=== PATIENT | female | born 1945 | race Two or more races ===

== ENCOUNTER → 2020-08-10 10:24 | Outpatient (BNV) | payer MEDICARE, SELFPAY | PROVIDERS: PCP Nurse Practitioner Family; Visit Provider Internal Medicine Medical Oncology | DX: D51.9 Vitamin B12 deficiency anemia, unspecified (principal); Z85.038 Personal history of other malignant neoplasm of large intestine; Z92.21 Personal history of antineoplastic chemotherapy; Z98.0 Intestinal bypass and anastomosis status | CPT/HCPCS: 99212; 99213; 99214 ==

== ENCOUNTER 2020-09-13 14:40 | Outpatient (REF) | payer MEDICARE, SELFPAY ==
--- NOTE | 2020-09-13 14:46 | MM_ITS ---
EXAMINATION: MM SCREENING DIGITAL BREAST TOMOSYNTHESIS, BILATERAL CLINICAL INFORMATION: Screening. Asymptomatic. The lifetime risk of breast cancer based on the Tyrer-Cuzick Model is 2%. COMPARISON: Mammography: 09/08/2019, 09/02/2018, 08/16/2017 TECHNIQUE: Digital breast tomosynthesis is performed in both the craniocaudal and mediolateral oblique views along with computer-aided detection (CAD). Synthesized 2D images are generated from the tomosynthesis. FINDINGS: There are scattered areas of fibroglandular density (ACR BI-RADS breast composition Category b). There are no significant masses, abnormal calcifications, or other abnormalities. There is chronic bilateral nipple retraction. Scattered bilateral benign vascular and round and coarse calcifications are again seen. No significant changes. MM/MM tomosynthesis screening BI IMPRESSION: No significant changes from prior studies. ASSESSMENT: BI-RADS 2: Benign RECOMMENDATION: Routine annual mammography screening. This patient's information was entered into a reminder system with a target due date for their next mammogram.
== END 2020-09-13 14:41 | disposition home or self-care (01) ==
LOC: HO.MAMMO 14:40
PROVIDERS: Visit Provider Nurse Practitioner Family
DX: Z12.31 Encounter for screening mammogram for malignant neoplasm of breast (principal)
CPT/HCPCS: 77063; 77067

== ENCOUNTER 2020-12-14 13:15 | Emergency (ER) | payer MEDICARE, SELFPAY ==
--- NOTE | ~2020-12-14 | XR_ITS ---
EXAMINATION: CHEST AND CERVICAL SPINE CLINICAL INFORMATION: Tachycardia and neck pain COMPARISON: Chest radiograph 06/25/2012 TECHNIQUE: Single view chest 4 views cervical spine FINDINGS: Chest: No significant abnormality is seen involving the heart lungs mediastinum or bony thorax. Surgical clips are present in the midepigastrium. Cervical spine: There is mild exaggerated cervical lordosis. Mild degenerative changes are present with some endplate changes and mild disc space narrowing at C3-C4 and C4-C5. There is minimal retrolisthesis of C4 upon C5. No soft tissue swelling or fractures are seen.. XR/XR chest 1V IMPRESSION: No acute intrathoracic disease Degenerative changes in the cervical spine with minimal retrolisthesis C4 upon C5.
--- NOTE | ~2020-12-14 | XR_ITS ---
EXAMINATION: CHEST AND CERVICAL SPINE CLINICAL INFORMATION: Tachycardia and neck pain COMPARISON: Chest radiograph 06/25/2012 TECHNIQUE: Single view chest 4 views cervical spine FINDINGS: Chest: No significant abnormality is seen involving the heart lungs mediastinum or bony thorax. Surgical clips are present in the midepigastrium. Cervical spine: There is mild exaggerated cervical lordosis. Mild degenerative changes are present with some endplate changes and mild disc space narrowing at C3-C4 and C4-C5. There is minimal retrolisthesis of C4 upon C5. No soft tissue swelling or fractures are seen.. XR/XR cervical spine 2V IMPRESSION: No acute intrathoracic disease Degenerative changes in the cervical spine with minimal retrolisthesis C4 upon C5.
--- NOTE | ~2020-12-14 | CT_ITS ---
EXAMINATION: CT CHEST WITHOUT CONTRAST CLINICAL INFORMATION: Low O2 saturation. History of colon cancer. COMPARISON: Chest x-ray 12/14/2020. CT abdomen and pelvis 06/07/2009. PET/CT study 08/04/2015. TECHNIQUE: Multidetector volumetric CT imaging of the chest was done. Axial MIP volume rendering provided. Sagittal and coronal reformatted images were obtained. This CT examination was performed using dose optimization techniques as appropriate, variously including the following: *Automated exposure control. *Adjustment of mA and/or kV according to patient size (this includes techniques or standardized protocols for targeted exams where dose is matched to indication/reason for exam; i.e. extremities or head). *Use of iterative reconstruction technique. DLP: 177 mGy-cm FINDINGS: LUNGS: No focal consolidation. No interstitial lung disease. The central bronchial airways are open. Lung Nodules: Right Lun. There is a small area of tree-in-bud opacities in the peripheral right upper lobe, axial image 23-25/53 series 4. These are not seen on the prior PET/CT study of 08/04/2015. 2. A 6 x 4 mm (average diameter 5 mm) nodule right upper lobe, axial image 162/441 series 5. This demonstrates irregular margins. This lesion was present on the PET/CT study of 08/04/2015 and remains unchanged. 3. A 3 mm nodule right middle lobe, axial image 272/441 series 5. 4. A 5 mm nodule right lower lobe, axial image 248/441 series 5. This lesion was present on the PET/CT study of 08/04/2015 and remains unchanged. 5. A 4 mm nodule right upper lobe, axial image 101/441 series 5. Left Lun. A 4 mm nodule left upper lobe, axial image 80/441 series 5. 2. A 4 mm nodule left lower lobe, axial image 231/441 series 5. 3. A 2-3 mm left lower lobe lung nodule, axial image 224/441 series 5. There are a few additional 1 to 2 mm sized lung nodules scattered bilaterally. MEDIASTINUM: There is no mediastinal mass or significant lymphadenopathy. The heart size is normal. No pericardial effusion. Moderate volume of coronary artery calcifications. Small volume of calcifications of the thoracic aorta. No aneurysm of the aorta. The thyroid is unremarkable. PLEURA: There is no pleural effusion. No pleural mass or thickening. AXILLA: No lymphadenopathy. UPPER ABDOMEN: There are surgical clips in the upper central abdomen. By history, patient's had a prior right hemicolectomy. OSSEOUS STRUCTURES: No acute osseous abnormality. There is a large vertebral hemangioma involving the T11 vertebrae. CT/CT chest wo con IMPRESSION: 1. No acute abnormality of the chest. 2. Multiple small bilateral lung nodules. The largest measures 6 x 4 mm in the right upper lobe and was present on a prior PET/CT study of 08/04/2015. A group of tree-in-bud opacities in the right upper lobe were not present on the prior PET/CT study. Tree-in-bud opacities are nonspecific but can be seen with inflammation. Various management parameters for solitary pulmonary nodules are in the literature. According to the UPDATED 2017 Fleischner Society recommendations, the advised follow up imaging for solid nodules < 6 mm is: LOW RISK PATIENT: No routine follow up. HIGH RISK PATIENT: Optional CT at 12 months. Reference: Guidelines for Management of Incidental Pulmonary Nodules Detected on CT Images: From the Fleischner Society 2017.
[2020-12-14 15:22] VITALS: BP 153/63; PULSE 97; RESP 18; TEMP 36.9; O2SAT 98; BMI 29.1
[2020-12-14 20:45] VITALS: BP 153/84; PULSE 110; RESP 18; TEMP 37.3; O2SAT 95
--- NOTE | 2020-12-14 20:52 | ECG_ITS ---
Test Reason : CHEST AND NECK PAIN Blood Pressure : / mmHG Vent. Rate : 093 BPM Atrial Rate : 093 BPM P-R Int : 152 ms QRS Dur : 076 ms QT Int : 360 ms P-R-T Axes : 066 063 059 degrees QTc Int : 447 ms Normal sinus rhythm Possible Anterior infarct , age undetermined Abnormal ECG When compared with ECG of 25-JUN-2012 11:24, No significant change was found Referred By: Rebeka Vegas Electronically Signed By:JOHANA PELAYO MD
[2020-12-14 21:09] LABS: MANUAL DIFF FLAG NO
[2020-12-14 21:11] LABS: Basophils Percent Auto 0.3 % (0-2); Eosinophils Percent Auto 0.2 % (0-4); Hematocrit 36.4 % (37-47); Hemoglobin 11.3 g/dl (12.0-16.0); Imm Gran Abs Auto 0.03 X10*3/uL (0.00-0.03); Imm Gran Pct Auto 0.2 % (0.0-0.4); Lymphocytes Absolute Auto 2.1 X10*3/uL (1.2-4.9); Lymphocytes Percent Auto 17.4 % (20-40); Mean Corpuscular Volume 83.9 fL (80-98); Mean Platelet Volume 11.1 fL (9.4-12.3); Monocytes Percent Auto 8.1 % (2-11); Neutrophils Percent Auto 73.8 % (45-73); Platelet Count 222 X10*3/uL (160-400); Red Blood Count 4.34 X10*6/uL (4.20-5.50); Red Cell Distribution Width 15.3 % (11.0-16.0); White Blood Count 12.3 X10*3/uL (4.8-10.8)
[2020-12-14 21:16] LABS: INTERNATIONAL NORM RATIO 1.2 (0.9-1.1); Prothrombin Time 13.8 SEC (10.8-13.0)
[2020-12-14 21:18] LABS: Partial Thromboplastin Time 33.5 SEC (24.1-38.0)
[2020-12-14 21:32] LABS: Lactic Acid 1.3 mmol/L (0.5-2.0)
[2020-12-14 21:42] LABS: Troponin-I High Sensitivity 3.5 ng/L (<3.5-17.0)
--- NOTE | 2020-12-14 21:46 | ED_ITS ---
HPI - General Adult General Chief complaint: Neck Pain/Injury Stated complaint: neck pain Time Seen by Provider: 12/14/20 22:07 Source: patient Mode of arrival: ambulatory Limitations: language barrier History of Present Illness HPI narrative: 75-year-old female with past medical history of colon cancer, primary biliary cirrhosis, hepatectomy, colon resection secondary to small-bowel obstruction, on opioids for pain management presents with 4 days of neck pain. She states that the pain is to both muscles on the sides of her neck, it makes it hard for her to turn her neck left or right. She does not describe any other symptoms, denies chest pain or pressure, palpitations, shortness of breath, abdominal pain, abdominal distention, dysuria, hematuria, loss of balance, edema or any other concerning symptoms. Onset (ago): day(s) (4) Location: neck Radiation: non-radiation Severity: moderate Severity scale (1-10): 7 Quality: aching Pain Consistency: constant Relieving factors: none Exacerbating factors: movement Associated symptoms: denies other symptoms Treatments prior to arrival: none Related Data Home Medications Medication Instructions Recorded Confirmed aspirin 1 tab PO DAILY 08/10/20 08/10/20 atorvastatin 1 tab PO DAILY 08/10/20 08/10/20 calcium citrate [Calcitrate] 1 tab PO BID 08/10/20 08/10/20 cholecalciferol (vitamin D3) 1 cap PO DAILY 08/10/20 08/10/20 [Vitamin D3] fluticasone propion-salmeterol 2 puff INHALATION BID 08/10/20 08/10/20 [Advair HFA] folic acid 1 tab PO DAILY 08/10/20 08/10/20 levothyroxine 1 tab PO DAILY 08/10/20 08/10/20 losartan-hydrochlorothiazide 1 tab PO DAILY 08/10/20 08/10/20 omeprazole 1 cap PO BID 08/10/20 08/10/20 oxycodone 1 tab PO Q12H PRN 08/10/20 08/10/20 zolpidem 1 tab PO BEDTIME PRN 08/10/20 08/10/20 Previous Rx's Medication Instructions Recorded ondansetron HCl [Zofran] 4 mg PO Q8H PRN #30 tab 12/15/20 Allergies Allergy/AdvReac Type Severity Reaction Status Date / Time No Known Allergies Allergy Verified 12/14/20 15:22 Review of Systems Review of Systems: Constitutional: No Fever, No Chills ENT/Mouth: No Ear Pain, No Hoarseness, No sore throat Eyes: No Eye Pain, No Swelling, No Redness, No Foreign Body Cardiovascular: No Chest Pain, No SOB Respiratory: No Cough, No Dyspnea Gastrointestinal: No Nausea, No Vomiting, No Diarrhea, No abdominal Pain Genitourinary: No Dysuria, No Hematuria Musculoskeletal: positive neck pain, No Myalgias, No Joint Swelling Skin: No Skin lacerations, No rash Neuro: No Weakness, No Numbness, No Paresthesias, No Loss of Consciousness, No Dizziness, No Headache Psych: No Anxiety/Panic, No Depression Heme/Lymph: no easy bruising, no Lymphadenopathy Endocrine: No Polyuria, No Polydipsia Yes all other systems are reviewed and are negative FOR[facility]LY [facility], [facility] Past Medical History Attestation statement: The following information was validated with the patient. Source: old records reviewed Medical History (Updated 12/15/20 @ 00:19 by Rebeka Vegas NP) Asthma Colon cancer High cholesterol HTN (hypertension) Insomnia Surgical History History of surgery of liver Social History Social History Alcohol intake: never Smoking Status: Unknown if ever smoked Smoked in Last 30 Days: No Use of substances other than those prescribed or required for medical reasons: No Advance Directives: No Advance Directives Information Provided: No Physical Exam 2 Vital Signs: Vital Signs: Last Vital Signs Temp 98.0 F 12/14/20 23:38 Pulse 85 12/14/20 23:38 Resp 18 12/14/20 23:38 BP 155/67 H 12/14/20 23:38 Pulse Ox 97 12/14/20 23:38 Body Mass Index 29.1 Appearance: Alert. Oriented X3. No acute distress. Head: Normal external exam. Normocephalic. Atraumatic. No Silva signs noted. No raccoon eyes noted Eyes: PERRLA. EOMI. Conjunctiva and sclera normal. Eyelids normal. ENT: TM's Normal. Pharynx normal. Uvula midline. Moist mucous membranes. No trismus noted. No drooling noted. No muffled voice noted. Neck: Tenderness noted to sternocleidomastoid muscles, no cervical lymphadenopathy, Normal inspection. Neck supple. Thyroid Normal. No meningeal signs. No neck mass noted. CVS: Normal heart rate and rhythm. Heart sound normal. No murmurs noted. Pulses equal to all extremities. Respiratory: No respiratory distress. Painless inspiration. Breath sounds normal. No wheezes/rales/rhonchi noted. Chest nontender. No accessory muscle usage noted or decreased air movement noted. Abdomen: Soft and nontender. Bowel sounds normal in all 4 quadrants. No distention noted. No organomegaly noted. No visible injury noted. Back: No CVA tenderness. Full range of motion noted. Skin: Skin warm and dry. Normal skin color. Normal skin turgor. No rashes/lesions/lacerations noted. Extremities: No lower extremity edema. Extremities exhibit normal range of motion. Extremities nontender. Neuro: cranial nerves 2-12 intact, no focal neural deficits, strength 5/5 to all extremities, No motor deficit. No sensory deficit. Reflexes normal. Course Course Course Narrative: 75-year-old female with history of colon cancer, primary biliary cirrhosis, liver resection, colon resection, presents with 4 days of neck pain. Had a waiting room time of 7 hours and 32 minutes prior to presenting to bed 21. Vital signs show O2 sat of 94% on my evaluation, will order CT scan of the chest, x-rays of cervical spine. Patient did have hepatectomy with removal of 30% of her liver with pathology showing reactive lymphoid hyperplasia also primary biliary cirrhosis. Also had bowel obstruction complications and had small-bowel resection on November 30, 2015. Review of PET scan from 08/04/2015 does not indicate any findings in the lungs or at T11. Investigation of chart shows positive history of colon cancer, with PET scan showing concern for liver lesion dating back to 2016. Do not see any notation regarding T11 hemangioma versus mass or notation of multiple lung nodules bilaterally. X-rays are negative for acute findings however does show degenerative disc disease. Lab values and diagnostic studies discussed with Dr Krishnan. These findings were discussed with hospitalist, hospitalist feels that this patient can be followed up outpatient Oncology, discussion with family, brought in to discuss this plan. Patient and patient's family feel confident that they can manage care as an outpatient and follow-up with Oncology Dr. Lopez tomorrow. [place] text message sent to Dr. Lopez as well as chart. park interpreter utilized for all correspondence. Will translate utilized for discharge instructions. Medical Decision Making Differential Diagnosis Differential Diagnosis: Neck strain, degenerative disc disease Medical Records Medical records reviewed: Yes I reviewed the patient's medical records. Lab Data Lab results reviewed: Yes I reviewed the patient's lab results. Result diagrams: 12/14/20 21:02 12/14/20 21:53 Labs: Lab Results 12/14/20 12/14/20 12/14/20 Range/Units 21:02 21:02 21:02 WBC 12.3 H (4.8-10.8) X10*3/uL RBC 4.34 (4.20-5.50) X10*6/uL Hgb 11.3 L (12.0-16.0) g/dl Hct 36.4 L (37-47) % MCV 83.9 (80-98) fL MCH 26.0 L (27.0-33.0) pg MCHC 31.0 (31.0-35.0) g/dl RDW 15.3 (11.0-16.0) % Plt Count 222 (160-400) X10*3/uL MPV 11.1 (9.4-12.3) fL Immature Gran % (Auto) 0.2 (0.0-0.4) % Neut % (Auto) 73.8 H (45-73) % Lymph % (Auto) 17.4 L (20-40) % [place] % (Auto) 8.1 (2-11) % Eos % (Auto) 0.2 (0-4) % Baso % (Auto) 0.3 (0-2) % Lymph # (Auto) 2.1 (1.2-4.9) X10*3/uL [place] # (Auto) 1.0 (0.1-1.2) X10*3/uL Eos # (Auto) 0.0 (0.0-0.4) X10*3/uL Baso # (Auto) 0.0 (0.0-0.2) X10*3/uL Abs Immat Gran (auto) 0.03 (0.00-0.03) X10*3/uL Absolute Neuts (auto) 9.0 H (2.0-8.3) X10*3/uL Absolute Nucleated RBC 0.000 (0.0-0.012) X10*3/uL Nucleated RBC % (auto) 0.0 (0.0-0.2) /100WBC PT 13.8 H (10.8-13.0) SEC INR 1.2 H (0.9-1.1) APTT 33.5 (24.1-38.0) SEC Sodium (135-145) mmol/L Potassium (3.3-5.1) mmol/L Chloride (96-108) mmol/L Carbon Dioxide (22-29) mmol/L Anion Gap (12-20) BUN (9-16) mg/dL Creatinine (0.5-1.4) mg/dL Estim Creat Clear Calc Estimated GFR Random Glucose (60-115) mg/dL Lactic Acid 1.3 (0.5-2.0) mmol/L Calcium (8.4-10.2) mg/dL Magnesium (1.6-2.6) mg/dL Total Bilirubin (0.0-1.0) mg/dL Direct Bilirubin (0.0-0.5) mg/dL AST (5-31) U/L ALT (0-31) U/L Alkaline Phosphatase (39-117) U/L Troponin I High Sens (<3.5-17.0) ng/L Total Protein (6.5-8.0) g/dL Albumin (3.5-5.0) g/dL Lipase (8-78) U/L Urine Color Urine Appearance Urine pH (5.0-8.0) Ur Specific [place] (1.005-1.025) Urine Protein (NEG-TRACE) MG/DL Urine Glucose (UA) (NEG) MG/DL Urine Ketones (NEG) MG/DL Urine Blood (NEG) Urine Nitrite (NEG) Ur Leukocyte Esterase (NEG) Coronavirus (PCR) (Negative) Influenza Type A (PCR) (Negative) Influenza Type B (PCR) (Negative) RSV RNA Qual (PCR) (Negative) 12/14/20 12/14/20 12/14/20 Range/Units 21:02 21:32 21:53 WBC (4.8-10.8) X10*3/uL RBC (4.20-5.50) X10*6/uL Hgb (12.0-16.0) g/dl Hct (37-47) % MCV (80-98) fL MCH (27.0-33.0) pg MCHC (31.0-35.0) g/dl RDW (11.0-16.0) % Plt Count (160-400) X10*3/uL MPV (9.4-12.3) fL Immature Gran % (Auto) (0.0-0.4) % Neut % (Auto) (45-73) % Lymph % (Auto) (20-40) % [place] % (Auto) (2-11) % Eos % (Auto) (0-4) % Baso % (Auto) (0-2) % Lymph # (Auto) (1.2-4.9) X10*3/uL [place] # (Auto) (0.1-1.2) X10*3/uL Eos # (Auto) (0.0-0.4) X10*3/uL Baso # (Auto) (0.0-0.2) X10*3/uL Abs Immat Gran (auto) (0.00-0.03) X10*3/uL Absolute Neuts (auto) (2.0-8.3) X10*3/uL Absolute Nucleated RBC (0.0-0.012) X10*3/uL Nucleated RBC % (auto) (0.0-0.2) /100WBC PT (10.8-13.0) SEC INR (0.9-1.1) APTT (24.1-38.0) SEC Sodium 137 (135-145) mmol/L Potassium 3.5 (3.3-5.1) mmol/L Chloride 96 (96-108) mmol/L Carbon Dioxide 30 H (22-29) mmol/L Anion Gap 15 (12-20) BUN 10 (9-16) mg/dL Creatinine 0.73 (0.5-1.4) mg/dL Estim Creat Clear Calc 46.2 Estimated GFR > 60 Random Glucose 119 H (60-115) mg/dL Lactic Acid (0.5-2.0) mmol/L Calcium 9.4 (8.4-10.2) mg/dL Magnesium 2.1 (1.6-2.6) mg/dL Total Bilirubin 1.7 H (0.0-1.0) mg/dL Direct Bilirubin 0.7 H (0.0-0.5) mg/dL AST 12 (5-31) U/L ALT 9 (0-31) U/L Alkaline Phosphatase 76 (39-117) U/L Troponin I High Sens 3.5 (<3.5-17.0) ng/L Total Protein 7.2 (6.5-8.0) g/dL Albumin 4.3 (3.5-5.0) g/dL Lipase 22 (8-78) U/L Urine Color Urine Appearance Urine pH (5.0-8.0) Ur Specific [place] (1.005-1.025) Urine Protein (NEG-TRACE) MG/DL Urine Glucose (UA) (NEG) MG/DL Urine Ketones (NEG) MG/DL Urine Blood (NEG) Urine Nitrite (NEG) Ur Leukocyte Esterase (NEG) Coronavirus (PCR) NEGATIVE (Negative) Influenza Type A (PCR) NEGATIVE (Negative) Influenza Type B (PCR) NEGATIVE (Negative) RSV RNA Qual (PCR) NEGATIVE (Negative) 12/14/20 Range/Units 23:37 WBC (4.8-10.8) X10*3/uL RBC (4.20-5.50) X10*6/uL Hgb (12.0-16.0) g/dl Hct (37-47) % MCV (80-98) fL MCH (27.0-33.0) pg MCHC (31.0-35.0) g/dl RDW (11.0-16.0) % Plt Count (160-400) X10*3/uL MPV (9.4-12.3) fL Immature Gran % (Auto) (0.0-0.4) % Neut % (Auto) (45-73) % Lymph % (Auto) (20-40) % [place] % (Auto) (2-11) % Eos % (Auto) (0-4) % Baso % (Auto) (0-2) % Lymph # (Auto) (1.2-4.9) X10*3/uL [place] # (Auto) (0.1-1.2) X10*3/uL Eos # (Auto) (0.0-0.4) X10*3/uL Baso # (Auto) (0.0-0.2) X10*3/uL Abs Immat Gran (auto) (0.00-0.03) X10*3/uL Absolute Neuts (auto) (2.0-8.3) X10*3/uL Absolute Nucleated RBC (0.0-0.012) X10*3/uL Nucleated RBC % (auto) (0.0-0.2) /100WBC PT (10.8-13.0) SEC INR (0.9-1.1) APTT (24.1-38.0) SEC Sodium (135-145) mmol/L Potassium (3.3-5.1) mmol/L Chloride (96-108) mmol/L Carbon Dioxide (22-29) mmol/L Anion Gap (12-20) BUN (9-16) mg/dL Creatinine (0.5-1.4) mg/dL Estim Creat Clear Calc Estimated GFR Random Glucose (60-115) mg/dL Lactic Acid (0.5-2.0) mmol/L Calcium (8.4-10.2) mg/dL Magnesium (1.6-2.6) mg/dL Total Bilirubin (0.0-1.0) mg/dL Direct Bilirubin (0.0-0.5) mg/dL AST (5-31) U/L ALT (0-31) U/L Alkaline Phosphatase (39-117) U/L Troponin I High Sens (<3.5-17.0) ng/L Total Protein (6.5-8.0) g/dL Albumin (3.5-5.0) g/dL Lipase (8-78) U/L Urine Color YELLOW Urine Appearance CLEAR Urine pH 7.0 (5.0-8.0) Ur Specific [place] 1.010 (1.005-1.025) Urine Protein NEG (NEG-TRACE) MG/DL Urine Glucose (UA) NEG (NEG) MG/DL Urine Ketones NEG (NEG) MG/DL Urine Blood NEG (NEG) Urine Nitrite NEG (NEG) Ur Leukocyte Esterase NEG (NEG) Coronavirus (PCR) (Negative) Influenza Type A (PCR) (Negative) Influenza Type B (PCR) (Negative) RSV RNA Qual (PCR) (Negative) Imaging Data Chest and cervical spine x-ray: Attestation: I personally reviewed and interpreted this imaging study as follows: Radiologist's impression: EXAMINATION: CHEST AND CERVICAL SPINE CLINICAL INFORMATION: Tachycardia and neck pain COMPARISON: Chest radiograph 06/25/2012 TECHNIQUE: Single view chest 4 views cervical spine FINDINGS: Chest: No significant abnormality is seen involving the heart lungs mediastinum or bony thorax. Surgical clips are present in the midepigastrium. Cervical spine: There is mild exaggerated cervical lordosis. Mild degenerative changes are present with some endplate changes and mild disc space narrowing at C3-C4 and C4-C5. There is minimal retrolisthesis of C4 upon C5. No soft tissue swelling or fractures are seen.. XR/XR cervical spine 2V IMPRESSION: No acute intrathoracic disease Degenerative changes in the cervical spine with minimal retrolisthesis C4 upon C5. CT scan - chest: Attestation: I personally reviewed and interpreted this imaging study as follows: Radiologist's impression: EXAMINATION: CT CHEST WITHOUT CONTRAST CLINICAL INFORMATION: Low O2 saturation. History of colon cancer. COMPARISON: Chest x-ray 12/14/2020. CT abdomen and pelvis 06/07/2009. PET/CT study 08/04/2015. TECHNIQUE: Multidetector volumetric CT imaging of the chest was done. Axial MIP volume rendering provided. Sagittal and coronal reformatted images were obtained. This CT examination was performed using dose optimization techniques as appropriate, variously including the following: *Automated exposure control. *Adjustment of mA and/or kV according to patient size (this includes techniques or standardized protocols for targeted exams where dose is matched to indication/reason for exam; i.e. extremities or head). *Use of iterative reconstruction technique. DLP: 177 mGy-cm FINDINGS: LUNGS: No focal consolidation. No interstitial lung disease. The central bronchial airways are open. Lung Nodules: Right Lun. There is a small area of tree-in-bud opacities in the peripheral right upper lobe, axial image 23-25/53 series 4. These are not seen on the prior PET/CT study of 08/04/2015. 2. A 6 x 4 mm (average diameter 5 mm) nodule right upper lobe, axial image 162/441 series 5. This demonstrates irregular margins. This lesion was present on the PET/CT study of 08/04/2015 and remains unchanged. 3. A 3 mm nodule right middle lobe, axial image 272/441 series 5. 4. A 5 mm nodule right lower lobe, axial image 248/441 series 5. This lesion was present on the PET/CT study of 08/04/2015 and remains unchanged. 5. A 4 mm nodule right upper lobe, axial image 101/441 series 5. Left Lun. A 4 mm nodule left upper lobe, axial image 80/441 series 5. 2. A 4 mm nodule left lower lobe, axial image 231/441 series 5. 3. A 2-3 mm left lower lobe lung nodule, axial image 224/441 series 5. There are a few additional 1 to 2 mm sized lung nodules scattered bilaterally. MEDIASTINUM: There is no mediastinal mass or significant lymphadenopathy. The heart size is normal. No pericardial effusion. Moderate volume of coronary artery calcifications. Small volume of calcifications of the thoracic aorta. No aneurysm of the aorta. The thyroid is unremarkable. PLEURA: There is no pleural effusion. No pleural mass or thickening. AXILLA: No lymphadenopathy. UPPER ABDOMEN: There are surgical clips in the upper central abdomen. By history, patient's had a prior right hemicolectomy. OSSEOUS STRUCTURES: No acute osseous abnormality. There is a large vertebral hemangioma involving the T11 vertebrae. CT/CT chest wo con IMPRESSION: 1. No acute abnormality of the chest. 2. Multiple small bilateral lung nodules. The largest measures 6 x 4 mm in the right upper lobe and was present on a prior PET/CT study of 08/04/2015. A group of tree-in-bud opacities in the right upper lobe were not present on the prior PET/CT study. Tree-in-bud opacities are nonspecific but can be seen with inflammation. Various management parameters for solitary pulmonary nodules are in the literature. According to the UPDATED 2017 Fleischner Society recommendations, the advised follow up imaging for solid nodules < 6 mm is: LOW RISK PATIENT: No routine follow up. HIGH RISK PATIENT: Optional CT at 12 months. Reference: Guidelines for Management of Incidental Pulmonary Nodules Detected on CT Images: From the Fleischner Society 2017. ECG Data Attestation: I personally reviewed and interpreted this ECG as follows: Prior ECG tracings: available for review Interpretation: Vent. rate 93 BPM SC interval 152 ms QRS duration 76 ms QT/QTc 360/447 ms P-R-T axes 66 63 59 Normal sinus rhythm Possible Anterior infarct , age undetermined Abnormal ECG When compared with ECG of 25-JUN-2012 11:24, No significant change was found Date December 14, 2020, time 9:17 p.m. Discharge Plan Discharge Clinical Impression: Disc disorder of cervical region, Hemangioma of spine, Incidental pulmonary nodule, > 3mm and < 8mm Patient Disposition: Home, Self-Care Instructions: Cervical Radiculopathy (ED), Pulmonary Nodules (ED), Degenerative Disc Disease (ED) Additional Instructions: Te evaluaron por dolor de marcin. Bas?ndome en beth antecedentes de c?ncer de colon y cirrosis biliar primaria ped? domingo tomograf?a computarizada de los pulmones. La tomograf?a computarizada del t?rax muestra m?ltiples n?dulos tanto en los pulmones johnathan en un hemangioma o tumor en las v?rtebras T11. Estos hallazgos son altamente sospechosos para la enfermedad metast?tania. La enfermedad metast?tania significa que el c?ncer puede haberse diseminado a los pulmones y la columna vertebral. Estos hallazgos no estuvieron presentes en sorto exploraci?n por PET en 2015. Es muy importante que tray un seguimiento con sorto onc?logo, el Dr. Lopez. Por favor, ll?dinah ma?pineda y solicite domingo adrianne para la evaluaci?n. Le recetamos n?useas a Zofran. Por favor, tome cecilia medicamento seg?n las instrucciones. Por favor, tome sorto oxicodona johnathan se le recet? anteriormente. Usted recibi? domingo receta el 12/11/2020. Esme por elegir cecilia departamento de emergencias para sorto evaluaci?n. Por favor, tray un seguimiento con el m?dico de atenci?n primaria seg?n sea necesa summer. Regrese al servicio de emergencias para cualquier s?ntoma nuevo, preocupante o que empeore. You were evaluated for neck pain. Based on her past history of colon cancer and primary biliary cirrhosis I ordered a CT scan of the lungs. CT scan of the chest shows multiple nodules in both lungs and a hemangioma or tumor on T11 vertebrae. These findings are highly suspicious for metastatic disease. Metastatic disease means that the cancer may have spread to your lungs and spine. These findings were not present on your PET scan in 2016. Is very important that you follow-up with your oncologist, Dr. Lopez. Please call her tomorrow and request an appointment for evaluation. We prescribed Zofran for nausea. Please take this medication as directed. Please take your oxycodone as previously prescribed. You received a prescription on 12/11/2020. Thank you for choosing this emergency department for evaluation. Please follow-up with primary care physician as needed. Return to the emergency department for any new, concerning, or worsening symptoms. Prescriptions: New ondansetron HCl [Zofran] 4 mg tablet 4 mg PO Q8H PRN (Reason: nausea and vomiting) Qty: 30 RF: 0 No Action omeprazole 40 mg capsule,delayed release(DR/EC) 1 cap PO BID RF: 0 folic acid 1 mg tablet 1 tab PO DAILY RF: 0 Advair HFA 115-21 mcg/actuation HFA aerosol inhaler 2 puff inhalation BID RF: 0 atorvastatin 10 mg tablet 1 tab PO DAILY RF: 0 aspirin 81 mg tablet,delayed release (DR/EC) 1 tab PO DAILY RF: 0 levothyroxine 75 mcg tablet 1 tab PO DAILY RF: 0 zolpidem 5 mg tablet 1 tab PO BEDTIME PRN (Reason: Insomnia) RF: 0 losartan-hydrochlorothiazide 50-12.5 mg tablet 1 tab PO DAILY RF: 0 oxycodone 5 mg tablet 1 tab PO Q12H PRN (Reason: moderate pain) RF: 0 calcium citrate [Calcitrate] 200 mg (950 mg) tablet 1 tab PO BID RF: 0 cholecalciferol (vitamin D3) [Vitamin D3] 50 mcg (2,000 unit) capsule 1 cap PO DAILY RF: 0 Referrals: Aakash Lopez MD [Physician] - 2 days (Tree-in-bud opacities, multiple pulmonary nodules, have angioma or mass on T11) Interventions: ED Discharge Assessment Last Done: 12/15/20 00:51 Discharge Date/Time: 12/15/20 00:54
[2020-12-14] MEDS: 0.9 % Sodium Chloride 1,000 ML 999 ML IVCONT ×2 (22:16→23:33)
[2020-12-14 22:18] VITALS: BP 150/75; PULSE 87; RESP 16; O2SAT 97
[2020-12-14 22:19] LABS: Influenza A PCR NEGATIVE (Negative); Influenza B PCR NEGATIVE (Negative); Resp Syncy Virus RNA Qual PCR NEGATIVE (Negative); SARS COV2 PCR INHOUSE NEGATIVE (Negative)
[2020-12-14 22:36] LABS: Alanine Aminotransferase 9 U/L (0-31); Albumin Level 4.3 g/dL (3.5-5.0); Alkaline Phosphatase 76 U/L (39-117); Anion Gap 15 (12-20); Aspartate Amino Transferase 12 U/L (5-31); Bilirubin Direct 0.7 mg/dL (0.0-0.5); Bilirubin Total 1.7 mg/dL (0.0-1.0); Blood Urea Nitrogen 10 mg/dL (9-16); Calcium 9.4 mg/dL (8.4-10.2); Carbon Dioxide 30 mmol/L (22-29); Chloride 96 mmol/L (96-108); Creatinine Clr Calc Pharmacy 46.2; Estimated Glomerular Filt Rate > 60; Glucose Random 119 mg/dL (60-115); Lipase 22 U/L (8-78); Magnesium 2.1 mg/dL (1.6-2.6); Potassium 3.5 mmol/L (3.3-5.1); Sodium 137 mmol/L (135-145); Total Protein 7.2 g/dL (6.5-8.0)
[2020-12-14 23:38] VITALS: BP 155/67; PULSE 85; RESP 18; TEMP 36.7; O2SAT 97
[2020-12-14 23:47] LABS: Glucose Urine UA NEG (NEG); Leukocyte Esterase Urine NEG (NEG); Nitrite Urine NEG (NEG); Urine Blood NEG (NEG); Urine Ketones NEG (NEG); Urine Protein NEG (NEG-TRACE)
[2020-12-14 23:51] LABS: Appearance Urine CLEAR; Color Urine YELLOW
[2020-12-15] MEDS: oxyCODONE HCl Immed Release 5 MG TABLET PO (00:44)
== END 2020-12-15 00:54 | disposition home or self-care (01) ==
PROVIDERS: Nurse Practitioner Family; Emergency Provider Emergency Medicine
DX: M50.11 Cervical disc disorder with radiculopathy, high cervical region (principal); D18.09 Hemangioma of other sites; R00.0 Tachycardia, unspecified; R91.8 Other nonspecific abnormal finding of lung field; Z20.822 Contact with and (suspected) exposure to COVID-19; I10 Essential (primary) hypertension; K74.3 Primary biliary cirrhosis; J45.909 Unspecified asthma, uncomplicated; Z85.038 Personal history of other malignant neoplasm of large intestine; Z79.891 Long term (current) use of opiate analgesic; Z79.82 Long term (current) use of aspirin; Z79.899 Other long term (current) drug therapy
CPT/HCPCS: 0241U; 36415; 71045; 71250; 72040; 80048; 80076; 81003; 83605; 83690; 83735; 84484; 85025; 85610; 85730; 87040; 93005; 99284

== ENCOUNTER 2021-09-16 10:35 | Outpatient (REF) | payer MEDICARE, SELFPAY ==
--- NOTE | ~2021-09-16 | MM_ITS ---
EXAMINATION: MM SCREENING DIGITAL BREAST TOMOSYNTHESIS, BILATERAL CLINICAL INFORMATION: Screening. Asymptomatic. The lifetime risk of breast cancer based on the Tyrer-Cuzick Model is 1%. COMPARISON: Mammography: 09/13/2020, 09/08/2019, 09/02/2018 TECHNIQUE: Digital breast tomosynthesis is performed in both the craniocaudal and mediolateral oblique views along with computer-aided detection (CAD). Synthesized 2D images are generated from the tomosynthesis. Additional right MLO view is provided. FINDINGS: There are scattered areas of fibroglandular density (ACR BI-RADS breast composition Category b). There are no significant masses, abnormal calcifications, or other abnormalities. Parenchymal pattern is similar to prior exams. No developing density. There are scattered benign coarse and vascular calcifications again seen. MM/MM tomosynthesis screening BI IMPRESSION: No mammographic evidence of malignancy. ASSESSMENT: BI-RADS 2: Benign RECOMMENDATION: Routine annual mammography screening. This patient's information was entered into a reminder system with a target due date for their next mammogram.
== END 2021-09-16 10:36 | disposition home or self-care (01) ==
LOC: HO.MAMMO 10:35
PROVIDERS: Visit Provider Nurse Practitioner
DX: Z12.31 Encounter for screening mammogram for malignant neoplasm of breast (principal)
CPT/HCPCS: 77063; 77067

== ENCOUNTER 2022-09-21 12:00 | Outpatient (REF) | payer MEDICARE, SELFPAY ==
--- NOTE | ~2022-09-21 | CT_ITS ---
EXAMINATION: CT CHEST WITH CONTRAST CLINICAL INFORMATION: Colon cancer. COMPARISON: Previous chest CT scan most recent November 2020. TECHNIQUE: Multidetector volumetric CT imaging of the chest was obtained after the administration of 85 mL of Omnipaque 350 intravenous contrast without immediate adverse reactions. Axial MIP volume rendering provided. Sagittal and coronal reformatted images were obtained. This CT examination was performed using dose optimization techniques as appropriate, variously including the following: *Automated exposure control *Adjustment of mA and/or kV according to patient size (this includes techniques or standardized protocols for targeted exams where dose is matched to indication/reason for exam; i.e. extremities or head) *Use of iterative reconstruction technique DLP: 83 mGy-cm FINDINGS: LUNGS: Biapical pleural and parenchymal scarring that is stable. Stable bilateral pulmonary nodules, the largest measuring 7 mm in the right upper lobe axial image 204 series 7 and 5 mm in the left upper lobe axial image 110 series 7. Tree-in-bud clustered nodules in the posterior segment of the right upper lobe on November 2020 exam appeared decreased. No new pulmonary nodule. MEDIASTINUM: Small stable pericardial effusion. Normal heart size. No enlarged hilar or mediastinal lymph nodes. Normal caliber thoracic aorta. PLEURA: There is no pleural effusion. No pleural mass or thickening. AXILLA: No lymphadenopathy. UPPER ABDOMEN: See abdominal and pelvic CT report from the same day. OSSEOUS STRUCTURES: T11 vertebral body hemangioma. Mild degenerative changes of the spine. CT/CT chest w IV con IMPRESSION: Interval decrease in size and number of clustered peribronchial nodules or tree-in-bud appearance in the posterior segment of the right upper lobe from November 2020. Otherwise, the pulmonary nodules are stable. Fleischner guidelines were followed.
--- NOTE | ~2022-09-21 | CT_ITS ---
EXAMINATION: CT ABDOMEN AND PELVIS WITH CONTRAST CLINICAL INFORMATION: Weight loss, anorexia, and anemia. History of colon cancer. COMPARISON: Previous CT of the abdomen and pelvis from May 2015 and PET/CT July 2015. TECHNIQUE: Multidetector volumetric images were obtained from the superior aspect of the liver through the pubic symphysis following administration 85 mL of Omnipaque 350 intravenous contrast. Sagittal and coronal reformatted images were obtained on the technologist's workstation. Oral contrast: Yes This CT examination was performed using dose optimization techniques as appropriate, variously including the following: *Automated exposure control *Adjustment of mA and/or kV according to patient size (this includes techniques or standardized protocols for targeted exams where dose is matched to indication/reason for exam; i.e. extremities or head) *Use of iterative reconstruction technique DLP: 199 mGy-cm FINDINGS: LUNG BASES: The visualized lung bases are unremarkable. LIVER, GALLBLADDER, AND BILIARY TREE: Left lobe of the liver has been removed. There is no intrahepatic biliary duct dilatation. Common bile duct appears slightly dilated measuring 1.3 cm. There is echogenic material in the distal common bile duct questionable for stone or sludge. The gallbladder has been removed. PANCREAS: Slightly dilated main pancreatic duct in the neck of the pancreas measuring 4 mm. The pancreas is otherwise normal. SPLEEN: Unremarkable ADRENAL GLANDS: Unremarkable KIDNEYS AND URETERS: A 6.5 cm left renal cyst. A 1 cm right renal cyst. The kidneys are otherwise normal. No imaging followup recommended. There is mild dilatation of the right proximal ureter. Previously identified abnormal low-attenuation soft tissue anterior to the right psoas muscle on previous exams is no longer seen. BLADDER: Unremarkable. GASTROINTESTINAL TRACT: Postsurgical changes following right colectomy. There are also postsurgical changes to the small bowel in the right lower quadrant. There is mild dilatation of the small bowel at the surgical staple line. There is soft tissue thickening adjacent to the surgical staple line worrisome for mass. For example axial image 51 series 3 and coronal reconstructed image 30 and sagittal reconstructed image 58. There is mild diverticulosis. No evidence of diverticulitis. The stomach is unremarkable. ABDOMINAL WALL: No significant hernia is appreciated. LYMPH NODES: Small, small bowel mesentery lymph nodes. No enlarged lymph nodes. VASCULAR: Unremarkable PELVIC VISCERA: The uterus appears to have been removed. No pelvic mass. OSSEOUS STRUCTURES: Degenerative changes of the spine. T11 vertebral body hemangioma. CT/CT abdomen pelvis w IV con IMPRESSION: Postsurgical changes following resection of the left lobe of the liver new in the interval from previous exam. Slightly dilated common bile duct measuring 1.3 cm and increased soft tissue in the distal common bile duct questionable for stone or sludge. Mild dilatation of the main pancreatic duct in the neck of the pancreas measuring up to 4 mm. Postsurgical changes following right colectomy. Postsurgical changes to the small bowel new in the interval from previous exam. Abnormal soft tissue at the surgical staple line worrisome for mass. Diverticulosis of the colon. Bilateral renal cysts. Fleischner guidelines were followed.
[2022-09-21] MEDS: Barium Sulfate Oral (Mocha) 450 ML ORAL.SUSP 900 ML PO (14:51)
[2022-09-21] MEDS: iohexoL 350 MG/ML 100 ML INFUS..BTL IV (14:52)
== END 2022-09-21 12:01 | disposition home or self-care (01) ==
LOC: HO.CT 12:00
PROVIDERS: Visit Provider Internal Medicine Medical Oncology
DX: C18.9 Malignant neoplasm of colon, unspecified (principal); R91.8 Other nonspecific abnormal finding of lung field
CPT/HCPCS: 71260; 74177; Q9967

== ENCOUNTER 2022-09-22 12:35 | Outpatient (REF) | payer MEDICARE, SELFPAY ==
--- NOTE | ~2022-09-22 | MM_ITS ---
EXAMINATION: MM SCREENING DIGITAL BREAST TOMOSYNTHESIS, BILATERAL CLINICAL INFORMATION: Screening. Asymptomatic. The lifetime risk of breast cancer based on the Tyrer-Cuzick Model is 1%. COMPARISON: Mammography: 09/16/2021, 09/13/2020, 09/08/2019 TECHNIQUE: Digital breast tomosynthesis is performed in both the craniocaudal and mediolateral oblique views along with computer-aided detection (CAD). Synthesized 2D images are generated from the tomosynthesis. FINDINGS: There are scattered areas of fibroglandular density (ACR BI-RADS breast composition Category b). There are no significant masses, abnormal calcifications, or other abnormalities. Parenchymal pattern is similar to prior studies. There is no developing density or architectural abnormality. The axilla and skin contours are unremarkable. No significant changes. MM/MM tomosynthesis screening BI IMPRESSION: No mammographic evidence of malignancy. ASSESSMENT: BI-RADS 1: Negative RECOMMENDATION: Routine annual mammography screening. This patient's information was entered into a reminder system with a target due date for their next mammogram.
== END 2022-09-22 12:36 | disposition home or self-care (01) ==
LOC: HO.MAMMO 12:35
PROVIDERS: PCP Registered Nurse; Visit Provider Registered Nurse
DX: Z12.31 Encounter for screening mammogram for malignant neoplasm of breast (principal)
CPT/HCPCS: 77063; 77067

== ENCOUNTER → 2022-12-08 10:55 | Outpatient (BNVA) | payer OTHER, SELFPAY | PROVIDERS: PCP Registered Nurse; Referring Provider Internal Medicine Medical Oncology; Visit Provider Surgery | DX: L90.5 Scar conditions and fibrosis of skin (principal) | CPT/HCPCS: 99202 ==

== ENCOUNTER 2022-12-26 13:19 | Outpatient (REF) | payer OTHER, SELFPAY ==
--- NOTE | ~2022-12-26 | PE_ITS ---
EXAMINATION: Fluorine-18 FDG PET/CT Scan CLINICAL INDICATION: History of colon cancer. Restaging. PROCEDURE: 120 minutes following the intravenous administration of 17.4 mCi of fluorine 18 FDG, images from the base of the skull to the mid thighs were obtained using a combined PET/CT scanner with CT scan based attenuation correction. No intravenous contrast was administered. Transverse, coronal, sagittal, and volume reconstruction projections were obtained. The patient's blood glucose as determined by a finger stick, was 87 mg/dl immediately prior to injection. The radiotracer was injected intravenously through left antecubital superficial vein, without any complications. Total CT exam dose-length product 202.76 mGy-cm * These CT images were obtained using dose optimization techniques as appropriate, variously including the following: Automated exposure control * Adjustment of mA and/or kV according to patient size (this includes techniques or standardized protocols for targeted exams where dose is matched to indication/reason for exam; i.e. extremities or head) * Use of iterative reconstruction technique COMPARISON: Prior whole-body PET CT study done on 08/04/2015. Most recent prior CT scan of the chest abdomen and pelvis dated 09/21/2022. FINDINGS: NECK AND VISUALIZED HEAD: No FDG avid focal disease. Mucoperiosteal thickening is present involving the left maxillary sinus, appear similar to prior study. THORAX: No FDG avid focal disease. Persistent stable small volume non-FDG avid pericardial effusion is seen within the base of the pericardial space. ABDOMEN AND PELVIS: Postsurgical changes of left lobe of the liver resection is seen. No FDG avid liver, spleen or adrenal disease. The common bile duct is mildly dilated, similar to most recent prior study dated 09/21/2022. Mild circumferential apparent mural thickening is noted at the proximal site of the surgical anastomosis involving the small bowel at right mid abdomen associated with mild FDG avidity with SUV max of 5.8 (158/223). Note is made of slight misregistration artifact between the CT and the PET images in this region. Intense FDG avidity is noted in the region of the rectum/anal canal with SUV max of 7.0 (200/223), previously 6.4. Focal FDG avidity is also noted within the proximal as well as distal part of the sigmoid colon with SUV max of 5.7 and 5.6 respectively (179/223). Colonic diverticulosis related changes are present. Postsurgical changes of right-sided colectomy is seen. MUSCULOSKELETAL: T11 vertebral body hemangioma. No suspicious FDG avid disease. No significant change. VASCULAR: Atherosclerotic disease of the aorta and its branches. No evidence of aneurysm. PET/PET CT fusion skull to thigh IMPRESSION: 1. Nonspecific focal FDG avidity in the region of the rectum/anal canal (SUV max of 7.0) and sigmoid colon (2 sites with SUV max of 5.7 and 5.6 respectively). Direct visualization/colonoscopy is recommended for further clarification, if not recently performed. 2. Mild nonspecific FDG avidity at the site of surgical anastomosis involving the small bowel at right mid abdomen with SUV max of 5.8. 3. Postsurgical changes of left lobe of the liver resection and no evidence of any FDG avid liver or adrenal or splenic disease. 4. Persistent stable small volume non-FDG avid pericardial effusion at the base of the pericardial space and mild mucoperiosteal thickening without any FDG avidity involving the left maxillary sinus.
== END 2022-12-26 13:20 | disposition home or self-care (01) ==
LOC: HO.PET 13:19
PROVIDERS: PCP Registered Nurse; Visit Provider Internal Medicine Medical Oncology
DX: Z13.89 Encounter for screening for other disorder (principal)

== ENCOUNTER 2023-01-12 08:52 | Day surgery (SDC) | payer OTHER, SELFPAY ==
--- NOTE | 2023-01-11 13:34 | P.CONAN_ITS ---
HPI - Anesthesia Eval Consult details Narrative: 77yo F for Colonoscopy PMF Active Problems Active Problems: All Active Problems (Updated 01/11/23 @ 13:00 by Josefa Araujo RN) Colon cancer (Acute) B12 deficiency anemia (Acute) Past Medical History Medical History Allergic rhinitis Asthma Colon cancer Depression FH: cholecystectomy High cholesterol HTN (hypertension) Insomnia Iron deficiency anemia Prediabetes Family History Family History Other No family history of cancer Surgical History Surgical History H/O colonoscopy H/O resection of liver H/O right hemicolectomy H/O: hysterectomy History of surgery of liver Social History Social History Household Members: Spouse Housing: Apartment Are you a primary director of career resources to a significant other at home: No Do you presently have visiting nurse or other home services: Yes (every 3 months through insurance) Alcohol intake: never Patient Tobacco Use Status: Never used Tobacco Use of substances other than those prescribed or required for medical reasons: No Have you been hit, kicked, punched, or otherwise hurt by someone within the past year? If so, by whom?: No Do you feel safe in your current relationship?: Yes Advance Directives: No Advance Directives Information Provided: No Do you have thoughts of harming others: None Do you have a plan to hurt others: No Plan Do you have the means to hurt others: No Recently lost weight without trying: Yes Eating poorly because of decreased appetite: No Patient : No service: No Current occupational status: disabled Meds Allergies Allergy/AdvReac Type Severity Reaction Status Date / Time No Known Allergies Allergy Verified 01/18/23 11:03 Home Medications Medication Instructions Recorded Confirmed Last Taken Type aspirin 81 mg tablet,delayed 1 tab PO DAILY 08/10/20 01/18/23 Unknown History release atorvastatin 10 mg tablet 1 tab PO DAILY 08/10/20 01/18/23 Unknown History calcium citrate 200 mg (950 mg) 1 tab PO BID 08/10/20 01/18/23 Unknown History tablet (Calcitrate) cholecalciferol (vitamin D3) 50 1 cap PO DAILY 08/10/20 01/18/23 Unknown History mcg (2,000 unit) capsule (Vitamin D3) fluticasone propionate 115 2 puff inhalation BID 08/10/20 01/18/23 Unknown History mcg-salmeterol 21 mcg/actuation HFA inhaler (Advair HFA) levothyroxine 75 mcg tablet 1 tab PO DAILY 08/10/20 01/18/23 Unknown History losartan 50 mg-hydrochlorothiazide 1 tab PO DAILY 08/10/20 01/18/23 01/12/23 History 12.5 mg tablet omeprazole 40 mg capsule,delayed 1 cap PO BID 08/10/20 01/18/23 Unknown History release zolpidem 5 mg tablet 1 tab PO BEDTIME PRN Insomnia 08/10/20 01/18/23 Unknown History naproxen 250 mg tablet 250 mg PO DAILY PRN moderate pain 01/11/23 01/18/23 Unknown History Exam Exam Date and Time: January 11, 2023 1334 Pertinent Lab Results Pertinent Lab Results: Laboratory Tests 01/02/23 01/02/23 08:42 08:42 WBC 6.9 Hgb 10.9 L Hct 35.8 L Plt Count 200 Sodium 140 Potassium 4.5 Chloride 102 Carbon Dioxide 28 BUN 14 Creatinine 0.78 Assessment and Plan Assessment Anesthesia Assessment: Chart Reviewed
[2023-01-12 10:20] VITALS: BMI 33.8
--- NOTE | 2023-01-12 10:25 | HO.ANESPROP2 ---
[facility] Active Problems Active Problems: All Active Problems (Updated 01/11/23 @ 13:00 by Josefa Araujo RN) Colon cancer (Acute) B12 deficiency anemia (Acute) Past Medical History Medical History Allergic rhinitis Asthma Colon cancer Depression FH: cholecystectomy High cholesterol HTN (hypertension) Insomnia Iron deficiency anemia Prediabetes Family History Family History Other No family history of cancer Surgical History Surgical History H/O colonoscopy H/O resection of liver H/O right hemicolectomy H/O: hysterectomy History of surgery of liver Social History Social History Household Members: Spouse Housing: Apartment Are you a primary primary care nurse practitioner to a significant other at home: No Do you presently have visiting nurse or other home services: Yes (every 3 months through insurance) Alcohol intake: never Patient Tobacco Use Status: Never used Tobacco Advance Directives: No Advance Directives Information Provided: Yes service: No Current occupational status: disabled Meds Allergies Allergy/AdvReac Type Severity Reaction Status Date / Time No Known Allergies Allergy Verified 01/02/23 09:11 Active Medications: Current Medications Albuterol Sulfate (Albuterol Sulfate (0.083%) 2.5 Mg/3 Ml Vial.Neb) 2.5 mg INHALE ONCE PRN PRN Reason: Shortness of Breath/Wheezing Lactated Ringer's (Lr) 1,000 mls @ 100 mls/hr IVCONT .Q10H COUNTS INCLUDE 234 BEDS AT THE [facility] Home Medications Medication Instructions Recorded Confirmed Last Taken Type aspirin 81 mg tablet,delayed 1 tab PO DAILY 08/10/20 01/02/23 Unknown History release atorvastatin 10 mg tablet 1 tab PO DAILY 08/10/20 01/02/23 Unknown History calcium citrate 200 mg (950 mg) 1 tab PO BID 08/10/20 01/02/23 Unknown History tablet (Calcitrate) cholecalciferol (vitamin D3) 50 1 cap PO DAILY 08/10/20 01/02/23 Unknown History mcg (2,000 unit) capsule (Vitamin D3) fluticasone propionate 115 2 puff inhalation BID 08/10/20 01/02/23 Unknown History mcg-salmeterol 21 mcg/actuation HFA inhaler (Advair HFA) levothyroxine 75 mcg tablet 1 tab PO DAILY 08/10/20 01/02/23 Unknown History losartan 50 mg-hydrochlorothiazide 1 tab PO DAILY 08/10/20 01/12/23 01/12/23 History 12.5 mg tablet omeprazole 40 mg capsule,delayed 1 cap PO BID 08/10/20 01/02/23 Unknown History release oxycodone 5 mg tablet 1 tab PO Q12H PRN moderate pain 08/10/20 01/02/23 Unknown History zolpidem 5 mg tablet 1 tab PO BEDTIME PRN Insomnia 08/10/20 01/02/23 Unknown History naproxen 250 mg tablet 250 mg PO DAILY PRN moderate pain 01/11/23 01/11/23 Unknown History Exam Exam Date and Time: January 12, 2023 5540
[2023-01-12 10:32] VITALS: BP 175/83; PULSE 86; RESP 16; TEMP 36.4; O2SAT 99
--- NOTE | 2023-01-12 10:41 | HO.ANESPROP2 ---
[facility] Active Problems Active Problems: All Active Problems (Updated 01/11/23 @ 13:00 by Josefa Araujo RN) Colon cancer (Acute) B12 deficiency anemia (Acute) Past Medical History Medical History Allergic rhinitis Asthma Colon cancer Depression FH: cholecystectomy High cholesterol HTN (hypertension) Insomnia Iron deficiency anemia Prediabetes Family History Family History Other No family history of cancer Surgical History Surgical History H/O colonoscopy H/O resection of liver H/O right hemicolectomy H/O: hysterectomy History of surgery of liver History of Problems with Anesthesia: No Social History Social History Household Members: Spouse Housing: Apartment Are you a primary child care provider to a significant other at home: No Do you presently have visiting nurse or other home services: Yes (every 3 months through insurance) Alcohol intake: never Patient Tobacco Use Status: Never used Tobacco Use of substances other than those prescribed or required for medical reasons: No Are you DNR?: No Advance Directives: No Advance Directives Information Provided: Yes Recently lost weight without trying: No How much weight loss: 2-13 pounds Nutrition Risks: No Nutritional Risk service: No Current occupational status: disabled Meds Allergies Allergy/AdvReac Type Severity Reaction Status Date / Time No Known Allergies Allergy Verified 01/02/23 09:11 Active Medications: Current Medications Albuterol Sulfate (Albuterol Sulfate (0.083%) 2.5 Mg/3 Ml Vial.Neb) 2.5 mg INHALE ONCE PRN PRN Reason: Shortness of Breath/Wheezing Lactated Ringer's (Lr) 1,000 mls @ 100 mls/hr IVCONT .Q10H [facility] Home Medications Medication Instructions Recorded Confirmed Last Taken Type aspirin 81 mg tablet,delayed 1 tab PO DAILY 08/10/20 01/02/23 Unknown History release atorvastatin 10 mg tablet 1 tab PO DAILY 08/10/20 01/02/23 Unknown History calcium citrate 200 mg (950 mg) 1 tab PO BID 08/10/20 01/02/23 Unknown History tablet (Calcitrate) cholecalciferol (vitamin D3) 50 1 cap PO DAILY 08/10/20 01/02/23 Unknown History mcg (2,000 unit) capsule (Vitamin D3) fluticasone propionate 115 2 puff inhalation BID 08/10/20 01/02/23 Unknown History mcg-salmeterol 21 mcg/actuation HFA inhaler (Advair HFA) levothyroxine 75 mcg tablet 1 tab PO DAILY 08/10/20 01/02/23 Unknown History losartan 50 mg-hydrochlorothiazide 1 tab PO DAILY 08/10/20 01/12/23 01/12/23 History 12.5 mg tablet omeprazole 40 mg capsule,delayed 1 cap PO BID 08/10/20 01/02/23 Unknown History release oxycodone 5 mg tablet 1 tab PO Q12H PRN moderate pain 08/10/20 01/02/23 Unknown History zolpidem 5 mg tablet 1 tab PO BEDTIME PRN Insomnia 08/10/20 01/02/23 Unknown History naproxen 250 mg tablet 250 mg PO DAILY PRN moderate pain 01/11/23 01/11/23 Unknown History Exam Exam Date and Time: January 12, 2023 1041 Height,Weight and Vital Signs: Height 4 ft Weight 50.349 kg Airway Mallampati Class: II TM Dist: >3cm Loose/Missing/Broken Teeth: No Heart: RRR Lungs: CTA Assessment and Plan Assessment Anesthesia Assessment: Anesthesia Plan Discussed and Chart Reviewed Final Anesthetic Review History of Problems with Anesthesia: No NPO: Yes ASA Class: II Final Preanesthetic Review: Meds/Allgs Chart Reviewed, Consent Obtained/Reviewed and Anes Risks/Benef Reviewed Patient Risk: Low Procedure Risk: Low Anesthetic Plan Anesthetic Plan: MAC: Disposition: Standard PACU
[2023-01-12] MEDS: Lactated Ringers 1,000 ML 100 ML IVCONT (10:55)
--- NOTE | 2023-01-12 11:05 | MHC.SHP ---
Pre-Procedural Eval Section A Date of Service: 01/12/23 The patient is an INPATIENT: No Changes since office visit: No Cold of Flu in the past 2 weeks, No New Medical Problems, No Changes in Medication and No Patient answered all questions The History & Physical has been completed within 30 days and I have reviewed it.: Yes Section B Chief Complaint: Abnormal findings on diagnostic imaging,anemia Allergies: Allergies Allergy/AdvReac Type Severity Reaction Status Date / Time No Known Allergies Allergy Verified 01/02/23 09:11 Plan I have reviewed the history and physical and performed a pertinent physical examination on my patient. No changes have occurred unless specified. Time Spent With Patient Time: Total time managing care of this patient today ____ minutes.
--- NOTE | 2023-01-12 12:15 | PM.OP ---
Brief Operative Note Date of Service: 01/12/23 Pre-op diagnosis: [facility] abnl xray hx polyps Post-op diagnosis: same Procedure: colonoscopy Surgeon: Chang Ojeda Anesthesia: MAC Was an Director Pharmacy Services used for this Procedure?: No Estimated blood loss (mL): 5 Pathology: other Condition: stable Disposition: PACU
[2023-01-12 12:21] VITALS: BP 88/45; PULSE 81; RESP 18; TEMP 36.4; O2SAT 94
[2023-01-12 12:25] VITALS: BP 98/50
[2023-01-12 12:36] VITALS: BP 141/67; PULSE 82; RESP 20; TEMP 36.6; O2SAT 100
--- NOTE | 2023-01-12 14:01 | OP_ITS ---
DATE OF SERVICE: 01/12/2023 SURGEON: Chang Ojeda MD INDICATIONS: Iron deficiency anemia, prior history of colon polyps, and abnormal imaging of the GI tract. PREOPERATIVE DIAGNOSIS: POSTOPERATIVE DIAGNOSIS: PROCEDURE PERFORMED: Colonoscopy to the neoterminal ileum with biopsy snare polypectomy and injection of Chary ink. ESTIMATED BLOOD LOSS: COMPLICATIONS: ANESTHESIA: Monitored anesthesia care. ASSISTANTS: SPECIMENS: DESCRIPTION OF PROCEDURE: A history and physical performed the risks and benefits of the procedure were explained to the patient. Informed consent was obtained. The patient was placed in the left lateral decubitus position. A digital rectal exam was performed and was found to be normal. The Olympus pediatric video colonoscope was introduced into the rectum and advanced to the ileocolonic anastomosis. Examination was performed. The scope was removed. She tolerated the procedure well and was taken to recovery in stable condition. FINDINGS: There was a patent ileocolonic anastomosis at between 40 and 50 cm from the anal verge. This showed a small polyp measuring less than 5 mm on the colonic aspect which was re-removed using a biopsy forceps. The anastomosis was widely patent with no evidence of recurrent adenocarcinoma. The scope was advanced an additional 40 cm into the proximal neoterminal ileum with no other lesions being identified. No small bowel anastomosis was identified. The remainder of the colonic mucosa showed multiple polyps. The largest at 35 cm was a stellate sessile polyp measuring approximately 2 cm. This was removed in piecemeal manner and injection of Chary ink above and below the lesion was done. Other polyps were located at 30, 25 and 20 cm. These were all removed with a snare. The quality of the prep was good. The rectum was carefully examined and there was no evidence of malignancy as possibly identified on the PET/CT scan. Retroflexed examination showed some hypertrophic anal papillae. IMPRESSION: Colon polyps. RECOMMENDATION: Follow up the biopsy results. MD BERT Mcfarlane/LOURDESL / [id number]
== END 2023-01-12 14:05 | disposition home or self-care (01) ==
PROVIDERS: PCP Family Medicine; Visit Provider Internal Medicine Gastroenterology
PROC: 0DJD8ZZ Inspection of Lower Intestinal Tract, Via Natural or Artificial Opening Endoscopic (ICD-10-PCS; CPT 45378; principal; 2023-01-12 10:50)
DX: D50.9 Iron deficiency anemia, unspecified (principal); Z85.038 Personal history of other malignant neoplasm of large intestine; Z86.010 Personal history of colon polyps; D12.5 Benign neoplasm of sigmoid colon; K63.5 Polyp of colon; Z90.49 Acquired absence of other specified parts of digestive tract; Z98.0 Intestinal bypass and anastomosis status; R63.4 Abnormal weight loss; Z68.23 Body mass index [BMI] 23.0-23.9, adult; I10 Essential (primary) hypertension; J45.909 Unspecified asthma, uncomplicated; R73.03 Prediabetes; Z79.899 Other long term (current) drug therapy; Z79.1 Long term (current) use of non-steroidal anti-inflammatories (NSAID); Z79.82 Long term (current) use of aspirin; R93.3 Abnormal findings on diagnostic imaging of other parts of digestive tract
CPT/HCPCS: 45385; 45380; 45381; 88305; J1610

== ENCOUNTER → 2023-01-18 09:22 | Outpatient (BNVA) | payer OTHER, SELFPAY | PROVIDERS: PCP Family Medicine; Referring Provider Internal Medicine Medical Oncology; Visit Provider Surgery | DX: C18.9 Malignant neoplasm of colon, unspecified (principal) | CPT/HCPCS: 99212 ==

== ENCOUNTER 2023-07-03 10:50 | Outpatient (REF) | payer OTHER, SELFPAY ==
--- NOTE | ~2023-07-03 | PE_ITS ---
EXAMINATION: Fluorine-18 FDG PET/CT Scan CLINICAL INDICATION: Subsequent treatment management. Carcinoma of the colon. Follow-up of abnormal PET scan. PROCEDURE: 60 minutes following the intravenous administration of 16.2 mCi of fluorine 18 FDG, images from the base of the skull to the mid thighs were obtained using a combined PET/CT scanner with CT scan based attenuation correction. No intravenous contrast was administered. Transverse, coronal, sagittal, and volume reconstruction projections were obtained. The patient's blood glucose as determined by a finger stick, was 98 mg/dl immediately prior to injection. The radiotracer was injected intravenously through the left antecubital superficial vein, without any complications. Total CT exam dose-length product 399.61 mGy-cm * These CT images were obtained using dose optimization techniques as appropriate, variously including the following: Automated exposure control * Adjustment of mA and/or kV according to patient size (this includes techniques or standardized protocols for targeted exams where dose is matched to indication/reason for exam; i.e. extremities or head) * Use of iterative reconstruction technique COMPARISON: Baseline PET/CT study done on 08/04/2015 and most recent prior PET CT study done on 12/26/2022. CT of the chest done on 12/14/2020. FINDINGS: METABOLIC REFERENCE: Mediastinal blood pool: 3.1(current). 4.2 12/26/2022. Liver : 3.7. (current). 5.0 12/26/2022. NECK AND VISUALIZED HEAD: Significant improved aeration is noted within the left maxillary sinus since the prior study dated 12/26/2022. No focal tracer avid disease, unchanged. THORAX: There is a sub-5 mm noncalcified lung nodule noted at left lung apex posteriorly (77/349). There is a subcentimeter noncalcified lung nodule noted at right lung apex posteromedially (81/349). Both these 2 nodules are not tracer avid, appear stable since prior study and appear more pronounced since the baseline study dated 08/04/2015. Also appear stable since prior CT of the chest done on 12/14/2020. Close follow-up imaging surveillance with diagnostic CT of the chest is recommended to ensure stability. Persistent stable cardiomegaly and trace amount of non-tracer avid pericardial effusion, unchanged since prior studies. ABDOMEN AND PELVIS: Postsurgical changes of left lobe of the liver resection without evidence of any local disease recurrence, unchanged since the most recent prior study done on 12/26/2022. No discrete focal liver or splenic or adrenal disease. Previously documented nonspecific focal tracer avidity at the ileocolic junction at lower abdomen to the right of the midline appear less pronounced (171/267). Previously documented nonspecific focal FDG avidity in the region of the proximal part of the sigmoid colon also appear less pronounced (186/267). Underlying colonic diverticulosis appear unchanged. Persistent intense focal tracer avidity in the region of the anal canal however, shows slight interval decrease in tracer avidity with SUV max of 5.8 (211/267), previously 7.0 (201/223). Interval development of mild FDG avidity is noted in the region of the distal esophagus associated with nonspecific mural thickening with SUV max of 5.5 (108/267), for which direct visualization and clinical correlation is recommended. MUSCULOSKELETAL: Degenerative spondylosis at C4-C5 and hemangioma at T11, appear unchanged since 12/26/2022. VASCULAR: Calcific atherosclerotic disease of the aorta and its branches including carotid and coronary arterial calcifications, appears stable. THE SITE(S) OF MOST INTENSE FDG AVIDITY AND SUV MAX: The region of the anal canal with SUV max of 5.8, previously 7.0. PET/PET CT fusion skull to thigh IMPRESSION: 1. Persistent tracer avidity is noted in the region of the anal canal with SUV max of 5.8 however, shows slight interval decrease in tracer avidity with previous SUV max of 7.0. Direct visualization, clinical correlation as appropriate is recommended. 2. Interval decrease in tracer avidity in the region of the sigmoid colon and in the region of the ileocolic junction/surgical anastomotic site since the prior study dated 12/26/2022. 3. Subcentimeter noncalcified bilateral apical lung nodules without any tracer avidity, appear unchanged since 12/26/2022 and anatomically appears stable since prior CT of the chest done on 12/14/2020. Close follow-up imaging surveillance with diagnostic CT of the chest is recommended to ensure stability. 4. Persistent stable cardiomegaly and trace amount of non-tracer avid pericardial effusion 5.Interval development of mild FDG avidity is noted in the region of the distal esophagus associated with nonspecific mural thickening with SUV max of 5.5 (108/267), for which direct visualization and clinical correlation is recommended.
== END 2023-07-03 10:51 | disposition home or self-care (01) ==
LOC: HO.PET 10:50
PROVIDERS: PCP Family Medicine; Visit Provider Internal Medicine Medical Oncology
DX: Z13.89 Encounter for screening for other disorder (principal)

== ENCOUNTER 2023-07-19 10:22 | Emergency (ER) | payer OTHER, SELFPAY ==
--- NOTE | ~2023-07-19 | CT_ITS ---
EXAMINATION: CT head/brain wo IV con, CT cervical spine wo IV con INDICATION INFORMATION: Head and neck trauma COMPARISON: None TECHNIQUE: Separate noncontrast CT examinations of the head and cervical spine were performed. Coronal and sagittal reformats were obtained at the acquisition workstation. This CT examination was performed using dose optimization techniques as appropriate, variously including the following: * Automated exposure control * Adjustment of mA and/or kV according to patient size (this includes techniques or standardized protocols for targeted exams where dose is matched to indication/reason for exam; i.e. extremities or head) * Use of iterative reconstruction technique DLP: 812 mGy-cm FINDINGS: HEAD: There is no evidence of acute intracranial hemorrhage or territorial infarction. Chance to white matter differentiation is well preserved. No abnormal mass effect or midline shift is seen. No extra-axial fluid collections are identified. No hydrocephalus. No significant volume loss. There is no abnormal attenuation within the brain parenchyma. The cerebellar tonsils are well positioned. No acute osseous or soft tissue abnormality. Visualized portions of the orbits are unremarkable. The mastoid air cells and visualized portions of the paranasal sinuses are well aerated. CERVICAL SPINE: No evidence of acute fracture or traumatic subluxation of the cervical spine. There is straightening of the normal cervical curvature with otherwise maintained sagittal alignment. There are multilevel degenerative changes with narrowing of C3-C4 and C4-C5 as well as with mild, grade 1 anterior listhesis of C3 over C4. The atlantoaxial and atlantooccipital articulations are intact. No prevertebral soft tissue swelling. There is no cervical lymphadenopathy. The visualized thyroid gland is unremarkable. The visualized lung apices are clear. CT/CT cervical spine wo IV con IMPRESSION: 1. No acute intracranial pathology. 2. No acute osseous abnormality within the cervical spine. 3. Degenerative changes as described above.
[2023-07-19 10:32] VITALS: BP 213/76; PULSE 84; RESP 16; TEMP 36.8; O2SAT 96; BMI 24.1
--- NOTE | 2023-07-19 10:53 | ED_ITS ---
HPI - Fall General Chief Complaint: Fall Stated Complaint: fell 07/15/ sent by PCP Time Seen by Provider: 07/19/23 10:45 Source: patient and family Mode of arrival: ambulatory Limitations: no limitations History of Present Illness HPI Narrative: 78 yo female with PMH of HTN, HLD, asthma, anemia hx of colon cancer s/p chemo and surgery back in recent weight loss though Dr. Lopez has been following and it looks like recent colonoscopy and PET scan were negative she comes in today with c/o feeling wobbly for a while many weeks so sometimes when she gets up she loses balance. She fell on Sunday hitting head after losing her balance - no LOC helped right up, no other injuries other than head has been at baseline but still slightly wobbly when walking but not unchanged. no n/v confusion or any other issues sent by PCP for CT scans MD complaint: fall Onset (ago): day(s) (6) Fall from: standing Fall witnessed: yes, by family Place fall occurred: home Loss of consciousness: none Prolonged down time: no Symptoms prior to fall: none Context: history of frequent falls Location of injury: head Severity: mild Quality: dull Associated symptoms (after fall): denies Related Data Home Medications Medication Instructions Recorded Confirmed aspirin 81 mg tablet,delayed 1 tab PO DAILY 08/10/20 01/18/23 release atorvastatin 10 mg tablet 1 tab PO DAILY 08/10/20 01/18/23 calcium citrate 200 mg (950 mg) 1 tab PO BID 08/10/20 01/18/23 tablet (Calcitrate) cholecalciferol (vitamin D3) 50 1 cap PO DAILY 08/10/20 01/18/23 mcg (2,000 unit) capsule (Vitamin D3) fluticasone propionate 115 2 puff inhalation BID 08/10/20 01/18/23 mcg-salmeterol 21 mcg/actuation HFA inhaler (Advair HFA) levothyroxine 75 mcg tablet 1 tab PO DAILY 08/10/20 01/18/23 losartan 50 mg-hydrochlorothiazide 1 tab PO DAILY 08/10/20 01/18/23 12.5 mg tablet omeprazole 40 mg capsule,delayed 1 cap PO BID 08/10/20 01/18/23 release zolpidem 5 mg tablet 1 tab PO BEDTIME PRN Insomnia 08/10/20 01/18/23 naproxen 250 mg tablet 250 mg PO DAILY PRN moderate pain 01/11/23 01/18/23 Previous Rx's Medication Instructions Recorded polyethylene glycol 3350 17 gram 17 g PO DAILY #30 ea 08/24/22 oral powder packet (Miralax) sennosides 8.6 mg tablet (Senokot) 8.6 mg PO BEDTIME #90 tabs 01/02/23 folic acid 1 mg tablet 1 tab PO DAILY #90 tabs 01/18/23 ferrous sulfate 325 mg (65 mg 325 mg PO BID #60 tabs 02/20/23 iron) tablet (Iron (ferrous sulfate)) Allergies Allergy/AdvReac Type Severity Reaction Status Date / Time No Known Allergies Allergy Verified 01/18/23 11:03 Review of Systems 2 Review of Systems: Constitutional : No Fever, No Chills, No Fatigue ENT/Mouth : No sore throat, No Rhinorrhea Eyes: No Eye Pain, No Swelling, No Redness Cardiovascular : No Chest Pain, No SOB, No Dyspnea on Exertion Respiratory : No Cough, No Sputum Gastrointestinal : No Nausea, No Vomiting, No Diarrhea, No abdominal Pain Genitourinary : No Dysuria, No Urinary Frequency, No Hematuria, Musculoskeletal : No joint pain, No Myalgias, No Joint Swelling Skin : No Skin Lesions, No rash Neuro : No Weakness, No Numbness, No Dizziness, positive Headache Psych : No Anxiety/Panic, No Depression Heme/Lymph: No Bruising, No Bleeding,No Lymphadenopathy Endocrine : No Polyuria, No Polydipsia All other systems reviewed and are negative PMFSH Past Medical History Attestation statement: The following information was validated with the patient. Source: old records reviewed Medical History FH: cholecystectomy Prediabetes Allergic rhinitis Depression Iron deficiency anemia Colon cancer Insomnia High cholesterol HTN (hypertension) Asthma Surgical History H/O resection of liver H/O right hemicolectomy H/O: hysterectomy H/O colonoscopy History of surgery of liver Family History Family History Other No family history of cancer Social History Social History Household Members: Spouse Housing: Apartment Are you a primary infant childcare provider to a significant other at home: No Do you presently have visiting nurse or other home services: Yes (every 3 months through insurance) Alcohol intake: never Patient Tobacco Use Status: Never used Tobacco Smoked in Last 30 Days: No Use of substances other than those prescribed or required for medical reasons: No Advance Directives: Yes Advance Directives on File: Yes Advance Directives Date on File: 02/04/22 service: No Current occupational status: disabled Physical Exam 2 Vital Signs: Vital Signs: Last Vital Signs Temp 98.3 F 07/19/23 10:32 Pulse 90 07/19/23 12:34 Resp 18 07/19/23 11:47 BP 137/78 07/19/23 12:34 Pulse Ox 100 07/19/23 11:47 O2 Del Method Room Air 07/19/23 11:47 BMI result Body Mass Index 24.1 Appearance: Alert. Oriented X3. No acute distress. Eyes: Pupils equal, round and reactive to light. ENT: Pharynx normal. contusion to R eyebrow and forehead Neck: Normal inspection. Neck supple. CVS: Normal heart rate and rhythm. Pulses normal. Respiratory: No respiratory distress. Breath sounds normal. Abdomen: Soft and nontender. Skin: Skin warm and dry. Normal skin color. Normal skin turgor. Extremities: No lower extremity edema. No calf ttp Neuro: Oriented X 3. No motor deficit. No sensory deficit. Medical Decision Making Medical Decision Making MDM Narrative: 78 yo female with PMH of HTN, HLD, asthma, anemia hx of colon cancer s/p chemo and surgery back in recent weight loss though Dr. Lopez has been following and it looks like recent colonoscopy and PET scan were negative at this time family reports she is chronically wobblly - has not had anemia or Cr checked recently per daughter. She denies CP/SOB. I am going to obtain CT head/cspine post fall and basic labs with EKG along with ortho VS. No other trauma to chest/extr/abdomen reported. Daughter notes mom being wobbly is chronic and not a new finding to suggest acute stroke. Differential Diagnosis Differential Diagnoses: The differential diagnosis associated with the presentation includes anemia, weakness, FTT, ICH, sprain strain Admission/Observation Consideration of admission/observation: Escalation of care including admission/observation considered at baseline, labs normal CT scans normal ortho VS lowest drop 130 Lab Data MDM Lab Attestation statement: I reviewed the patient's lab results. 07/19/23 11:20 07/19/23 11:20 Labs: Lab Results 07/19/23 Range/Units 11:20 WBC 6.5 (4.8-10.8) X10*3/uL RBC 4.26 (4.20-5.50) X10*6/uL Hgb 11.7 L (12.0-16.0) g/dl Hct 37.0 (37.0-47.0) % MCV 86.9 (80.0-98.0) fL MCH 27.5 (27.0-33.0) pg MCHC 31.6 (31.0-35.0) g/dl RDW 14.7 (11.0-16.0) % Plt Count 202 (160-400) X10*3/uL MPV 11.2 (9.4-12.3) fL Immature Gran % (Auto) 0.3 (0.0-0.4) % Neut % (Auto) 60.7 (45-73) % Lymph % (Auto) 27.6 (20-40) % [place] % (Auto) 8.6 (2-11) % Eos % (Auto) 2.0 (0-4) % Baso % (Auto) 0.8 (0-2) % Lymph # (Auto) 1.8 (1.2-4.9) X10*3/uL [place] # (Auto) 0.6 (0.1-1.2) X10*3/uL Eos # (Auto) 0.1 (0.0-0.4) X10*3/uL Baso # (Auto) 0.1 (0.0-0.2) X10*3/uL Abs Immat Gran (auto) 0.02 (0.00-0.03) X10*3/uL Absolute Neuts (auto) 4.0 (2.0-8.3) x10*3/uL Absolute Nucleated RBC 0.000 (0.0-0.012) X10*3/uL Nucleated RBC % (auto) 0.0 (0.0-0.2) /100WBC Sodium 141 (135-145) mmol/L Potassium 3.8 (3.3-5.1) mmol/L Chloride 106 (96-108) mmol/L Carbon Dioxide 24 (22-29) mmol/L Anion Gap 15 (12-20) BUN 13 (9-16) mg/dL Creatinine 0.69 (0.5-1.4) mg/dL Estim Creat Clear Calc 42.3 Estimated GFR > 60 Random Glucose 104 (60-115) mg/dL Calcium 9.6 (8.4-10.2) mg/dL Independent Interpretation I performed an independent interpretation of an: EKG and CT Scan (no trauma) Interpretation: Rate: 72 Rhythm: NSR Irwin: normal Normal P waves. Normal DIANA. Normal QRS complex. ST T wave : no GABRIELA, inverted T wave in aVL, V1 and V2 - only new inversion is in V2 qTC: normal prior studies: no acute ischemia The study has been interpreted contemporaneously by me. . Radiology Impression Discussion of test interpretation with radiology: I have reviewed the radiologist's reading. Independent Historian Clinical information obtained from an independent historian. History obtained from or confirmed by: Other (daughter) External Record Review External record reviewed: Inpatient record Discharge Plan Discharge Clinical Impression: Head injury Qualifiers: Encounter type: initial encounter Qualified Code(s): S09.90XA - Unspecified injury of head, initial encounter Patient Disposition: Home, Self-Care Instructions: Head Injury (ED) Additional Instructions: no anemia, normal kidney function, CT scans no trauma. stay hydrated, follow up with your doctor, return for worsening headaches, confusion, vomiting or any other concerns. your labs look good today and no drop in your hemoglobin sin anemia, funci?n renal normal, tomograf?as computarizadas sin traumatismos. mant?ngase hidratado, tray un seguimiento con sorto m?dico, regrese si los pamela de ana empeoran, confusi?n, v?mitos o cualquier otra inquietud. Tus an?lisis de laboratorio se tom kacey hoy y no hay ca?da en tu hemoglobina. Prescriptions: No Action folic acid 1 mg tablet 1 tab PO DAILY Qty: 90 4RF omeprazole 40 mg capsule,delayed release(DR/EC) 1 cap PO BID Advair HFA 115-21 mcg/actuation HFA aerosol inhaler 2 puff inhalation BID atorvastatin 10 mg tablet 1 tab PO DAILY aspirin 81 mg tablet,delayed release (DR/EC) 1 tab PO DAILY levothyroxine 75 mcg tablet 1 tab PO DAILY zolpidem 5 mg tablet 1 tab PO BEDTIME PRN (Reason: Insomnia) losartan-hydrochlorothiazide 50-12.5 mg tablet 1 tab PO DAILY calcium citrate [Calcitrate] 200 mg (950 mg) tablet 1 tab PO BID cholecalciferol (vitamin D3) [Vitamin D3] 50 mcg (2,000 unit) capsule 1 cap PO DAILY polyethylene glycol 3350 [Miralax] 17 gram Powder In Packet 17 g PO DAILY Qty: 30 6RF sennosides [Senokot] 8.6 mg Tablet 8.6 mg PO BEDTIME Qty: 90 3RF ferrous sulfate [Iron (ferrous sulfate)] 325 mg (65 mg iron) Tablet 325 mg PO BID Qty: 60 1RF naproxen 250 mg tablet 250 mg PO DAILY PRN (Reason: moderate pain) Print Language: Salvadorean
--- NOTE | 2023-07-19 11:07 | ECG_ITS ---
Test Reason : WEAKNESS Blood Pressure : / mmHG Vent. Rate : 072 BPM Atrial Rate : 072 BPM P-R Int : 146 ms QRS Dur : 070 ms QT Int : 392 ms P-R-T Axes : 064 048 074 degrees QTc Int : 429 ms Normal sinus rhythm Possible Left atrial enlargement Low voltage QRS Septal infarct (cited on or before 14-DEC-2020) Abnormal ECG When compared with ECG of 14-DEC-2020 21:17, Questionable change in initial forces of Septal leads Referred By: Lina Mendez Electronically Signed By:HUNTER FRANCIS
[2023-07-19 11:28] LABS: MANUAL DIFF FLAG NO
[2023-07-19 11:34] LABS: Basophils Absolute Auto 0.1 X10*3/uL (0.0-0.2); Basophils Percent Auto 0.8 % (0-2); Eosinophils Absolute Auto 0.1 X10*3/uL (0.0-0.4); Hemoglobin 11.7 g/dl (12.0-16.0); Imm Gran Abs Auto 0.02 X10*3/uL (0.00-0.03); Imm Gran Pct Auto 0.3 % (0.0-0.4); Lymphocytes Absolute Auto 1.8 X10*3/uL (1.2-4.9); Lymphocytes Percent Auto 27.6 % (20-40); Mean Corpuscular HGB Conc 31.6 g/dl (31.0-35.0); Mean Corpuscular Hemoglobin 27.5 pg (27.0-33.0); Mean Corpuscular Volume 86.9 fL (80.0-98.0); Mean Platelet Volume 11.2 fL (9.4-12.3); Monocytes Absolute Auto 0.6 X10*3/uL (0.1-1.2); Monocytes Percent Auto 8.6 % (2-11); Neutrophils Percent Auto 60.7 % (45-73); Platelet Count 202 X10*3/uL (160-400); Red Blood Count 4.26 X10*6/uL (4.20-5.50); Red Cell Distribution Width 14.7 % (11.0-16.0); White Blood Count 6.5 X10*3/uL (4.8-10.8)
[2023-07-19 11:47] VITALS: BP 181/81; PULSE 75; RESP 18; O2SAT 100
[2023-07-19 11:48] LABS: Anion Gap 15 (12-20); Blood Urea Nitrogen 13 mg/dL (9-16); Calcium 9.6 mg/dL (8.4-10.2); Carbon Dioxide 24 mmol/L (22-29); Chloride 106 mmol/L (96-108); Creatinine Clr Calc Pharmacy 42.3; Estimated Glomerular Filt Rate > 60; Glucose Random 104 mg/dL (60-115); Potassium 3.8 mmol/L (3.3-5.1); Sodium 141 mmol/L (135-145)
--- NOTE | 2023-07-19 12:08 | PC.NURSE ---
pt a&ox3. respirations even and unlabored. pt reports having a fall on sunday, positive head strike, denies LOC and blood thinners. pt reports she stood up with her cane and fell forward onto her head. pt has visible bruising on the right sided forehead above the right eye. pt nuero assessment positive, pt able to follow commands. pt normal sinus on tele between 78-80.
[2023-07-19 12:32] VITALS: BP 165/83; BP 175/79; PULSE 78; PULSE 82
[2023-07-19 12:34] VITALS: BP 137/78; PULSE 90
[2023-07-19 14:57] VITALS: BP 164/68; PULSE 89; RESP 18
== END 2023-07-19 14:58 | disposition home or self-care (01) ==
PROVIDERS: Emergency Provider Emergency Medicine; PCP Family Medicine
DX: S09.90XA Unspecified injury of head, initial encounter (principal); W19.XXXA Unspecified fall, initial encounter; R26.81 Unsteadiness on feet; R29.6 Repeated falls; Z91.81 History of falling; E11.9 Type 2 diabetes mellitus without complications; I10 Essential (primary) hypertension; E78.00 Pure hypercholesterolemia, unspecified; Y99.9 Unspecified external cause status; Y93.9 Activity, unspecified; Y92.9 Unspecified place or not applicable; Z85.038 Personal history of other malignant neoplasm of large intestine; Z79.82 Long term (current) use of aspirin; Z79.899 Other long term (current) drug therapy
CPT/HCPCS: 36415; 70450; 72125; 80048; 85025; 93005; 99284

== ENCOUNTER 2023-08-01 12:09 | Outpatient (REF) | payer OTHER, SELFPAY | END 2023-08-01 12:10 | disposition home or self-care (01) | LOC: HO.HHCL 12:09 | PROVIDERS: Visit Provider Registered Nurse | DX: E03.8 Other specified hypothyroidism (principal) | CPT/HCPCS: 36415; 84443 ==

== ENCOUNTER → 2023-09-28 13:15 | Outpatient (BNV) | payer OTHER, SELFPAY | PROVIDERS: PCP Registered Nurse; Visit Provider Radiology Diagnostic Radiology | DX: Z12.31 Encounter for screening mammogram for malignant neoplasm of breast (principal) | CPT/HCPCS: 77063; 77067 ==

== ENCOUNTER 2023-09-28 14:04 | Outpatient (REF) | payer OTHER, SELFPAY ==
--- NOTE | ~2023-09-28 | MM_ITS ---
EXAMINATION: BONE DENSITOMETRY CLINICAL INDICATION: Osteoporosis. COMPARISON: This is the patient's baseline examination. TECHNIQUE: Using a Numerous DXA System (software version: 13.1) manufactured by [employer], dual-energy x-ray absorptiometry was performed of the lumbar spine and left hip. The images are of good technical quality. Summary results are attached. FINDINGS: LEFT FEMUR, NECK: BMD 0.499 g/cm2, Z-score -1.5, T-score -3.9, osteoporosis. LEFT FEMUR, TOTAL: BMD 0.629 g/cm2, Z-score -0.7, T-score -3.0, osteoporosis. AP SPINE L1-L4: BMD 0.713 g/cm2, Z-score -1.7, T-score -3.9, osteoporosis. IDENTIFIED RISK FACTORS: Early menopause, secondary osteoporosis, hysterectomy. HISTORY OF FRACTURE: None listed. MEDICATIONS: Calcium supplements or multivitamin, vitamin D. MM/XR DEXA axial skeleton IMPRESSION: 1. DIAGNOSIS: Osteoporosis based on the lowest T-score value of -3.9 in the femoral neck and lumbar spine applying World Health Organization criteria. 2. 10-YEAR FRACTURE RISK PREDICTION, FRAX: According to the guidelines, FRAX calculation should only be performed on patients in the osteopenia bone density category. Therefore, FRAX was not performed on this patient. 3. Treatment Recommendations: NOF guidelines recommend consideration for treatment in postmenopausal women and men age 50 and older presenting with the following: -A hip or vertebral (clinical or morphometric) fracture. -T-score less than or equal to -2.5 at the femoral neck or spine after appropriate evaluation to exclude secondary causes. -Low bone mass at the hip or spine and a 10-year fracture probability by FRAX of greater than or equal to 3% for hip fracture or greater than or equal to 20% for major osteoporotic fracture based on the [place] adapted WHO algorithm. 4. Other Recommendations: All treatment decisions require clinical judgment and consideration of individual patient factors, including patient preferences, comorbidities, previous drug use, risk factors not captured in the FRAX model (e.g. frailty, falls, vitamin D deficiency, increased bone turnover, interval significant decline in bone density) and possible under or overestimation of fracture risk by FRAX. Additional medical evaluation for secondary cause of low bone mineral density may be appropriate. FUTURE SCAN RECOMMENDATION: People with diagnosed cases of osteoporosis or at high risk for fracture should have regular bone mineral density tests. For patients eligible for Medicare, routine testing is allowed once every 2 years. The testing frequency can be increased to one year for patients who have rapidly progressing disease, those who are receiving or discontinuing medical therapy to restore bone mass, or have additional risk factors.
== END 2023-09-28 14:05 | disposition home or self-care (01) ==
LOC: HO.MAMMO 14:04
PROVIDERS: PCP Registered Nurse; Visit Provider Registered Nurse
DX: Z12.31 Encounter for screening mammogram for malignant neoplasm of breast (principal); Z13.820 Encounter for screening for osteoporosis; M81.8 Other osteoporosis without current pathological fracture; Z78.0 Asymptomatic menopausal state
CPT/HCPCS: 77063; 77067; 77080

== ENCOUNTER 2023-11-28 21:04 | Emergency (ER) | payer OTHER, SELFPAY ==
--- NOTE | ~2023-11-28 | XR_ITS ---
EXAMINATION: XR CHEST CLINICAL INFORMATION: Cough. COMPARISON: Most recent CT chest dated 09/21/2022. TECHNIQUE: 2 views of the chest were obtained. FINDINGS: The lungs are clear. The cardiomediastinal silhouette is normal in size. There is no pleural effusion or pneumothorax. No acute osseous abnormality. XR/XR chest 2V IMPRESSION: No acute cardiopulmonary findings.
[2023-11-28 21:30] VITALS: BP 167/82; PULSE 84; RESP 18; TEMP 37; O2SAT 98; BMI 26.9
[2023-11-28 22:13] LABS: IDNOW Serial# 08D9AD1C; IDNOW Serial# 152EDE1D; Influenza A Negative (Negative); Influenza B2 Negative (Negative)
[2023-11-28 22:14] LABS: COVID-19 Test Negative (Negative)
[2023-11-29 00:45] VITALS: BP 149/65; PULSE 80; RESP 20; TEMP 36.8; O2SAT 100
--- NOTE | 2023-11-29 01:31 | ED_ITS ---
HPI - General Adult General Chief complaint: Upper Respiratory Symptoms Stated complaint: cough, SOB Time Seen by Provider: 11/29/23 01:19 History of Present Illness HPI narrative: The patient is an 78-year-old woman who presents with 3-4 days of coughing, runny nose, a sense of congestion, and sore throat. She says her symptoms are worse at night. No fever. She says that the coughing is worse at night and interferes with sleeping. No nausea, vomiting, diarrhea. No significant chest pain or shortness of breath. Related Data Home Medications Medication Instructions Recorded Confirmed aspirin 81 mg tablet,delayed 1 tab PO DAILY 08/10/20 07/20/23 release atorvastatin 10 mg tablet 1 tab PO DAILY 08/10/20 07/20/23 calcium citrate 200 mg (950 mg) 1 tab PO BID 08/10/20 07/20/23 tablet (Calcitrate) cholecalciferol (vitamin D3) 50 1 cap PO DAILY 08/10/20 07/20/23 mcg (2,000 unit) capsule (Vitamin D3) fluticasone propionate 115 2 puff inhalation BID 08/10/20 07/20/23 mcg-salmeterol 21 mcg/actuation HFA inhaler (Advair HFA) levothyroxine 75 mcg tablet 1 tab PO DAILY 08/10/20 07/20/23 losartan 50 mg-hydrochlorothiazide 1 tab PO DAILY 08/10/20 07/20/23 12.5 mg tablet omeprazole 40 mg capsule,delayed 1 cap PO BID 08/10/20 07/20/23 release zolpidem 5 mg tablet 1 tab PO BEDTIME PRN Insomnia 08/10/20 07/20/23 naproxen 250 mg tablet 250 mg PO DAILY PRN moderate pain 01/11/23 07/20/23 Previous Rx's Medication Instructions Recorded ferrous sulfate 325 mg (65 mg 325 mg PO BID #60 tabs 02/20/23 iron) tablet (Iron (ferrous sulfate)) ferrous sulfate 325 mg (65 mg 325 mg PO BID #60 tabs 08/31/23 iron) tablet albuterol sulfate 90 mcg/actuation 2 puff inhalation Q4-6H PRN cough 11/29/23 aerosol inhaler #8.5 grams Allergies Allergy/AdvReac Type Severity Reaction Status Date / Time No Known Allergies Allergy Verified 11/28/23 21:30 Review of Systems Review of Systems: Yes all other systems are reviewed and are negative [facility] Past Medical History Medical History FH: cholecystectomy Prediabetes Allergic rhinitis Depression Iron deficiency anemia Colon cancer Insomnia High cholesterol HTN (hypertension) Asthma Surgical History H/O resection of liver H/O right hemicolectomy H/O: hysterectomy H/O colonoscopy History of surgery of liver Family History Family History Other No family history of cancer Social History Social History Household Members: Spouse Housing: Apartment Are you a primary resident care coordinator to a significant other at home: No Do you presently have visiting nurse or other home services: Yes (every 3 months through insurance) Alcohol intake: never Patient Tobacco Use Status: Never used Tobacco Advance Directives: Yes Advance Directives on File: Yes Advance Directives Date on File: 02/04/22 service: No Current occupational status: disabled Physical Exam ED Vital Signs: Vital Signs - 24 hr 11/28/23 21:30 11/29/23 00:45 Temperature 98.6 F 98.2 F Pulse Rate 84 80 Respiratory Rate 18 20 Blood Pressure 167/82 H 149/65 H Pulse Oximetry 98 100 Oxygen Delivery Method Room Air Room Air BMI result Body Mass Index 26.9 Const Other: The patient is awake, alert, pleasant, cooperative she does not appear in any distress or discomfort. She was not coughing significantly while I was in the room. HENMT Other: The appearance of the face is unremarkable. The posterior pharynx looks entirely normal. No erythema or exudate. Mucous membranes are moist. Eyes Other: Pupils are round equal, conjunctivae are clear, extraocular movements intact Neck Other: The patient reports tenderness to both anterior cervical chains but I do not appreciate any discrete adenopathy. There is no JVD. Resp Other: No increased work of breathing. Breath sounds are clear bilaterally. No crackles or wheezes Cardio Rate: regular rate Rhythm: regular rhythm Heart sounds: S1 normal heart sound present and S2 normal heart sound present Skin Other: Skin is dry and unremarkable. Neuro Other: The patient is awake, alert, pleasant, cheerful, nontoxic. Extrem Other: No peripheral edema. Medical Decision Making Medical Decision Making MDM Narrative: The patient presents with 3-4 days of what sounds like viral respiratory symptoms. She is COVID negative and influenza negative. Chest x-ray is negative. I suspect the patient has some kind of cold-like syndrome. Her presentation does not suggest a more concerning process such as an acute coronary syndrome or congestive heart failure. The patient seems most concerned about her cough which interferes with sleeping. She requested a medication for cough. She says she has a history of asthma but does not have an albuterol inhaler. She describes having some kind of disc medication at home. Although she was not wheezing at the moment I will prescribe an albuterol inhaler in case it helps with the coughing. She is also advised to use honey to see if it helps with the cough. She should use acetaminophen for her discomfort. She should follow up with the regular doctor's office if not improving or return to the ER if worse. Lab Data Labs: Lab Results 11/28/23 Range/Units 21:50 COVID-19 ([facility]) Negative (Negative) COVID-19 Clin Com See Note Influenza Type A ([facility]OV[facility]) Negative (Negative) Influenza Type B ([facility]OV[facility]) Negative (Negative) Influenza A & B Note See Note Discharge Plan Discharge Clinical Impression: Viral respiratory illness, Cough Patient Disposition: Home, Self-Care Instructions: Cold Symptoms (ED) Additional Instructions: I think you have a cold (un resfriado) with a bad cough. I do not think antibiotics would likely be helpful. Treating a cough is difficult. Most medications sold as cough medications are actually not helpful. Albuterol can be helpful for cough. You may take 2 puffs every 4-6 hours as needed. Honey can also be helpful for a cough. You may take a spoonful of honey every couple of hours to see if that helps. Drink lot of fluids. Please follow-up with your regular doctor if not improving or return to the emergency room if significantly worse, especially if you develop a fever. Prescriptions: New albuterol sulfate 90 mcg/actuation HFA aerosol inhaler 2 puff inhalation Q4-6H PRN (Reason: cough) Qty: 8.5 0RF No Action ferrous sulfate 325 mg (65 mg iron) Tablet 325 mg PO BID Qty: 60 6RF omeprazole 40 mg capsule,delayed release(DR/EC) 1 cap PO BID fluticasone propion-salmeterol [Advair HFA] 115-21 mcg/actuation HFA aerosol inhaler 2 puff inhalation BID atorvastatin 10 mg tablet 1 tab PO DAILY aspirin 81 mg tablet,delayed release (DR/EC) 1 tab PO DAILY levothyroxine 75 mcg tablet 1 tab PO DAILY zolpidem 5 mg tablet 1 tab PO BEDTIME PRN (Reason: Insomnia) losartan-hydrochlorothiazide 50-12.5 mg tablet 1 tab PO DAILY calcium citrate [Calcitrate] 200 mg (950 mg) tablet 1 tab PO BID cholecalciferol (vitamin D3) [Vitamin D3] 50 mcg (2,000 unit) capsule 1 cap PO DAILY ferrous sulfate [Iron (ferrous sulfate)] 325 mg (65 mg iron) Tablet 325 mg PO BID Qty: 60 1RF naproxen 250 mg tablet 250 mg PO DAILY PRN (Reason: moderate pain) Referrals: [facility] [Provider Group] (Cold and cough symptoms)
[2023-11-29] MEDS: Albuterol Sulfate 90 MCG 8 GM INHALER 2 PUFF INHALE (01:53)
[2023-11-29] MEDS: Acetaminophen 325 MG TABLET 975 MG PO (01:53)
== END 2023-11-29 01:58 | disposition home or self-care (01) ==
PROVIDERS: Emergency Provider Emergency Medicine
DX: B34.9 Viral infection, unspecified (principal); R05.9 Cough, unspecified; Z11.52 Encounter for screening for COVID-19
CPT/HCPCS: 71046; 87502; 87635; 99283; 99284

== ENCOUNTER 2024-02-14 11:41 | Outpatient (REF) | payer OTHER, SELFPAY ==
--- NOTE | ~2024-02-14 | CT_ITS ---
EXAMINATION: CT ABDOMEN AND PELVIS WITH CONTRAST CLINICAL INFORMATION: Restaging colon cancer. COMPARISON: CT examinations of the abdomen and pelvis, most recently 09/26/2022; PET/CT dated 07/03/2023; MRI abdomen dated 06/23/2015. TECHNIQUE: Multidetector volumetric images were obtained from the superior aspect of the liver through the pubic symphysis following administration 85 mL of Omnipaque 350 intravenous contrast. Sagittal and coronal reformatted images were obtained on the technologist's workstation. Oral contrast: No This CT examination was performed using dose optimization techniques as appropriate, variously including the following: *Automated exposure control *Adjustment of mA and/or kV according to patient size (this includes techniques or standardized protocols for targeted exams where dose is matched to indication/reason for exam; i.e. extremities or head) *Use of iterative reconstruction technique DLP: 226 mGy-cm FINDINGS: LUNG BASES: The visualized lung bases are unremarkable. LIVER, GALLBLADDER, AND BILIARY TREE: There has been a prior left hepatectomy. Centrally within the right hepatic lobe (6:143), a new 1.1 cm mildly complex cyst with septation is questioned. This shows a postcontrast Hounsfield value of 120.2 units. No biliary ductal dilatation is present. The gallbladder is surgically absent. A small amount of biliary sludge is again suspected within the common bile duct (3:22). PANCREAS: Unremarkable. SPLEEN: Unremarkable. ADRENAL GLANDS: Unremarkable. KIDNEYS AND URETERS: The kidneys are normal in size, shape, and attenuation. No hydronephrosis, hydroureter, or calculi seen. There are benign, simple appearing bilateral renal cysts again noted, for which no imaging follow-up is recommended. No perinephric stranding. BLADDER: Unremarkable. GASTROINTESTINAL TRACT: There has been a prior right hemicolectomy, with patent ileocolic anastomosis. There is mild diverticulosis, without acute diverticulitis. No obstruction, free intraperitoneal air or abscess is seen. There is no focal bowel wall thickening. ABDOMINAL WALL: No significant hernia is appreciated. LYMPH NODES: Normal. VASCULAR: There is mild aortoiliac atherosclerotic calcification. No abdominal aortic aneurysm or dissection is seen. PELVIC VISCERA: Surgically absent. No pelvic mass, free fluid or lymphadenopathy is seen. OSSEOUS STRUCTURES: There is vacuum disc phenomenon at L2-L3 and L5-S1. A hemangioma is noted of the T11 vertebral body, with corduroy appearance. No acute or aggressive osseous finding is noted. CT/CT abdomen pelvis w IV con IMPRESSION: 1. There has been a prior left hepatectomy. No residual or recurrent lesion is noted at the surgical margin. 2. Centrally within the right hepatic lobe, a 1.1 cm lesion is questioned, cystic versus solid. Recommend further evaluation with abdominal ultrasound or MRI. 3. There has been a prior right hemicolectomy. There is a patent ileocolic anastomosis. No focal bowel wall thickening is seen. 4. A small amount of biliary sludge is again suspected within the common bile duct. No intrahepatic biliary ductal dilatation is seen. 5. There is mild diverticulosis, without acute diverticulitis. 6. There is degenerative disc disease at L2-L3 and L5-S1. No aggressive osseous lesion is noted.
[2024-02-14] MEDS: iohexoL 350 MG/ML 100 ML INFUS..BTL IV (14:32)
[2024-02-14] MEDS: Barium Sulfate Oral (Berry) 450 ML ORAL.SUSP 900 ML PO (14:32)
== END 2024-02-14 11:42 | disposition home or self-care (01) ==
LOC: HO.CT 11:41
PROVIDERS: Visit Provider Internal Medicine Medical Oncology
DX: C18.9 Malignant neoplasm of colon, unspecified (principal)
CPT/HCPCS: 74177; Q9967

== ENCOUNTER 2024-04-30 16:52 | Inpatient (IN) | payer OTHER, SELFPAY ==
--- NOTE | ~2024-04-30 | CT_ITS ---
EXAMINATION: CT ABDOMEN AND PELVIS WITHOUT CONTRAST CLINICAL INFORMATION: pain. COMPARISON: 02/14/2024. TECHNIQUE: Multidetector volumetric imaging was performed from the superior aspect of the liver through the pubic symphysis without contrast per request. Sagittal and coronal reformatted images were obtained on the technologist workstation. This CT examination was performed using dose optimization techniques as appropriate, variously including the following: *Automated exposure control *Adjustment of mA and/or kV according to patient size (this includes techniques or standardized protocols for targeted exams where dose is matched to indication/reason for exam; i.e. extremities or head) *Use of iterative reconstruction technique DLP: 367 mGy-cm. FINDINGS: LUNG BASES: The visualized lung bases are unremarkable. LIVER, GALLBLADDER, BILIARY TREE: Patient is status post left hepatectomy with expected postoperative surgical changes. The common bile duct is dilated containing calcified stones distally. The common bile duct measures up to 1.7 cm in maximal diameter. The gallbladder is surgically absent PANCREAS: Unremarkable. SPLEEN: Unremarkable. ADRENAL GLANDS: Unremarkable. KIDNEYS AND URETERS: The kidneys are normal in size, shape, and attenuation. Large simple appearing exophytic 8 cm cyst in the lower pole of the left kidney. No hydronephrosis, hydroureter, or perinephric stranding. No calculi. BLADDER: Unremarkable. GASTROINTESTINAL TRACT: Colon is redundant with scattered colonic diverticulosis but no colonic wall thickening or pericolonic inflammatory change to suggest diverticulitis. Anastomotic staple line in the right upper quadrant. No obstructive changes to the small bowel extending up to the anastomosis. Additional nonobstructing anastomotic staple line in the midline small bowel. ABDOMINAL WALL: Stable postoperative changes. No evidence for herniation LYMPHOVASCULAR STRUCTURES: Vascular calcification within the aorta iliac system. PELVIC VISCERA: Surgically absent OSSEUS STRUCTURES: Degenerative changes in the spine CT/CT abdomen pelvis wo IV con IMPRESSION: Chronic appearing and postoperative changes similar to the prior study. Again the common bile duct is dilated containing debris and likely distal stones.
[2024-04-30 16:56] VITALS: BP 154/69; PULSE 84; RESP 18; TEMP 36.7; O2SAT 100; BMI 25.8
--- NOTE | 2024-04-30 16:56 | ED_ITS ---
HPI - General Adult General Chief complaint: Dizziness Stated complaint: dizziness Time Seen by Provider: 04/30/24 19:05 Source: patient, family, RN notes reviewed and old records reviewed Mode of arrival: ambulatory Limitations: language barrier (Patient and family declining interpreting services) History of Present Illness ED Provider: Mignon HPI narrative: 78-year-old female with past medical history significant for colon cancer, hypothyroidism, hypertension, GERD, hyperlipidemia presents for evaluation of dizziness and weakness. Patient reports not feeling well for the last 5 days. She states that she has had decreased appetite. She is continued to drink lots of water despite not eating She complains of some mild right sided abdominal pain as well She has not had any recent medication changes Denies any burning with urination Denies any fevers, chills, headache No other complaints or concerns at this time Related Data Home Medications ?Medication ?Instructions ?Recorded ?Confirmed aspirin 81 mg tablet,delayed 1 tab PO DAILY 08/10/20 01/18/24 release atorvastatin 10 mg tablet 1 tab PO DAILY 08/10/20 01/18/24 calcium citrate 200 mg (950 mg) 1 tab PO BID 08/10/20 01/18/24 tablet (Calcitrate) cholecalciferol (vitamin D3) 50 1 cap PO DAILY 08/10/20 01/18/24 mcg (2,000 unit) capsule (Vitamin D3) fluticasone propionate 115 2 puff inhalation BID 08/10/20 01/18/24 mcg-salmeterol 21 mcg/actuation HFA inhaler (Advair HFA) levothyroxine 75 mcg tablet 1 tab PO DAILY 08/10/20 01/18/24 losartan 50 mg-hydrochlorothiazide 1 tab PO DAILY 08/10/20 01/18/24 12.5 mg tablet omeprazole 40 mg capsule,delayed 1 cap PO BID 08/10/20 01/18/24 release zolpidem 5 mg tablet 1 tab PO BEDTIME PRN Insomnia 08/10/20 01/18/24 naproxen 250 mg tablet 250 mg PO DAILY PRN moderate pain 01/11/23 01/18/24 Previous Rx's ?Medication ?Instructions ?Recorded ferrous sulfate 325 mg (65 mg 325 mg PO BID #60 tabs 02/20/23 iron) tablet (Iron (ferrous sulfate)) ferrous sulfate 325 mg (65 mg 325 mg PO BID #60 tabs 08/31/23 iron) tablet albuterol sulfate 90 mcg/actuation 2 puff inhalation Q4-6H PRN cough 11/29/23 aerosol inhaler #8.5 grams Allergies Allergy/AdvReac Type Severity Reaction Status Date / Time No Known Allergies Allergy Verified 04/30/24 17:00 Review of Systems 2 Constitutional: Constitutional: Denies body ache(s), Denies chills, Denies fever(s), Denies frequent falls, Reports lethargy, Reports poor appetite and Reports weakness ENT: Denies sore throat Cardiovascular: Cardiovascular: Denies chest pain and Denies dyspnea Respiratory: Respiratory: Denies cough and Denies dyspnea Gastrointestinal: Gastrointestinal: Reports abdominal pain, Denies nausea and Denies vomiting Genitourinary: Genitourinary: Denies dysuria Musculoskeletal: Musculoskeletal: Denies back pain Integumentary/Breasts: Skin/Breast: Denies rash Neurologic: Denies frequent falls and Reports weakness PMFSH Past Medical History Medical History FH: cholecystectomy Prediabetes Allergic rhinitis Depression Iron deficiency anemia Colon cancer Insomnia High cholesterol HTN (hypertension) Asthma Surgical History H/O resection of liver H/O right hemicolectomy H/O: hysterectomy H/O colonoscopy History of surgery of liver Family History Family History Other No family history of cancer Social History Social History Household Members: Spouse Housing: Apartment Are you a primary health care law specialist to a significant other at home: No Do you presently have visiting nurse or other home services: Yes (every 3 months through insurance) Alcohol intake: never Patient Tobacco Use Status: Never used Tobacco Smoked in Last 30 Days: No Advance Directives: Yes Advance Directives on File: Yes Advance Directives Date on File: 02/04/22 Do you have a plan to hurt others: No Plan service: No Current occupational status: disabled Physical Exam ED Vital Signs: Vital Signs - 24 hr 04/30/24 16:56 04/30/24 19:07 04/30/24 19:08 Temperature 98.1 F 98.3 F Pulse Rate 84 73 73 Respiratory Rate 18 6 L 15 Blood Pressure 154/69 H 201/71 H 201/78 H Pulse Oximetry 100 91 L 91 L Oxygen Delivery Method Room Air Room Air Room Air 04/30/24 19:27 04/30/24 22:00 Temperature 98.4 F 98.4 F Pulse Rate 76 71 Respiratory Rate 13 18 Blood Pressure 196/86 H 174/73 H Pulse Oximetry 100 96 Oxygen Delivery Method Room Air Room Air BMI result Body Mass Index 25.8 Const General: healthy appearing, comfortable, no acute distress, alert and awake Nutritional Appearance: well nourished Orientation/consciousness: patient oriented x3 HENMT Head: Yes normocephalic and Yes atraumatic Eyes Eyelids: Yes eyelids normal Conjunctivae: conjunctivae normal Sclerae: sclerae normal Corneas: corneas normal Pupils: Equal, round and reactive pupils present EOM: EOMs intact bilaterally Neck Neck: Yes full ROM Resp Effort & Inspection: normal respiratory effort, able to speak in complete sentences, no audible wheezes and not labored Auscultation: clear to auscultation bilaterally Cardio Rate: regular rate Rhythm: regular rhythm GI Inspection: No distended Palpation (GI): Soft to palpation, not firm, nontender, no guarding and not rigid Skin General skin exam: no rashes or lesions noted and elasticity normal Neuro General: patient oriented x3 Cranial nerves: Yes CN's II-XII intact bilaterally, Yes Equal, round and reactive pupils present and Yes Bilaterally intact EOM present Cognition (Neuro): normal cognition Extrem Other: Moving all extremities well without any obvious deformities Course Course Course Narrative: This is an RME: Additional HPI, ROS, PE not included below will be deferred to primary provider. RME assessment and note performed by: Mehreen Lenz PA-C This is a [id number]-female, with ahx of prediabetes, rhinitis, HTN, HLD, and asthma, who presents to the ER with complaints of dizziness and nausea x 2 days. No headaches. No vision problems. Symptoms are constant. No pronator drift, neurologically intact Plan: Labs, EKG Reevaluation(s) Reevaluation #1: Awaiting page from Nephrology Time: 21:26 Reevaluation #2: Discussed with Dr. Boykin who recommends repeating a BMP right now. He would like to be reconsulted with the BMP results Time: 21:57 Reevaluation #3: Repeat sodium is still 111. Discussed with nephrology again who recommends normal saline at 75 cc/hour, potassium 40 mEq p.o. orally for 2 doses. Will discuss with the chain machine operator Time: 22:49 Medications Administered Discontinued Medications Generic Name Dose Route Start Last Admin Trade Name Gabriela PRN Reason Stop Dose Admin Potassium Chloride 40 meq 04/30/24 21:48 04/30/24 22:22 Potassium Chloride Er 20 Meq Tab.Er.Prt PO 04/30/24 21:49 40 meq ONCE ONE Administration Medical Decision Making Medical Decision Making [facility] Narrative: 78-year-old female presents for evaluation of dizziness, abdominal pain and weakness. Plan for a CT scan of the abdomen pelvis given the flank pain/abdominal pain. The patient was found to have a sodium of 111 potassium 2.6. I added on urine osmolality, urine creatinine, urine sodium and urine potassium as well as serum osmolality. Patient replaced any fluid restriction, will get nephrology consultation prior to administering a fluids. The patient has not had any recent medication changes that should contribute to SIADH patient does have a history of cancer. It does appear the patient is on losartan with hydrochlorothiazide but no other diuretics, I do not suspect this medication alone would cause her severe hyponatremia. The patient does drink a substantial amount of water daily per the patient's daughter Differential Diagnosis Differential Diagnoses: The differential diagnosis associated with the presentation includes SIADH Hyponatremia Water intoxication Hypovolemia Admission/Observation Consideration of admission/observation: Escalation of care including admission/observation considered Consult Healthcare Provider Management of the patient was discussed with: Chamber Magistrate (nephrology) Lab Data [facility] Lab Attestation statement: I reviewed the patient's lab results. No leukocytosis. No significant anemia. Normal platelet count. The patient has significant electrolyte abnormalities with a sodium of 111, potassium 2.6 and a chloride of 72. 04/30/24 17:31 04/30/24 22:01 Labs: Lab Results 04/30/24 04/30/24 04/30/24 Range/Units 17:31 19:24 19:38 WBC 10.5 (4.8-10.8) X10*3/uL RBC 4.59 (4.20-5.50) X10*6/uL Hgb 12.1 (12.0-16.0) g/dl Hct 34.1 L (37.0-47.0) % MCV 74.3 L (80.0-98.0) fL MCH 26.4 L (27.0-33.0) pg MCHC 35.5 H (31.0-35.0) g/dl RDW 13.8 (11.0-16.0) % Plt Count 229 (160-400) X10*3/uL MPV 10.3 (9.4-12.3) fL Immature Gran % (Auto) 0.7 H (0.0-0.4) % Neut % (Auto) 72.1 (45-73) % Lymph % (Auto) 19.3 L (20-40) % [place] % (Auto) 7.5 (2-11) % Eos % (Auto) 0.1 (0-4) % Baso % (Auto) 0.3 (0-2) % Lymph # (Auto) 2.0 (1.2-4.9) X10*3/uL [place] # (Auto) 0.8 (0.1-1.2) X10*3/uL Eos # (Auto) 0.0 (0.0-0.4) X10*3/uL Baso # (Auto) 0.0 (0.0-0.2) X10*3/uL Abs Immat Gran (auto) 0.07 H (0.00-0.03) X10*3/uL Absolute Neuts (auto) 7.6 (2.0-8.3) x10*3/uL Absolute Nucleated RBC 0.000 (0.0-0.012) X10*3/uL Nucleated RBC % (auto) 0.0 (0.0-0.2) /100WBC Sodium 111 L* D (135-145) mmol/L Potassium 2.6 L* D (3.3-5.1) mmol/L Chloride 72 L D (96-108) mmol/L Carbon Dioxide 26 (22-29) mmol/L Anion Gap 16 (12-20) BUN 9 (9-16) mg/dL Creatinine 0.65 (0.5-1.4) mg/dL Estim Creat Clear Calc 46.4 Estimated GFR > 60 Random Glucose 140 H (60-115) mg/dL Osmolality 235 L (281-305) mosm/kg Calcium 9.3 (8.4-10.2) mg/dL Magnesium 1.9 (1.6-2.6) mg/dL Total Bilirubin 1.4 H (0.0-1.0) mg/dL Direct Bilirubin 0.4 (0.0-0.5) mg/dL AST 23 (5-31) U/L ALT 17 (0-31) U/L Alkaline Phosphatase 73 (39-117) U/L Troponin I High Sens 4.7 (<3.5-17.0) ng/L Total Protein 7.3 (6.5-8.0) g/dL Albumin 4.2 (3.5-5.0) g/dL Lipase 47 (8-78) U/L Urine Color Yellow Urine Appearance Clear Urine pH 7.5 (5.0-9.0) Ur Specific [place] 1.010 (1.005-1.025) Urine Protein Negative (Neg-Trace) mg/dL Urine Glucose (UA) Negative (Negative) mg/dL Urine Ketones Negative (Negative) mg/dL Urine Blood Negative (Negative) Urine Nitrite Negative (Negative) Ur Leukocyte Esterase Trace H (Negative) Urine RBC 0-2 (0-2) /HPF Urine WBC 0-5 (0-5) /HPF Ur Squamous Epith Cells 0-2 (0-2) /HPF Urine Bacteria Trace (None Seen) Hyaline Casts 0-2 (0-2) /LPF Urine Osmolality 387 (373-1093) mosm/kg Ur Random Sodium 72.0 mmol/L Ur Random Potassium 56.8 mmol/L Urine Creatinine 42.99 mg/dL Influenza Type A (PCR) NEGATIVE (Negative) Influenza Type B (PCR) NEGATIVE (Negative) RSV RNA Qual (PCR) NEGATIVE (Negative) SARS-CoV-2 RNA (RT-PCR) NEGATIVE (Negative) 04/30/24 Range/Units 22:01 WBC (4.8-10.8) X10*3/uL RBC (4.20-5.50) X10*6/uL Hgb (12.0-16.0) g/dl Hct (37.0-47.0) % MCV (80.0-98.0) fL MCH (27.0-33.0) pg MCHC (31.0-35.0) g/dl RDW (11.0-16.0) % Plt Count (160-400) X10*3/uL MPV (9.4-12.3) fL Immature Gran % (Auto) (0.0-0.4) % Neut % (Auto) (45-73) % Lymph % (Auto) (20-40) % [place] % (Auto) (2-11) % Eos % (Auto) (0-4) % Baso % (Auto) (0-2) % Lymph # (Auto) (1.2-4.9) X10*3/uL [place] # (Auto) (0.1-1.2) X10*3/uL Eos # (Auto) (0.0-0.4) X10*3/uL Baso # (Auto) (0.0-0.2) X10*3/uL Abs Immat Gran (auto) (0.00-0.03) X10*3/uL Absolute Neuts (auto) (2.0-8.3) x10*3/uL Absolute Nucleated RBC (0.0-0.012) X10*3/uL Nucleated RBC % (auto) (0.0-0.2) /100WBC Sodium 111 L* (135-145) mmol/L Potassium 2.5 L* (3.3-5.1) mmol/L Chloride 70 L (96-108) mmol/L Carbon Dioxide 28 (22-29) mmol/L Anion Gap 16 (12-20) BUN 8 L (9-16) mg/dL Creatinine 0.61 (0.5-1.4) mg/dL Estim Creat Clear Calc 49.5 Estimated GFR > 60 Random Glucose 145 H (60-115) mg/dL Osmolality (281-305) mosm/kg Calcium 9.1 (8.4-10.2) mg/dL Magnesium (1.6-2.6) mg/dL Total Bilirubin (0.0-1.0) mg/dL Direct Bilirubin (0.0-0.5) mg/dL AST (5-31) U/L ALT (0-31) U/L Alkaline Phosphatase (39-117) U/L Troponin I High Sens (<3.5-17.0) ng/L Total Protein (6.5-8.0) g/dL Albumin (3.5-5.0) g/dL Lipase (8-78) U/L Urine Color Urine Appearance Urine pH (5.0-9.0) Ur Specific [place] (1.005-1.025) Urine Protein (Neg-Trace) mg/dL Urine Glucose (UA) (Negative) mg/dL Urine Ketones (Negative) mg/dL Urine Blood (Negative) Urine Nitrite (Negative) Ur Leukocyte Esterase (Negative) Urine RBC (0-2) /HPF Urine WBC (0-5) /HPF Ur Squamous Epith Cells (0-2) /HPF Urine Bacteria (None Seen) Hyaline Casts (0-2) /LPF Urine Osmolality (373-1093) mosm/kg Ur Random Sodium mmol/L Ur Random Potassium mmol/L Urine Creatinine mg/dL Influenza Type A (PCR) (Negative) Influenza Type B (PCR) (Negative) RSV RNA Qual (PCR) (Negative) SARS-CoV-2 RNA (RT-PCR) (Negative) Critical Care Time Critical Care Time Critical Care Time: Yes Total Critical Care Time: 50 Attestation: Patient required multiple electrolyte rechecked, consultation with nephrology x2, ICU consultation and admission. Discharge Plan Discharge Clinical Impression: Acute hyponatremia Patient Disposition: Admitted As Inpatient Prescriptions: No Action ferrous sulfate 325 mg (65 mg iron) Tablet 325 mg PO BID Qty: 60 6RF omeprazole 40 mg capsule,delayed release(DR/EC) 1 cap PO BID fluticasone propion-salmeterol [Advair HFA] 115-21 mcg/actuation HFA aerosol inhaler 2 puff inhalation BID atorvastatin 10 mg tablet 1 tab PO DAILY aspirin 81 mg tablet,delayed release (DR/EC) 1 tab PO DAILY levothyroxine 75 mcg tablet 1 tab PO DAILY zolpidem 5 mg tablet 1 tab PO BEDTIME PRN (Reason: Insomnia) losartan-hydrochlorothiazide 50-12.5 mg tablet 1 tab PO DAILY calcium citrate [Calcitrate] 200 mg (950 mg) tablet 1 tab PO BID cholecalciferol (vitamin D3) [Vitamin D3] 50 mcg (2,000 unit) capsule 1 cap PO DAILY ferrous sulfate [Iron (ferrous sulfate)] 325 mg (65 mg iron) Tablet 325 mg PO BID Qty: 60 1RF naproxen 250 mg tablet 250 mg PO DAILY PRN (Reason: moderate pain) albuterol sulfate 90 mcg/actuation HFA aerosol inhaler 2 puff inhalation Q4-6H PRN (Reason: cough) Qty: 8.5 0RF Print Language: Estonian
--- NOTE | 2024-04-30 16:58 | ECG_ITS ---
Test Reason : DIZZINESS Blood Pressure : / mmHG Vent. Rate : 076 BPM Atrial Rate : 076 BPM P-R Int : 166 ms QRS Dur : 078 ms QT Int : 438 ms P-R-T Axes : 075 005 070 degrees QTc Int : 492 ms Sinus rhythm with Premature supraventricular complexes Septal infarct , age undetermined Abnormal ECG When compared to the previous EKG of Prolonged QTc Referred By: Mehreen Lenz Electronically Signed By:Valentin Valencia
[2024-04-30 17:36] LABS: MANUAL DIFF FLAG NO
[2024-04-30 17:40] LABS: Basophils Percent Auto 0.3 % (0-2); Eosinophils Percent Auto 0.1 % (0-4); Hematocrit 34.1 % (37.0-47.0); Hemoglobin 12.1 g/dl (12.0-16.0); Imm Gran Abs Auto 0.07 X10*3/uL (0.00-0.03); Imm Gran Pct Auto 0.7 % (0.0-0.4); Lymphocytes Percent Auto 19.3 % (20-40); Mean Corpuscular HGB Conc 35.5 g/dl (31.0-35.0); Mean Corpuscular Hemoglobin 26.4 pg (27.0-33.0); Mean Corpuscular Volume 74.3 fL (80.0-98.0); Mean Platelet Volume 10.3 fL (9.4-12.3); Monocytes Absolute Auto 0.8 X10*3/uL (0.1-1.2); Monocytes Percent Auto 7.5 % (2-11); Neutrophils Absolute Auto 7.6 x10*3/uL (2.0-8.3); Neutrophils Percent Auto 72.1 % (45-73); Platelet Count 229 X10*3/uL (160-400); Red Blood Count 4.59 X10*6/uL (4.20-5.50); Red Cell Distribution Width 13.8 % (11.0-16.0); White Blood Count 10.5 X10*3/uL (4.8-10.8)
[2024-04-30 17:57] LABS: Troponin-I High Sensitivity 4.7 ng/L (<3.5-17.0)
[2024-04-30 18:15] LABS: Influenza A PCR NEGATIVE (Negative); Influenza B PCR NEGATIVE (Negative); Resp Syncy Virus RNA Qual PCR NEGATIVE (Negative); SARS COV2 PCR INHOUSE NEGATIVE (Negative)
[2024-04-30 18:25] LABS: Alanine Aminotransferase 17 U/L (0-31); Albumin Level 4.2 g/dL (3.5-5.0); Alkaline Phosphatase 73 U/L (39-117); Anion Gap 16 (12-20); Aspartate Amino Transferase 23 U/L (5-31); Bilirubin Direct 0.4 mg/dL (0.0-0.5); Bilirubin Total 1.4 mg/dL (0.0-1.0); Blood Urea Nitrogen 9 mg/dL (9-16); Calcium 9.3 mg/dL (8.4-10.2); Carbon Dioxide 26 mmol/L (22-29); Chloride 72 mmol/L (96-108); Creatinine Clr Calc Pharmacy 46.4; Estimated Glomerular Filt Rate > 60; Glucose Random 140 mg/dL (60-115); Lipase 47 U/L (8-78); Magnesium 1.9 mg/dL (1.6-2.6); Potassium 2.6 mmol/L (3.3-5.1); Sodium 111 mmol/L (135-145); Total Protein 7.3 g/dL (6.5-8.0)
[2024-04-30 19:07] VITALS: BP 201/71; PULSE 73; RESP 6; TEMP 36.8; O2SAT 91
[2024-04-30 19:08] VITALS: BP 201/78; PULSE 73; RESP 15; O2SAT 91
[2024-04-30 19:27] VITALS: BP 196/86; PULSE 76; RESP 13; TEMP 36.9; O2SAT 100
[2024-04-30 20:01] LABS: Osmolality, Serum 235 mosm/kg (281-305)
[2024-04-30 20:19] LABS: Appearance Urine Clear; Color Urine Yellow; Glucose Urine UA Negative (Negative); Leukocyte Esterase Urine Trace (Negative); Nitrite Urine Negative (Negative); PH 7.5 (5.0-9.0); UMIC TRIGGER UACC YES; Urine Blood Negative (Negative); Urine Ketones Negative (Negative); Urine Protein Negative (Neg-Trace)
[2024-04-30 20:20] LABS: Osmolality Urine 387 mosm/kg (373-1093)
[2024-04-30 20:21] LABS: Potassium Urine Random 56.8 mmol/L
[2024-04-30 20:26] LABS: Creatinine Urine 42.99 mg/dL
[2024-04-30 20:31] LABS: Bacteria Urine Trace (None Seen); Hyaline Casts Urine 0-2 /LPF (0-2); RBC Urine 0-2 /HPF (0-2); Squamous Epithelial Cell Urine 0-2 /HPF (0-2); WBC Urine 0-5 /HPF (0-5)
[2024-04-30 22:00] VITALS: BP 174/73; PULSE 71; RESP 18; TEMP 36.9; O2SAT 96
[2024-04-30] MEDS: Potassium Chloride ER 20 MEQ TAB.ER.PRT 40 MEQ PO ×2 (22:22→23:36)
[2024-04-30 22:26] LABS: Anion Gap 16 (12-20); Blood Urea Nitrogen 8 mg/dL (9-16); Calcium 9.1 mg/dL (8.4-10.2); Carbon Dioxide 28 mmol/L (22-29); Chloride 70 mmol/L (96-108); Creatinine Clr Calc Pharmacy 49.5; Estimated Glomerular Filt Rate > 60; Glucose Random 145 mg/dL (60-115); Potassium 2.5 mmol/L (3.3-5.1); Sodium 111 mmol/L (135-145)
[2024-04-30 23:25] VITALS: O2SAT 99
--- NOTE | 2024-04-30 23:30 | PM.CCHP ---
History of Present Illness Date of Service: 04/30/24 Attending physician on admission: Ursula Moulton Chief Complaint: Dizziness ?The patient is a 78-year-old female with a past medical history of hypertension, hypothyroidism, hyperlipidemia,? iron-deficiency anemia, history of colon cancer and depression who presented to the emergency department for evaluation of dizziness and weakness.? Patient reported not feeling well in the past 5 days, she reports decreased appetite, drinking lots of water despite not eating much and frequent urination. ?On arrival to the emergency department patient was hypertensive? to systolic of 200s, ? alert and oriented x3 can only reporting mild dizziness. Laboratory data was significant for serum sodium of 111, potassium 2.6 and chloride 72 Imaging: ?Abdominal CT with no acute findings Patient takes a combination of losartan with hydrochlorothiazide, zolpidem and no loop diuretics,? ED provider consulted Nephrology who advised for normal saline 75 mL/hour.? ?Patient admitted to ICU for hemodynamic monitoring acute hyponatremia Review of Systems Review of Systems: Yes all other systems are reviewed and are negative PMFSH Past Medical History Medical History FH: cholecystectomy Prediabetes Allergic rhinitis Depression Iron deficiency anemia Colon cancer Insomnia High cholesterol HTN (hypertension) Asthma Family History Family History Other No family history of cancer Surgical History Surgical History H/O resection of liver H/O right hemicolectomy H/O: hysterectomy H/O colonoscopy History of surgery of liver Social History Social History Household Members: Family and Caregiver Housing: House Are you a primary plant health care technician to a significant other at home: No Do you presently have visiting nurse or other home services: Yes (pt son is SPREAD CUTTER) Alcohol intake: never Patient Tobacco Use Status: Never used Tobacco Smoked in Last 30 Days: No Use of substances other than those prescribed or required for medical reasons: No Have you been hit, kicked, punched, or otherwise hurt by someone within the past year? If so, by whom?: No Is there a partner from a previous relationship who is making you feel unsafe now?: No Are you made to feel afraid or neglected: No Advance Directives: Yes Advance Directives on File: Yes Advance Directives Date on File: 02/04/22 Do you have a plan to hurt others: No Plan Recently lost weight without trying: Unsure Patient : No Poor oral hygiene: No service: No Current occupational status: disabled Meds Allergies Allergy/AdvReac Type Severity Reaction Status Date / Time No Known Allergies Allergy Verified 04/30/24 17:00 Active Medications: Current Medications Enoxaparin Sodium (Enoxaparin Sodium 30 Mg/0.3 Ml Syringe) 30 mg SUBCUT Q24H TONE Sodium Chloride (Ns) 1,000 mls @ 75 mls/hr IVCONT .[id number] TONE Potassium Chloride (Potassium Chloride Er 20 Meq Tab.Er.Prt) 40 meq PO ONCE ONE Stop: 05/01/24 00:01 Home Medications ?Medication ?Instructions ?Recorded ?Confirmed ?Last Taken ?Type aspirin 81 mg tablet,delayed 1 tab PO DAILY 08/10/20 01/18/24 Unknown History release atorvastatin 10 mg tablet 1 tab PO DAILY 08/10/20 01/18/24 Unknown History calcium citrate 200 mg (950 mg) 1 tab PO BID 08/10/20 01/18/24 Unknown History tablet (Calcitrate) cholecalciferol (vitamin D3) 50 1 cap PO DAILY 08/10/20 01/18/24 Unknown History mcg (2,000 unit) capsule (Vitamin D3) fluticasone propionate 115 2 puff inhalation BID 08/10/20 01/18/24 Unknown History mcg-salmeterol 21 mcg/actuation HFA inhaler (Advair HFA) levothyroxine 75 mcg tablet 1 tab PO DAILY 08/10/20 01/18/24 Unknown History losartan 50 mg-hydrochlorothiazide 1 tab PO DAILY 08/10/20 01/18/24 01/12/23 History 12.5 mg tablet omeprazole 40 mg capsule,delayed 1 cap PO BID 08/10/20 01/18/24 Unknown History release zolpidem 5 mg tablet 1 tab PO BEDTIME PRN Insomnia 08/10/20 01/18/24 Unknown History naproxen 250 mg tablet 250 mg PO DAILY PRN moderate pain 01/11/23 01/18/24 Unknown History Physical Exam Vital Signs: Vital Signs: Last Vital Signs Temp 98.4 F 04/30/24 22:00 Pulse 71 04/30/24 22:00 Resp 18 04/30/24 22:00 BP 174/73 H 04/30/24 22:00 Pulse Ox 96 04/30/24 22:00 O2 Del Method Room Air 04/30/24 22:00 BMI result Body Mass Index 25.8 ?General:? Alert oriented x3 no acute distress.? Speaking full sentences.? Speech is well articulated, thought process is coherent.? Following all commands. ?HEENT:? Head is normocephalic, atraumatic, pupils equal round reactive to light accommodation bilaterally.? Extraocular movements appear intact.? Buccal mucosa is dry, Neck is supple ?Cardiac:? Clear S1-S2, no murmurs rubs or gallops. ?Pulmonary:? Clear to auscultation, no wheezes, rales or rhonchi. ?Abdomen:? Positive bowel sounds in all 4 quadrants.? Soft, nontender, no rebound or guarding.?? ?Musculoskeletal:? Moving all 4 extremities upon request a major joints, there is no crepitus or tenderness.? The strength is 5/5 bilaterally and throughout all 4 extremities.? Gait not assessed at this point. ?Neurologic:? cranial nerves 2-12 are grossly intact.? No focal deficits noted. Motor strength as above.?? ?Skin:? Intact, no lesions, edema, erythema, clubbing or cyanosis.? No ulcers. Vascular:? 2+ pulses upper and lower extremities distally.? Results Labs 05/01/24 02:17 05/01/24 05:14 Labs: Laboratory Results - last 24 hr 04/30/24 04/30/24 04/30/24 17:31 19:24 19:38 MCV 74.3 L MCH 26.4 L MCHC 35.5 H RDW 13.8 Plt Count 229 MPV 10.3 Immature Gran % (Auto) 0.7 H Neut % (Auto) 72.1 Lymph % (Auto) 19.3 L [place] % (Auto) 7.5 Eos % (Auto) 0.1 Baso % (Auto) 0.3 Lymph # (Auto) 2.0 [place] # (Auto) 0.8 Eos # (Auto) 0.0 Baso # (Auto) 0.0 Abs Immat Gran (auto) 0.07 H Absolute Neuts (auto) 7.6 Absolute Nucleated RBC 0.000 Nucleated RBC % (auto) 0.0 Anion Gap 16 Estim Creat Clear Calc 46.4 Estimated GFR > 60 Random Glucose 140 H Osmolality 235 L Calcium 9.3 Magnesium 1.9 Total Bilirubin 1.4 H Direct Bilirubin 0.4 AST 23 ALT 17 Alkaline Phosphatase 73 Troponin I High Sens 4.7 Total Protein 7.3 Albumin 4.2 Lipase 47 Urine Color Yellow Urine Appearance Clear Urine pH 7.5 Ur Specific [place] 1.010 Urine Protein Negative Urine Glucose (UA) Negative Urine Ketones Negative Urine Blood Negative Urine Nitrite Negative Ur Leukocyte Esterase Trace H Urine RBC 0-2 Urine WBC 0-5 Ur Squamous Epith Cells 0-2 Urine Bacteria Trace Hyaline Casts 0-2 Urine Osmolality 387 Ur Random Sodium 72.0 Ur Random Potassium 56.8 Urine Creatinine 42.99 Influenza Type A (PCR) NEGATIVE Influenza Type B (PCR) NEGATIVE RSV RNA Qual (PCR) NEGATIVE SARS-CoV-2 RNA (RT-PCR) NEGATIVE 04/30/24 22:01 MCV MCH MCHC RDW Plt Count MPV Immature Gran % (Auto) Neut % (Auto) Lymph % (Auto) [place] % (Auto) Eos % (Auto) Baso % (Auto) Lymph # (Auto) [place] # (Auto) Eos # (Auto) Baso # (Auto) Abs Immat Gran (auto) Absolute Neuts (auto) Absolute Nucleated RBC Nucleated RBC % (auto) Anion Gap 16 Estim Creat Clear Calc 49.5 Estimated GFR > 60 Random Glucose 145 H Osmolality Calcium 9.1 Magnesium Total Bilirubin Direct Bilirubin AST ALT Alkaline Phosphatase Troponin I High Sens Total Protein Albumin Lipase Urine Color Urine Appearance Urine pH Ur Specific [place] Urine Protein Urine Glucose (UA) Urine Ketones Urine Blood Urine Nitrite Ur Leukocyte Esterase Urine RBC Urine WBC Ur Squamous Epith Cells Urine Bacteria Hyaline Casts Urine Osmolality Ur Random Sodium Ur Random Potassium Urine Creatinine Influenza Type A (PCR) Influenza Type B (PCR) RSV RNA Qual (PCR) SARS-CoV-2 RNA (RT-PCR) Imaging Radiologist's Impressions: Impressions Abdomen/Pelvis CT 04/30/24 20:26 IMPRESSION: Chronic appearing and postoperative changes similar to the prior study. Again the common bile duct is dilated containing debris and likely distal stones. Assessment and Plan (1) Acute hyponatremia: Status: Acute (2) Hypokalemia: Status: Acute Plan 78-year-old female with a past medical history of hypertension, hypothyroidism, hyperlipidemia,? iron-deficiency anemia, history of colon cancer and depression? presents with dizziness and weakness admitted to ICU for acute hyponatremia? ?Plan:? Neuro:? ?weakness/dizziness: from Low? sodium levels,? she is alert and oriented x3, will continue? to closely monitor neuro status as we replace sodium.? Cardiac: ? no acute issues Pulmonary:? No acute issues Renal:? Acute hyponatremia? - patient is on a combination of losartan and hydrochlorothiazide as well as zolpidem home,? no loop diuretics,? she also admits to drinking? high amount of water? without eating solid foods.? ? She has history of colon cancer,? but no active cancer as of right now. She also has a history of hypothyroidism.? Will add TSH levels.? Nephrology was consulted by ED? provider,? who advised? for? normal saline at? 75 mL/hour. ? Will resume regular diet, Water restriction.? Frequent neuro checks. Serial serum sodium.? ?Hypokalemia:? patient?s potassium 2.6, ? EKG is stable. Received a total of 80 mg in the emergency department.? We will continue replacement and cont to trend K.? Endo:? No acute issues.?? GI: no acute issues?? ID:? no acute issues Heme/Onc:? No acute issues. Psych:? no acute Miscellaneous: ? no acute issues Diet: regular diet ? prophylaxis:? Lovenox subcut,?? CODE: FULL CODE? ?Critical care time x 60 min of critical care time ?
[2024-04-30] MEDS: 0.9 % Sodium Chloride 1,000 ML 75 ML IVCONT (23:36)
[2024-04-30 23:40] LABS: Magnesium 1.8 mg/dL (1.6-2.6); Phosphorus 1.8 mg/dL (2.7-4.5)
[2024-05-01] VITALS (24 sets, daily range): BP systolic 105–177; BP diastolic 47–99; PULSE 64–90; RESP 13–21; TEMP 36.4–36.9; O2SAT 94–100; BMI 26.2; BMI 25.9
[2024-05-01] MEDS: Magnesium Sulfate/D5W 1 GM/100 ML PIGGYBACK IV (00:24)
[2024-05-01] MEDS: Potassium Chloride Packet 20 MEQ PACKET 40 MEQ PO ×2 (00:26→03:32)
[2024-05-01] MEDS: Sodium,Potassium Phosphates POWD.PACK 2 PACKET PO ×2 (00:33→01:55)
[2024-05-01 02:30] LABS: Basophils Percent Auto 0.2 % (0-2); Eosinophils Percent Auto 0.2 % (0-4); Hematocrit 35.3 % (37.0-47.0); Hemoglobin 12.8 g/dl (12.0-16.0); Imm Gran Abs Auto 0.07 X10*3/uL (0.00-0.03); Imm Gran Pct Auto 0.5 % (0.0-0.4); Lymphocytes Absolute Auto 2.9 X10*3/uL (1.2-4.9); Lymphocytes Percent Auto 21.3 % (20-40); MANUAL DIFF FLAG SCAN; Mean Corpuscular HGB Conc 36.3 g/dl (31.0-35.0); Mean Corpuscular Hemoglobin 26.7 pg (27.0-33.0); Mean Corpuscular Volume 73.5 fL (80.0-98.0); Mean Platelet Volume 10.8 fL (9.4-12.3); Monocytes Absolute Auto 1.6 X10*3/uL (0.1-1.2); Monocytes Percent Auto 11.7 % (2-11); Neutrophils Absolute Auto 8.9 x10*3/uL (2.0-8.3); Neutrophils Percent Auto 66.1 % (45-73); Platelet Count 229 X10*3/uL (160-400); Red Cell Distribution Width 13.9 % (11.0-16.0); SCAN SMEAR FLAG 1; White Blood Count 13.5 X10*3/uL (4.8-10.8)
[2024-05-01 03:02] LABS: SLIDE REVIEW VERIFIED
[2024-05-01 03:17] LABS: Anion Gap 17 (12-20); Blood Urea Nitrogen 7 mg/dL (9-16); Calcium 9.2 mg/dL (8.4-10.2); Carbon Dioxide 22 mmol/L (22-29); Chloride 73 mmol/L (96-108); Creatinine Clr Calc Pharmacy 46.8; Estimated Glomerular Filt Rate > 60; Free T4 (Free Thyroxine) 1.16 ng/dL (0.71-1.85); Glucose Random 134 mg/dL (60-115); Potassium 3.4 mmol/L (3.3-5.1); Sodium 109 mmol/L (135-145); T4 Thyroxine 10.3 ug/dL (4.5-12.0); Thyroid Stimulating Hormone 1.08 uIU/mL (0.32-4.0)
[2024-05-01] MEDS: Sodium Chloride Tab 1 GM TABLET PO (03:35)
[2024-05-01 05:44] LABS: Anion Gap 11 (12-20); Blood Urea Nitrogen 5 mg/dL (9-16); Calcium 9.1 mg/dL (8.4-10.2); Carbon Dioxide 27 mmol/L (22-29); Chloride 82 mmol/L (96-108); Creatinine Clr Calc Pharmacy 50.7; Estimated Glomerular Filt Rate > 60; Glucose Random 113 mg/dL (60-115); Magnesium 2.3 mg/dL (1.6-2.6); Potassium 4.7 mmol/L (3.3-5.1); Sodium 115 mmol/L (135-145)
[2024-05-01] MEDS: Levothyroxine Sodium 75 MCG TABLET PO (06:03)
[2024-05-01] MEDS: Enoxaparin Sodium 30 MG/0.3 ML SYRINGE SUBCUT (07:42)
--- NOTE | 2024-05-01 08:30 | PHA.MEDREC ---
Pharmacy Consult ? Medication Reconciliation Pharmacy has completed the medication reconciliation. Spoke to patient and daughter (Carolin) at bedside and confirmed medication list. Patient said she does not take albuterol, atorvastatin and naproxen. She states that she takes calcium once a a day and omeprazole once a day. Yesterday she only took her thyroid and blood pressure medications.
--- NOTE | 2024-05-01 09:25 | PM.CCPN ---
Subjective Subjective Date of Service: 05/01/24 Interval History: admitted for hyponatremia, started on normal saline 75 mL/hr in ED, w/ slow, appropriate improvement Critical Care Time (minutes): 60 Physical Exam Vital Signs: Vital Signs: Last Vital Signs Temp 98.4 F 05/01/24 08:00 Pulse 69 05/01/24 09:00 Resp 14 05/01/24 09:00 BP 125/59 L 05/01/24 09:00 Pulse Ox 98 05/01/24 09:00 O2 Del Method Room Air 05/01/24 09:00 BMI result Body Mass Index 25.9 Const: General: cooperative, comfortable, no acute distress, well developed, alert, awake and Physically active Orientation/consciousness: patient oriented x3 HEENT: Head: Yes normal to inspection, Yes normocephalic and Yes atraumatic Eyes: General: appearance normal, both eyes and all related structures Neck: Neck: Yes normal visual inspection, Yes full ROM, Yes no meningeal signs, Yes trachea midline and Yes supple Chest: Chest palpation & inspection: normal inspection of the chest Resp: Other: no appreciable rales, rhonchi, wheezing Cardio: Rate: regular rate Rhythm: regular rhythm GI: Inspection: Yes normal to inspection, No Abdominal wall edema and No distended Palpation (GI): Soft to palpation, not firm, nontender, no guarding and not rigid Skin: General skin exam: no rashes or lesions noted Neuro: General: patient oriented x3, tone normal, moves all extremities, no meningeal signs and no focal motor deficits Extrem: General: Yes normal to inspection, Yes full ROM, Yes capillary refill normal and Yes no clubbing, cyanosis or edema Psych: Appearance: grossly normal Objective Data Labs 05/01/24 02:17 05/01/24 05:14 Labs: Laboratory Results - last 24 hr 04/30/24 04/30/24 04/30/24 17:31 19:24 19:38 WBC 10.5 RBC 4.59 Hgb 12.1 Hct 34.1 L MCV 74.3 L MCH 26.4 L MCHC 35.5 H RDW 13.8 Plt Count 229 MPV 10.3 Immature Gran % (Auto) 0.7 H Neut % (Auto) 72.1 Lymph % (Auto) 19.3 L Harrison % (Auto) 7.5 Eos % (Auto) 0.1 Baso % (Auto) 0.3 Lymph # (Auto) 2.0 Harrison # (Auto) 0.8 Eos # (Auto) 0.0 Baso # (Auto) 0.0 Abs Immat Gran (auto) 0.07 H Absolute Neuts (auto) 7.6 Absolute Nucleated RBC 0.000 Nucleated RBC % (auto) 0.0 Smear Tech's Comments Sodium 111 L* D Potassium 2.6 L* D Chloride 72 L D Carbon Dioxide 26 Anion Gap 16 BUN 9 Creatinine 0.65 Estim Creat Clear Calc 46.4 Estimated GFR > 60 Random Glucose 140 H Osmolality 235 L Calcium 9.3 Phosphorus Magnesium 1.9 Total Bilirubin 1.4 H Direct Bilirubin 0.4 AST 23 ALT 17 Alkaline Phosphatase 73 Troponin I High Sens 4.7 Total Protein 7.3 Albumin 4.2 Lipase 47 TSH Free T4 Thyroxine (T4) Urine Color Yellow Urine Appearance Clear Urine pH 7.5 Ur Specific [place] 1.010 Urine Protein Negative Urine Glucose (UA) Negative Urine Ketones Negative Urine Blood Negative Urine Nitrite Negative Ur Leukocyte Esterase Trace H Urine RBC 0-2 Urine WBC 0-5 Ur Squamous Epith Cells 0-2 Urine Bacteria Trace Hyaline Casts 0-2 Urine Osmolality 387 Ur Random Sodium 72.0 Ur Random Potassium 56.8 Urine Creatinine 42.99 Influenza Type A (PCR) NEGATIVE Influenza Type B (PCR) NEGATIVE RSV RNA Qual (PCR) NEGATIVE SARS-CoV-2 RNA (RT-PCR) NEGATIVE 04/30/24 05/01/24 05/01/24 22:01 02:17 05:14 WBC 13.5 H RBC 4.80 Hgb 12.8 Hct 35.3 L MCV 73.5 L MCH 26.7 L MCHC 36.3 H RDW 13.9 Plt Count 229 MPV 10.8 Immature Gran % (Auto) 0.5 H Neut % (Auto) 66.1 Lymph % (Auto) 21.3 Harrison % (Auto) 11.7 H Eos % (Auto) 0.2 Baso % (Auto) 0.2 Lymph # (Auto) 2.9 Harrison # (Auto) 1.6 H Eos # (Auto) 0.0 Baso # (Auto) 0.0 Abs Immat Gran (auto) 0.07 H Absolute Neuts (auto) 8.9 H Absolute Nucleated RBC 0.000 Nucleated RBC % (auto) 0.0 Smear Tech's Comments VERIFIED Sodium 111 L* 109 L* 115 L* Potassium 2.5 L* 3.4 D 4.7 D Chloride 70 L 73 L 82 L Carbon Dioxide 28 22 27 Anion Gap 16 17 11 L BUN 8 L 7 L 5 L Creatinine 0.61 0.65 0.60 Estim Creat Clear Calc 49.5 46.8 50.7 Estimated GFR > 60 > 60 > 60 Random Glucose 145 H 134 H 113 Osmolality Calcium 9.1 9.2 9.1 Phosphorus 1.8 L 2.0 L Magnesium 1.8 2.3 Total Bilirubin Direct Bilirubin AST ALT Alkaline Phosphatase Troponin I High Sens Total Protein Albumin Lipase TSH 1.08 Free T4 1.16 Thyroxine (T4) 10.3 Urine Color Urine Appearance Urine pH Ur Specific [place] Urine Protein Urine Glucose (UA) Urine Ketones Urine Blood Urine Nitrite Ur Leukocyte Esterase Urine RBC Urine WBC Ur Squamous Epith Cells Urine Bacteria Hyaline Casts Urine Osmolality Ur Random Sodium Ur Random Potassium Urine Creatinine Influenza Type A (PCR) Influenza Type B (PCR) RSV RNA Qual (PCR) SARS-CoV-2 RNA (RT-PCR) Progress Note: A&P Assessment and plan (1) Acute hyponatremia: Status: Acute (2) Primary polydipsia: Status: Acute Plan Patient is a 78 Y F with hypertension, hyperlipidemia, hypothyroidism, prior colon cancer, presenting to emergency department on 04/30 w/ non-specific symptoms, found to be hyponatremic in setting of polydipsia, started on normal saline gtt N: no acute issues CV: no acute issues; hypertension R: no acute issues GI: no acute issues; fluid restriction < 1.5 L : hyponatremia, on normal saline 75 mL/hr, sodium checks q4h, goal sodium 120 at 05/01 19:00 H: no acute issues ID: no acute issues E: hypothyroidism, on home levothyroxine Quality Stroke Does the patient have a stroke diagnosis?: No VTE Prior VTE?: No VTE Risk Level:: Medical - moderate - high VTE Device Contraindication: N/A - Device Ordered VTE Drug Contraindication: N/A - Med Ordered
[2024-05-01 09:53] LABS: Anion Gap 14 (12-20); Blood Urea Nitrogen 5 mg/dL (9-16); Calcium 8.9 mg/dL (8.4-10.2); Carbon Dioxide 21 mmol/L (22-29); Chloride 86 mmol/L (96-108); Estimated Glomerular Filt Rate > 60; Glucose Random 111 mg/dL (60-115); Magnesium 2.4 mg/dL (1.6-2.6); Phosphorus 1.8 mg/dL (2.7-4.5); Potassium 4.2 mmol/L (3.3-5.1)
[2024-05-01 09:55] LABS: Sodium 117 mmol/L (135-145)
[2024-05-01] MEDS: 0.9 % Sodium Chloride 1,000 ML 50 ML IVCONT (10:30)
[2024-05-01] MEDS: Potassium Phosphate/NS 15 MMOL/250 ML PLAST..BAG 62.5 MMOL IV (10:32)
--- NOTE | 2024-05-01 12:51 | P.CONNP_ITS ---
History of Present Illness Reason for Consult Consult date: 05/01/24 Chief Complaint Chief complaint: acute hyponatmia History of Present Illness Narrative: 78-year-old female with a past medical history of hypertension, hypothyroidism, hyperlipidemia,? iron-deficiency anemia, history of colon cancer and depression who presented to the emergency department for evaluation of dizziness and weakness.? Patient reported not feeling well in the past 5 days, she reports decreased appetite, drinking lots of water despite not eating much and frequent urination. ?On arrival to the emergency department patient was hypertensive? to systolic of 200s, ? alert and oriented x3 can only reporting mild dizziness. Laboratory data was significant for serum sodium of 111, potassium 2.6 and chloride 72 Imaging: ?Abdominal CT with no acute findings Patient takes a combination of losartan with hydrochlorothiazide, zolpidem and no loop diuretics, According to family she has been drinking lots of water at home Discussed with ED provider yesterday regarding the treatment plan. Goal was to correct serum sodium at a rate of 0.5-1 millimole per L and monitor serum sodium every 2hrs Review of Systems Review of Systems Yes Unobtainable due to mental status PMFSH Past Medical History Medical History FH: cholecystectomy Prediabetes Allergic rhinitis Depression Iron deficiency anemia Colon cancer Insomnia High cholesterol HTN (hypertension) Asthma Family History Family History Other No family history of cancer Surgical History Surgical History H/O resection of liver H/O right hemicolectomy H/O: hysterectomy H/O colonoscopy History of surgery of liver Social History Social History Household Members: Family and Caregiver Housing: House Are you a primary director medicare sales to a significant other at home: No Do you presently have visiting nurse or other home services: Yes (pt son is MANAGER [employer]) Alcohol intake: never Patient Tobacco Use Status: Never used Tobacco Smoked in Last 30 Days: No Use of substances other than those prescribed or required for medical reasons: No Currently Displaying Signs/Symptoms of Drug Intoxication Withdrawal: No Have you been hit, kicked, punched, or otherwise hurt by someone within the past year? If so, by whom?: No Is there a partner from a previous relationship who is making you feel unsafe now?: No Are you made to feel afraid or neglected: No Advance Directives: Yes Advance Directives on File: Yes Advance Directives Date on File: 02/04/22 Do you have a plan to hurt others: No Plan Recently lost weight without trying: Unsure Patient : No Poor oral hygiene: No service: No Current occupational status: disabled Meds Allergies Allergy/AdvReac Type Severity Reaction Status Date / Time No Known Allergies Allergy Verified 04/30/24 17:00 Active Medications: Current Medications Enoxaparin Sodium (Enoxaparin Sodium 30 Mg/0.3 Ml Syringe) 30 mg SUBCUT Q24H [facility] Last Admin: 05/01/24 07:42 Dose: 30 mg Sodium Chloride (Ns) 1,000 mls @ 50 mls/hr IVCONT .Q20H [facility] Last Admin: 05/01/24 10:30 Dose: 50 mls/hr Potassium Phosphate (Kphos) 15 mmol in 250 mls @ 62.5 mls/hr IV ONCE ONE Stop: 05/01/24 13:26 Last Admin: 05/01/24 10:32 Dose: 62.5 mls/hr Levothyroxine Sodium (Levothyroxine Sodium 25 Mcg Tablet) 25 mcg PO DAILY@0600 [facility] Home Medications ?Medication ?Instructions ?Recorded ?Confirmed ?Last Taken ?Type aspirin 81 mg tablet,delayed 1 tab PO DAILY 08/10/20 05/01/24 04/29/24 History release cholecalciferol (vitamin D3) 50 1 cap PO DAILY 08/10/20 05/01/24 04/29/24 History mcg (2,000 unit) capsule (Vitamin D3) fluticasone propionate 115 2 puff inhalation BID 08/10/20 05/01/24 04/29/24 History mcg-salmeterol 21 mcg/actuation HFA inhaler (Advair HFA) omeprazole 40 mg capsule,delayed 1 cap PO DAILY 08/10/20 05/01/24 04/29/24 History release zolpidem 5 mg tablet 1 tab PO BEDTIME PRN Insomnia 08/10/20 05/01/24 Unknown History calcium carbonate 500 mg PO DAILY 05/01/24 05/01/24 04/29/24 History chlorthalidone 25 mg tablet 25 mg PO DAILY blood pressure 05/01/24 05/01/24 04/30/24 History levothyroxine 25 mcg tablet 25 mcg PO DAILY 05/01/24 05/01/24 04/30/24 History losartan 100 mg tablet 100 mg PO DAILY 05/01/24 05/01/24 04/30/24 History oxycodone 5 mg tablet 5 mg PO BID PRN severe pain 05/01/24 05/01/24 Unknown History Physical Exam Vital Signs: Last Vital Signs Temp 98.1 F 05/01/24 12:00 Pulse 82 05/01/24 12:00 Resp 16 05/01/24 12:00 BP 151/71 H 05/01/24 12:00 Pulse Ox 97 05/01/24 12:00 O2 Del Method Room Air 05/01/24 12:00 BMI result Body Mass Index 25.9 Const General: comfortable; No acute distress Orientation/consciousness: patient oriented x3 Eyes General: appearance normal, both eyes and all related structures Visual Gordon: normal visual gordon by confrontation Neck Neck: Yes supple and Yes no JVD Resp Effort & Inspection: normal respiratory effort and respiratory effort not decreased Auscultation: rhonchi Cardio Palpation: no palpable S3 and no palpable S4 Heart sounds: no rubs GI Inspection: Yes normal to inspection Palpation (GI): Soft to palpation Percussion: Yes normal to percussion Auscultation: normal bowel sounds General: Yes no CVA tenderness Back/Spine/Pelvis Back: no CVA tenderness Skin General skin exam: no petechiae and no purpura Neuro General: patient oriented x3 and no focal motor deficits Extrem General: No clubbing and No edema Results Lab Results 05/01/24 02:17 05/01/24 08:59 Lab results: Chemistry 04/30/24 04/30/24 05/01/24 17:31 22:01 02:17 Sodium 111 L* D 111 L* 109 L* Potassium 2.6 L* D 2.5 L* 3.4 D Carbon Dioxide 26 28 22 BUN 9 8 L 7 L Creatinine 0.65 0.61 0.65 Calcium 9.3 9.1 9.2 Phosphorus 1.8 L 05/01/24 05/01/24 05:14 08:59 Sodium 115 L* 117 L* Potassium 4.7 D 4.2 Carbon Dioxide 27 21 L BUN 5 L 5 L Creatinine 0.60 0.55 Calcium 9.1 8.9 Phosphorus 2.0 L 1.8 L Hematology 04/30/24 05/01/24 17:31 02:17 WBC 10.5 13.5 H Hgb 12.1 12.8 Plt Count 229 229 Urinalysis 04/30/24 19:38 Urine Color Yellow Urine Appearance Clear Urine pH 7.5 Ur Specific [place] 1.010 Urine Protein Negative Urine Glucose (UA) Negative Urine Ketones Negative Urine Blood Negative Urine Nitrite Negative Ur Leukocyte Esterase Trace H Urine RBC 0-2 Urine WBC 0-5 Ur Squamous Epith Cells 0-2 Hyaline Casts 0-2 Urine Studies 04/30/24 19:38 Urine Osmolality 387 Urine Creatinine 42.99 Assessment and Plan (1) Acute hyponatremia: Status: Acute (2) Hypokalemia: Status: Acute Plan Severe hyponatremia with hypokalemia due to use of HCTZ. Increase free water intake could have contributed to the worsening hyponatremia. Urine studies suggestive of hypovolemia. No evidence of hypothyroidism. Cortisol level is pending. Recommendations correct serum sodium at a rate of 0.5-1 millimole per L per. Not exceed more than 10 millimoles in 24 hour. Restrict oral free water intake. Discontinue hydrochlorothiazide. IV hydration with normal saline at 75 cc/hour and keep monitoring serum sodium every 2-4 hours. So far rate of correction is acceptable. Discussed with ICU team Procedures Date of Service Date of Service: 05/01/24
[2024-05-01] MEDS: Levothyroxine Sodium 25 MCG TABLET PO (13:32)
[2024-05-01 13:39] LABS: Anion Gap 15 (12-20); Blood Urea Nitrogen 5 mg/dL (9-16); Calcium 8.7 mg/dL (8.4-10.2); Carbon Dioxide 21 mmol/L (22-29); Chloride 88 mmol/L (96-108); Creatinine Clr Calc Pharmacy 49.6; Estimated Glomerular Filt Rate > 60; Glucose Random 135 mg/dL (60-115); Potassium 4.2 mmol/L (3.3-5.1); Sodium 120 mmol/L (135-145)
--- NOTE | 2024-05-01 14:32 | MHC.CM.PN ---
Pt receiving care in ICU for a critically low serum sodium: Call placed to pt's HCP/dtr Carolin who states pt resides alone but has 4 hours daily of [employer] care provided by pt's son through [employer]. Both Carolin and her brother assist w/transportation and any needs pt may have. Pt does not have other services or DME. PCP is a provider at [facility] which Carolin feels may have recently changed. HCP on file and verified: IMM explained by phone and copy will be left in pt's room. Family to transport pt to home: No additional services anticipated at this time. CM to follow.
[2024-05-01 17:41] LABS: Anion Gap 14 (12-20); Blood Urea Nitrogen 6 mg/dL (9-16); Calcium 8.8 mg/dL (8.4-10.2); Carbon Dioxide 22 mmol/L (22-29); Chloride 91 mmol/L (96-108); Creatinine Clr Calc Pharmacy 47.3; Estimated Glomerular Filt Rate > 60; Glucose Random 148 mg/dL (60-115); Potassium 3.8 mmol/L (3.3-5.1); Sodium 123 mmol/L (135-145)
[2024-05-01 21:32] LABS: Anion Gap 15 (12-20); Blood Urea Nitrogen 7 mg/dL (9-16); Calcium 8.6 mg/dL (8.4-10.2); Carbon Dioxide 21 mmol/L (22-29); Chloride 89 mmol/L (96-108); Estimated Glomerular Filt Rate > 60; Glucose Random 113 mg/dL (60-115); Potassium 3.6 mmol/L (3.3-5.1); Sodium 121 mmol/L (135-145)
[2024-05-02] VITALS (14 sets, daily range): BP systolic 103–177; BP diastolic 46–81; PULSE 16–93; RESP 12–23; TEMP 36.1–36.8; O2SAT 89–100; BMI 25.8
[2024-05-02 01:16] LABS: Anion Gap 14 (12-20); Blood Urea Nitrogen 8 mg/dL (9-16); Calcium 8.9 mg/dL (8.4-10.2); Carbon Dioxide 22 mmol/L (22-29); Chloride 89 mmol/L (96-108); Creatinine Clr Calc Pharmacy 52.2; Estimated Glomerular Filt Rate > 60; Glucose Random 110 mg/dL (60-115); Potassium 3.2 mmol/L (3.3-5.1); Sodium 122 mmol/L (135-145)
[2024-05-02] MEDS: Potassium Chloride Packet 20 MEQ PACKET 40 MEQ PO (02:13)
[2024-05-02 04:44] LABS: MANUAL DIFF FLAG NO
[2024-05-02 04:46] LABS: Basophils Percent Auto 0.4 % (0-2); Eosinophils Absolute Auto 0.1 X10*3/uL (0.0-0.4); Eosinophils Percent Auto 0.7 % (0-4); Hematocrit 36.1 % (37.0-47.0); Hemoglobin 12.3 g/dl (12.0-16.0); Imm Gran Abs Auto 0.07 X10*3/uL (0.00-0.03); Imm Gran Pct Auto 0.7 % (0.0-0.4); Lymphocytes Absolute Auto 2.4 X10*3/uL (1.2-4.9); Lymphocytes Percent Auto 22.7 % (20-40); Mean Corpuscular HGB Conc 34.1 g/dl (31.0-35.0); Mean Corpuscular Hemoglobin 26.1 pg (27.0-33.0); Mean Corpuscular Volume 76.6 fL (80.0-98.0); Mean Platelet Volume 10.1 fL (9.4-12.3); Monocytes Absolute Auto 1.1 X10*3/uL (0.1-1.2); Neutrophils Absolute Auto 7.1 x10*3/uL (2.0-8.3); Neutrophils Percent Auto 65.5 % (45-73); Platelet Count 186 X10*3/uL (160-400); Red Blood Count 4.71 X10*6/uL (4.20-5.50); Red Cell Distribution Width 14.5 % (11.0-16.0); White Blood Count 10.8 X10*3/uL (4.8-10.8)
[2024-05-02 05:07] LABS: Anion Gap 12 (12-20); Blood Urea Nitrogen 8 mg/dL (9-16); Carbon Dioxide 23 mmol/L (22-29); Chloride 90 mmol/L (96-108); Creatinine Clr Calc Pharmacy 52.2; Estimated Glomerular Filt Rate > 60; Glucose Random 107 mg/dL (60-115); Magnesium 2.1 mg/dL (1.6-2.6); Phosphorus 1.8 mg/dL (2.7-4.5); Potassium 4.2 mmol/L (3.3-5.1); Sodium 121 mmol/L (135-145)
[2024-05-02] MEDS: Levothyroxine Sodium 25 MCG TABLET PO (05:54)
[2024-05-02] MEDS: 0.9 % Sodium Chloride 1,000 ML 50 ML IVCONT (05:54)
[2024-05-02] MEDS: Sodium,Potassium Phosphates POWD.PACK 2 PACKET PO (05:54)
--- NOTE | 2024-05-02 07:59 | PM.CCPN ---
Subjective Subjective Date of Service: 05/02/24 Interval History: no significant overnight events Critical Care Time (minutes): 60 Physical Exam Vital Signs: Vital Signs: Last Vital Signs Temp 97.9 F 05/02/24 03:00 Pulse 80 05/02/24 07:00 Resp 23 H 05/02/24 07:00 BP 119/60 05/02/24 07:00 Pulse Ox 89 L 05/02/24 07:00 O2 Del Method Room Air 05/02/24 07:00 BMI result Body Mass Index 25.8 Const: General: cooperative, healthy appearing, comfortable, no acute distress, well developed, alert, awake and Physically active Orientation/consciousness: patient oriented x3 HEENT: Head: Yes normal to inspection, Yes No palpable skull fracture present, Yes normocephalic and Yes atraumatic Eyes: General: appearance normal, both eyes and all related structures Neck: Neck: Yes normal visual inspection, Yes full ROM, Yes no meningeal signs, Yes trachea midline and Yes supple Chest: Chest palpation & inspection: normal inspection of the chest Resp: Other: no appreciable rales, rhonchi, wheezing Cardio: Rate: regular rate Rhythm: regular rhythm GI: Inspection: Yes normal to inspection, No Abdominal wall edema and No distended Palpation (GI): Soft to palpation, not firm, nontender, no guarding and not rigid Skin: General skin exam: no rashes or lesions noted Neuro: General: patient oriented x3, tone normal, moves all extremities, no meningeal signs and no focal motor deficits Extrem: General: Yes normal to inspection, Yes full ROM, Yes capillary refill normal and Yes no clubbing, cyanosis or edema Psych: Appearance: grossly normal Objective Data Labs 05/02/24 04:34 05/02/24 04:34 Labs: Laboratory Results - last 24 hr 05/01/24 05/01/24 05/01/24 08:59 13:10 17:18 WBC RBC Hgb Hct MCV MCH MCHC RDW Plt Count MPV Immature Gran % (Auto) Neut % (Auto) Lymph % (Auto) Wilkinson % (Auto) Eos % (Auto) Baso % (Auto) Lymph # (Auto) Wilkinson # (Auto) Eos # (Auto) Baso # (Auto) Abs Immat Gran (auto) Absolute Neuts (auto) Absolute Nucleated RBC Nucleated RBC % (auto) Sodium 117 L* 120 L* 123 L Potassium 4.2 4.2 3.8 Chloride 86 L 88 L 91 L Carbon Dioxide 21 L 21 L 22 Anion Gap 14 15 14 BUN 5 L 5 L 6 L Creatinine 0.55 0.61 0.64 Estim Creat Clear Calc 55.0 49.6 47.3 Estimated GFR > 60 > 60 > 60 Random Glucose 111 135 H 148 H Calcium 8.9 8.7 8.8 Phosphorus 1.8 L Magnesium 2.4 05/01/24 05/02/24 05/02/24 21:03 00:56 04:34 WBC 10.8 RBC 4.71 Hgb 12.3 Hct 36.1 L MCV 76.6 L MCH 26.1 L MCHC 34.1 RDW 14.5 Plt Count 186 MPV 10.1 Immature Gran % (Auto) 0.7 H Neut % (Auto) 65.5 Lymph % (Auto) 22.7 Wilkinson % (Auto) 10.0 Eos % (Auto) 0.7 Baso % (Auto) 0.4 Lymph # (Auto) 2.4 Wilkinson # (Auto) 1.1 Eos # (Auto) 0.1 Baso # (Auto) 0.0 Abs Immat Gran (auto) 0.07 H Absolute Neuts (auto) 7.1 Absolute Nucleated RBC 0.000 Nucleated RBC % (auto) 0.0 Sodium 121 L 122 L 121 L Potassium 3.6 3.2 L Chloride 89 L 89 L Carbon Dioxide 21 L 22 Anion Gap 15 14 BUN 7 L 8 L Creatinine 0.55 0.58 Estim Creat Clear Calc 55.0 52.2 Estimated GFR > 60 > 60 Random Glucose 113 110 Calcium 8.6 8.9 Phosphorus Magnesium 05/02/24 05/02/24 05/02/24 04:34 04:34 04:34 WBC RBC Hgb Hct MCV MCH MCHC RDW Plt Count MPV Immature Gran % (Auto) Neut % (Auto) Lymph % (Auto) Wilkinson % (Auto) Eos % (Auto) Baso % (Auto) Lymph # (Auto) Wilkinson # (Auto) Eos # (Auto) Baso # (Auto) Abs Immat Gran (auto) Absolute Neuts (auto) Absolute Nucleated RBC Nucleated RBC % (auto) Sodium Cancelled Potassium 4.2 D Cancelled Chloride 90 L Cancelled Carbon Dioxide 23 Anion Gap BUN Creatinine Estim Creat Clear Calc Estimated GFR Random Glucose Calcium Phosphorus Magnesium 05/02/24 05/02/24 05/02/24 04:34 04:34 04:34 WBC RBC Hgb Hct MCV MCH MCHC RDW Plt Count MPV Immature Gran % (Auto) Neut % (Auto) Lymph % (Auto) Wilkinson % (Auto) Eos % (Auto) Baso % (Auto) Lymph # (Auto) [place]kinson # (Auto) Eos # (Auto) Baso # (Auto) Abs Immat Gran (auto) Absolute Neuts (auto) Absolute Nucleated RBC Nucleated RBC % (auto) Sodium Potassium Chloride Carbon Dioxide Cancelled Anion Gap 12 Cancelled BUN 8 L Cancelled Creatinine 0.58 Estim Creat Clear Calc Estimated GFR Random Glucose Calcium Phosphorus Magnesium 05/02/24 05/02/24 05/02/24 04:34 04:34 04:34 WBC RBC Hgb Hct MCV MCH MCHC RDW Plt Count MPV Immature Gran % (Auto) Neut % (Auto) Lymph % (Auto) Wilkinson % (Auto) Eos % (Auto) Baso % (Auto) Lymph # (Auto) Wilkinson # (Auto) Eos # (Auto) Baso # (Auto) Abs Immat Gran (auto) Absolute Neuts (auto) Absolute Nucleated RBC Nucleated RBC % (auto) Sodium Potassium Chloride Carbon Dioxide Anion Gap BUN Creatinine Cancelled Estim Creat Clear Calc 52.2 Cancelled Estimated GFR > 60 Cancelled Random Glucose 107 Calcium Phosphorus Magnesium 05/02/24 05/02/24 04:34 04:34 WBC RBC Hgb Hct MCV MCH MCHC RDW Plt Count MPV Immature Gran % (Auto) Neut % (Auto) Lymph % (Auto) Wilkinson % (Auto) Eos % (Auto) Baso % (Auto) Lymph # (Auto) Wilkinson # (Auto) Eos # (Auto) Baso # (Auto) Abs Immat Gran (auto) Absolute Neuts (auto) Absolute Nucleated RBC Nucleated RBC % (auto) Sodium Potassium Chloride Carbon Dioxide Anion Gap BUN Creatinine Estim Creat Clear Calc Estimated GFR Random Glucose Cancelled Calcium 9.0 Cancelled Phosphorus 1.8 L Magnesium 2.1 Progress Note: A&P Assessment and plan (1) Acute hyponatremia: Status: Acute (2) Primary polydipsia: Status: Acute Plan Patient is a 78 Y F with hypertension, hyperlipidemia, hypothyroidism, prior colon cancer, presenting to emergency department on 04/30 w/ non-specific symptoms, found to be hyponatremic in setting of polydipsia, started on normal saline gtt N: no acute issues CV: no acute issues; hypertension R: no acute issues GI: no acute issues; fluid restriction < 1 L : hyponatremia, on normal saline 50 mL/hr, sodium checks q4h H: no acute issues ID: no acute issues E: hypothyroidism, on home levothyroxine Quality Stroke Does the patient have a stroke diagnosis?: No VTE Prior VTE?: No VTE Risk Level:: Medical - moderate - high VTE Device Contraindication: N/A - Device Ordered VTE Drug Contraindication: N/A - Med Ordered
[2024-05-02] MEDS: Enoxaparin Sodium 30 MG/0.3 ML SYRINGE SUBCUT (08:34)
[2024-05-02 09:47] LABS: Anion Gap 12 (12-20); Blood Urea Nitrogen 8 mg/dL (9-16); Calcium 8.8 mg/dL (8.4-10.2); Carbon Dioxide 25 mmol/L (22-29); Chloride 89 mmol/L (96-108); Creatinine Clr Calc Pharmacy 50.4; Estimated Glomerular Filt Rate > 60; Glucose Random 119 mg/dL (60-115); Potassium 3.6 mmol/L (3.3-5.1); Sodium 122 mmol/L (135-145)
--- NOTE | 2024-05-02 12:10 | PM.PNNEP ---
Subjective Subjective Date of Service: 05/02/24 Interval history: no significant overnight events Serum sodium noted Physical Exam Vital Signs: Vital Signs: Last Vital Signs Temp 97.0 F 05/02/24 08:00 Pulse 73 05/02/24 10:00 Resp 20 05/02/24 10:00 BP 151/46 H 05/02/24 10:00 Pulse Ox 100 05/02/24 10:00 O2 Del Method Room Air 05/02/24 10:00 BMI result Body Mass Index 25.8 Const: General: ill appearing Neck: Neck: Yes supple Resp: Auscultation: clear to auscultation bilaterally Cardio: Palpation: no palpable S3 Heart sounds: no rubs GI: Palpation (GI): Soft to palpation Auscultation: normal bowel sounds Neuro: Motor exam (neuro): no asterixis Objective Data Labs 05/04/24 06:40 05/04/24 06:40 Labs: Laboratory Results - last 24 hr 05/01/24 05/01/24 05/01/24 13:10 17:18 21:03 WBC RBC Hgb Hct MCV MCH MCHC RDW Plt Count MPV Immature Gran % (Auto) Neut % (Auto) Lymph % (Auto) [place] % (Auto) Eos % (Auto) Baso % (Auto) Lymph # (Auto) [place] # (Auto) Eos # (Auto) Baso # (Auto) Abs Immat Gran (auto) Absolute Neuts (auto) Absolute Nucleated RBC Nucleated RBC % (auto) Sodium 120 L* 123 L 121 L Potassium 4.2 3.8 3.6 Chloride 88 L 91 L 89 L Carbon Dioxide 21 L 22 21 L Anion Gap 15 14 15 BUN 5 L 6 L 7 L Creatinine 0.61 0.64 0.55 Estim Creat Clear Calc 49.6 47.3 55.0 Estimated GFR > 60 > 60 > 60 Random Glucose 135 H 148 H 113 Calcium 8.7 8.8 8.6 Phosphorus Magnesium 05/02/24 05/02/24 05/02/24 00:56 04:34 04:34 WBC 10.8 RBC 4.71 Hgb 12.3 Hct 36.1 L MCV 76.6 L MCH 26.1 L MCHC 34.1 RDW 14.5 Plt Count 186 MPV 10.1 Immature Gran % (Auto) 0.7 H Neut % (Auto) 65.5 Lymph % (Auto) 22.7 [place] % (Auto) 10.0 Eos % (Auto) 0.7 Baso % (Auto) 0.4 Lymph # (Auto) 2.4 [place] # (Auto) 1.1 Eos # (Auto) 0.1 Baso # (Auto) 0.0 Abs Immat Gran (auto) 0.07 H Absolute Neuts (auto) 7.1 Absolute Nucleated RBC 0.000 Nucleated RBC % (auto) 0.0 Sodium 122 L 121 L Cancelled Potassium 3.2 L 4.2 D Chloride 89 L Carbon Dioxide 22 Anion Gap 14 BUN 8 L Creatinine 0.58 Estim Creat Clear Calc 52.2 Estimated GFR > 60 Random Glucose 110 Calcium 8.9 Phosphorus Magnesium 05/02/24 05/02/24 05/02/24 04:34 04:34 04:34 WBC RBC Hgb Hct MCV MCH MCHC RDW Plt Count MPV Immature Gran % (Auto) Neut % (Auto) Lymph % (Auto) [place] % (Auto) Eos % (Auto) Baso % (Auto) Lymph # (Auto) [place] # (Auto) Eos # (Auto) Baso # (Auto) Abs Immat Gran (auto) Absolute Neuts (auto) Absolute Nucleated RBC Nucleated RBC % (auto) Sodium Potassium Cancelled Chloride 90 L Cancelled Carbon Dioxide 23 Cancelled Anion Gap 12 BUN Creatinine Estim Creat Clear Calc Estimated GFR Random Glucose Calcium Phosphorus Magnesium 05/02/24 05/02/24 05/02/24 04:34 04:34 04:34 WBC RBC Hgb Hct MCV MCH MCHC RDW Plt Count MPV Immature Gran % (Auto) Neut % (Auto) Lymph % (Auto) [place] % (Auto) Eos % (Auto) Baso % (Auto) Lymph # (Auto) [place] # (Auto) Eos # (Auto) Baso # (Auto) Abs Immat Gran (auto) Absolute Neuts (auto) Absolute Nucleated RBC Nucleated RBC % (auto) Sodium Potassium Chloride Carbon Dioxide Anion Gap Cancelled BUN 8 L Cancelled Creatinine 0.58 Cancelled Estim Creat Clear Calc 52.2 Estimated GFR Random Glucose Calcium Phosphorus Magnesium 05/02/24 05/02/24 05/02/24 04:34 04:34 04:34 WBC RBC Hgb Hct MCV MCH MCHC RDW Plt Count MPV Immature Gran % (Auto) Neut % (Auto) Lymph % (Auto) [place] % (Auto) Eos % (Auto) Baso % (Auto) Lymph # (Auto) [place] # (Auto) Eos # (Auto) Baso # (Auto) Abs Immat Gran (auto) Absolute Neuts (auto) Absolute Nucleated RBC Nucleated RBC % (auto) Sodium Potassium Chloride Carbon Dioxide Anion Gap BUN Creatinine Estim Creat Clear Calc Cancelled Estimated GFR > 60 Cancelled Random Glucose 107 Cancelled Calcium 9.0 Phosphorus Magnesium 05/02/24 05/02/24 04:34 09:26 WBC RBC Hgb Hct MCV MCH MCHC RDW Plt Count MPV Immature Gran % (Auto) Neut % (Auto) Lymph % (Auto) [place] % (Auto) Eos % (Auto) Baso % (Auto) Lymph # (Auto) [place] # (Auto) Eos # (Auto) Baso # (Auto) Abs Immat Gran (auto) Absolute Neuts (auto) Absolute Nucleated RBC Nucleated RBC % (auto) Sodium 122 L Potassium 3.6 Chloride 89 L Carbon Dioxide 25 Anion Gap 12 BUN 8 L Creatinine 0.60 Estim Creat Clear Calc 50.4 Estimated GFR > 60 Random Glucose 119 H Calcium Cancelled 8.8 Phosphorus 1.8 L Magnesium 2.1 Procedures Date of Service Date of Service: 05/04/24 Assessment & Plan Assessment and plan (1) Acute hyponatremia: Status: Acute (2) Hypokalemia: Status: Acute Plan Severe hyponatremia with hypokalemia due to use of HCTZ. Increase free water intake could have contributed to the worsening hyponatremia. Urine studies suggestive of hypovolemia. No evidence of hypothyroidism. Cortisol level is pending. Recommendations correct serum sodium at a rate of 0.5-1 millimole per L per. Not exceed more than 10 millimoles in 24 hour. Restrict oral free water intake. Discontinue hydrochlorothiazide. No need for further IV normal saline. Add urea powder 15 g p.o. b.i.d.. So far rate of correction is acceptable. Time Spent With Patient Time: Total time managing care of this patient today ____ minutes. Progress Note: Quality Stroke Does the patient have a stroke diagnosis?: No
[2024-05-02 13:34] LABS: Anion Gap 16 (12-20); Blood Urea Nitrogen 9 mg/dL (9-16); Calcium 8.5 mg/dL (8.4-10.2); Carbon Dioxide 21 mmol/L (22-29); Chloride 88 mmol/L (96-108); Creatinine Clr Calc Pharmacy 50.4; Estimated Glomerular Filt Rate > 60; Glucose Random 170 mg/dL (60-115); Potassium 3.2 mmol/L (3.3-5.1); Sodium 122 mmol/L (135-145)
--- NOTE | 2024-05-02 17:50 | PM.EVENT ---
Event Note Date of Service: 05/02/24 Event Note: 78-year-old female patient with past medical history significant for hypothyroidism/hypertension, hyperlipidemia, prior colon cancer admitted to ICU for hyponatremia with a sodium of 111, patient treated with IV normal saline 75 mL/hours sodium gradually improved to 122 today therefore downgraded to IMC on IV normal saline 50 mL/hour patient noted to have mild hypokalemia that is being repleted. Acute symptomatic Hyponatremia likely due to excessive fluid intake and chlorthalidone Will DC chlorthalidone monitor BMP closely, cortisol level pending Seen by Nephrology they recommend to DC IV fluid/urea powder 15 g by mouth b.i.d. Fluid restriction Acute hypokalemia replace and follow labs Hypertension noted to have elevated blood pressure resume losartan Hypothyroidism continue Synthroid Full code. Time Spent With Patient Time: Total time managing care of this patient today ____ minutes.
[2024-05-02 17:54] LABS: Anion Gap 14 (12-20); Blood Urea Nitrogen 9 mg/dL (9-16); Calcium 8.9 mg/dL (8.4-10.2); Carbon Dioxide 21 mmol/L (22-29); Chloride 90 mmol/L (96-108); Creatinine Clr Calc Pharmacy 52.1; Estimated Glomerular Filt Rate > 60; Glucose Random 118 mg/dL (60-115); Potassium 3.8 mmol/L (3.3-5.1); Sodium 121 mmol/L (135-145)
[2024-05-02] MEDS: Urea 15 GM POWDER PO (19:49)
[2024-05-02] MEDS: Simethicone 80 MG TAB.CHEW 160 MG PO (20:00)
[2024-05-02 22:13] LABS: Anion Gap 18 (12-20); Blood Urea Nitrogen 21 mg/dL (9-16); Calcium 8.5 mg/dL (8.4-10.2); Carbon Dioxide 21 mmol/L (22-29); Chloride 87 mmol/L (96-108); Estimated Glomerular Filt Rate > 60; Glucose Random 123 mg/dL (60-115); Potassium 3.7 mmol/L (3.3-5.1); Sodium 122 mmol/L (135-145)
[2024-05-03] VITALS: BP 136/67; PULSE 71; RESP 16; TEMP 36.2; O2SAT 98
[2024-05-03 04:00] VITALS: BP 148/62; PULSE 81; RESP 16; TEMP 36.1; O2SAT 93
[2024-05-03] MEDS: Omeprazole 40 MG CAPSULE.DR PO (05:20)
[2024-05-03] MEDS: Levothyroxine Sodium 25 MCG TABLET PO (05:20)
[2024-05-03 06:00] VITALS: BMI 28.4
[2024-05-03 07:13] VITALS: BP 154/65; PULSE 69; RESP 18; TEMP 36.8; O2SAT 97
[2024-05-03 07:23] LABS: Basophils Absolute Auto 0.1 X10*3/uL (0.0-0.2); Basophils Percent Auto 0.6 % (0-2); Eosinophils Absolute Auto 0.2 X10*3/uL (0.0-0.4); Eosinophils Percent Auto 1.6 % (0-4); Hematocrit 33.4 % (37.0-47.0); Hemoglobin 11.5 g/dl (12.0-16.0); Imm Gran Abs Auto 0.08 X10*3/uL (0.00-0.03); Imm Gran Pct Auto 0.7 % (0.0-0.4); Lymphocytes Absolute Auto 2.8 X10*3/uL (1.2-4.9); Lymphocytes Percent Auto 24.8 % (20-40); MANUAL DIFF FLAG SCAN; Mean Corpuscular HGB Conc 34.4 g/dl (31.0-35.0); Mean Corpuscular Hemoglobin 26.3 pg (27.0-33.0); Mean Corpuscular Volume 76.4 fL (80.0-98.0); Monocytes Percent Auto 8.7 % (2-11); Neutrophils Absolute Auto 7.2 x10*3/uL (2.0-8.3); Neutrophils Percent Auto 63.6 % (45-73); PLT CLUMP 1; Red Blood Count 4.37 X10*6/uL (4.20-5.50); Red Cell Distribution Width 14.5 % (11.0-16.0); SCAN SMEAR FLAG 1
[2024-05-03 07:32] LABS: Anion Gap 13 (12-20); Blood Urea Nitrogen 15 mg/dL (9-16); Calcium 9.2 mg/dL (8.4-10.2); Carbon Dioxide 24 mmol/L (22-29); Chloride 88 mmol/L (96-108); Creatinine Clr Calc Pharmacy 56.6; Estimated Glomerular Filt Rate > 60; Glucose Random 103 mg/dL (60-115); Magnesium 1.9 mg/dL (1.6-2.6); Phosphorus 2.2 mg/dL (2.7-4.5); Potassium 3.6 mmol/L (3.3-5.1); Sodium 121 mmol/L (135-145)
[2024-05-03 08:16] LABS: White Blood Count 11.4 X10*3/uL (4.8-10.8)
[2024-05-03 08:19] LABS: SLIDE REVIEW VERIFIED
[2024-05-03] MEDS: Cholecalciferol (Vitamin D3) 25 MCG TABLET 50 MCG PO (09:41)
[2024-05-03] MEDS: Urea 15 GM POWDER PO (09:41)
[2024-05-03] MEDS: Enoxaparin Sodium 30 MG/0.3 ML SYRINGE SUBCUT (09:41)
[2024-05-03] MEDS: Calcium Oyster Shell Elemental 500 MG TABLET PO (09:41)
[2024-05-03] MEDS: Losartan Potassium 50 MG TABLET 100 MG PO (09:41)
[2024-05-03] MEDS: Aspirin Enteric Coated 81 MG TABLET.DR PO (09:41)
--- NOTE | 2024-05-03 09:58 | P.PNIM_ITS ---
Subjective Subjective Date of Service: 05/03/24 Interval History: f/u on symptomatic hyponatremia Patient is surprisingly awake alert and oriented and talking to family, she has poor apetite Physical Exam 2 Vital Signs: Vital Signs: Last Vital Signs Temp 98.2 F 05/03/24 07:13 Pulse 69 05/03/24 07:13 Resp 18 05/03/24 07:13 BP 154/65 H 05/03/24 07:13 Pulse Ox 97 05/03/24 07:13 O2 Del Method Room Air 05/03/24 07:13 BMI result Body Mass Index 28.4 General: AO X 3, no acute distress Resp: CTA bilateral CVS: S1,S2,RRR GI: +BS, NT, no distention Skin: No rash Neuro: motor grossly intact Psych: appropriate affect Objective Data Active Medications Aspirin (Aspirin Enteric Coated 81 Mg Tablet.) 81 mg PO DAILY [facility] Last Admin: 05/03/24 09:41 Dose: 81 mg Documented By: JEANETTE Calcium Carbonate (Calcium Oyster Shell Elemental 500 Mg Tablet) 500 mg PO DAILY [facility] Last Admin: 05/03/24 09:41 Dose: 500 mg Documented By: JEANETTE Enoxaparin Sodium (Enoxaparin Sodium 30 Mg/0.3 Ml Syringe) 30 mg SUBCUT Q24H [facility] Last Admin: 05/03/24 09:41 Dose: 30 mg Documented By: JEANETTE Fluticasone/Vilanterol (Fluticasone/Vilanterol 100/25 Blst.W.Dev) 1 puff INHALE RDAILY [facility] Levothyroxine Sodium (Levothyroxine Sodium 25 Mcg Tablet) 25 mcg PO DAILY@0600 [facility] Last Admin: 05/03/24 05:20 Dose: 25 mcg Documented By: TAMMIE Losartan Potassium (Losartan Potassium 50 Mg Tablet) 100 mg PO DAILY [facility]; Protocol Last Admin: 05/03/24 09:41 Dose: 100 mg Documented By: JEANETTE Omeprazole (Omeprazole 40 Mg Capsule.) 40 mg PO DAILY@0630 [facility] Last Admin: 05/03/24 05:20 Dose: 40 mg Documented By: TAMMIE Urea (Urea 15 Gm Powder) 15 gm PO BID [facility] Last Admin: 05/03/24 09:41 Dose: 15 gm Documented By: JEANETTE Vitamin D (Cholecalciferol (Vitamin D3) 25 Mcg Tablet) 50 mcg PO DAILY [facility] Last Admin: 05/03/24 09:41 Dose: 50 mcg Documented By: JEANETTE Labs 05/03/24 06:28 05/03/24 06:28 Labs: Laboratory Results - last 24 hr 05/02/24 05/02/24 05/02/24 13:10 17:11 21:50 MCV MCH MCHC RDW Plt Count MPV Immature Gran % (Auto) Neut % (Auto) Lymph % (Auto) [place] % (Auto) Eos % (Auto) Baso % (Auto) Lymph # (Auto) [place] # (Auto) Eos # (Auto) Baso # (Auto) Abs Immat Gran (auto) Absolute Neuts (auto) Absolute Nucleated RBC Nucleated RBC % (auto) Smear Tech's Comments Hold Purple Top Anion Gap 16 14 18 Estim Creat Clear Calc 50.4 52.1 57.0 Estimated GFR > 60 > 60 > 60 Random Glucose 170 H 118 H 123 H Calcium 8.5 8.9 8.5 Phosphorus Magnesium 05/03/24 05/03/24 05/03/24 00:26 00:40 06:28 MCV 76.4 L MCH 26.3 L MCHC 34.4 RDW 14.5 Plt Count TNP MPV Not Reportable Immature Gran % (Auto) 0.7 H Neut % (Auto) 63.6 Lymph % (Auto) 24.8 [place] % (Auto) 8.7 Eos % (Auto) 1.6 Baso % (Auto) 0.6 Lymph # (Auto) 2.8 [place] # (Auto) 1.0 Eos # (Auto) 0.2 Baso # (Auto) 0.1 Abs Immat Gran (auto) 0.08 H Absolute Neuts (auto) 7.2 Absolute Nucleated RBC 0.000 Nucleated RBC % (auto) 0.0 Smear Tech's Comments VERIFIED Hold Purple Top SEE NOTE Anion Gap Cancelled 13 Estim Creat Clear Calc Cancelled 56.6 Estimated GFR Cancelled > 60 Random Glucose Cancelled 103 Calcium Cancelled 9.2 D Phosphorus 2.2 L Magnesium 1.9 Assessment and Plan (1) Primary polydipsia: Status: Acute (2) Hypokalemia: Status: Acute (3) Acute hyponatremia: Status: Acute Plan 78-year-old female patient with past medical history significant for hypothyroidism/hypertension, hyperlipidemia, prior colon cancer admitted to ICU for hyponatremia with a sodium of 111, patient treated with IV normal saline 75 mL/hours sodium gradually improved to 122 today therefore downgraded to IMC on IV normal saline 50 mL/hour patient noted to have mild hypokalemia that is being repleted. Acute symptomatic Hyponatremia likely due to excessive water intake and agravated by chlorthalidone -stopped chlorthalidone -Nephrology recommend Urea 15 bid, level unchanged, ? increase to 30 bid -continue water restriction -BMP up to twice daily Acute hypOkalemia, corrected and resolved. Hypertension , continue losartan, add Norvasc if peristently high Hypothyroidism continue Synthroid Full code need for inpatient: severe hyponatremia needing close monitoring and frequent lab draws Quality Stroke Does the patient have a stroke diagnosis?: No VTE Prior VTE?: No VTE Risk Level:: Medical - moderate - high VTE Device Contraindication: N/A - Device Ordered VTE Drug Contraindication: N/A - Med Ordered
[2024-05-03 11:18] VITALS: BP 144/62; PULSE 86; RESP 18; TEMP 36.6; O2SAT 99
[2024-05-03 15:16] VITALS: BP 120/60; PULSE 84; RESP 18; TEMP 36.4; O2SAT 97
[2024-05-03 19:55] VITALS: BP 127/59; PULSE 87; RESP 16; TEMP 36.3; O2SAT 92
[2024-05-03] MEDS: Mirtazapine 7.5 MG TABLET PO (21:11)
[2024-05-03] MEDS: Urea 15 GM POWDER 30 GM PO (21:12)
[2024-05-04] VITALS (7 sets, daily range): BP systolic 119–159; BP diastolic 56–78; PULSE 74–97; RESP 16–20; TEMP 36–37.1; O2SAT 97–100; BMI 28.4
[2024-05-04] MEDS: Levothyroxine Sodium 25 MCG TABLET PO (05:13)
[2024-05-04] MEDS: Omeprazole 40 MG CAPSULE.DR PO (06:25)
[2024-05-04 07:27] LABS: MANUAL DIFF FLAG NO
[2024-05-04 07:35] LABS: Basophils Absolute Auto 0.1 X10*3/uL (0.0-0.2); Basophils Percent Auto 0.6 % (0-2); Eosinophils Absolute Auto 0.2 X10*3/uL (0.0-0.4); Eosinophils Percent Auto 1.8 % (0-4); Hematocrit 32.9 % (37.0-47.0); Imm Gran Abs Auto 0.07 X10*3/uL (0.00-0.03); Imm Gran Pct Auto 0.7 % (0.0-0.4); Lymphocytes Absolute Auto 2.1 X10*3/uL (1.2-4.9); Lymphocytes Percent Auto 20.4 % (20-40); Mean Corpuscular HGB Conc 33.4 g/dl (31.0-35.0); Mean Corpuscular Hemoglobin 26.2 pg (27.0-33.0); Mean Corpuscular Volume 78.3 fL (80.0-98.0); Mean Platelet Volume 11.3 fL (9.4-12.3); Monocytes Absolute Auto 0.8 X10*3/uL (0.1-1.2); Monocytes Percent Auto 7.9 % (2-11); Neutrophils Absolute Auto 7.1 x10*3/uL (2.0-8.3); Neutrophils Percent Auto 68.6 % (45-73); Platelet Count 212 X10*3/uL (160-400); Red Cell Distribution Width 14.6 % (11.0-16.0); White Blood Count 10.3 X10*3/uL (4.8-10.8)
[2024-05-04 07:59] LABS: Anion Gap 14 (12-20); Blood Urea Nitrogen 53 mg/dL (9-16); Calcium 9.8 mg/dL (8.4-10.2); Carbon Dioxide 27 mmol/L (22-29); Chloride 89 mmol/L (96-108); Creatinine Clr Calc Pharmacy 50.3; Estimated Glomerular Filt Rate > 60; Glucose Random 110 mg/dL (60-115); Magnesium 2.1 mg/dL (1.6-2.6); Phosphorus 2.6 mg/dL (2.7-4.5); Potassium 3.3 mmol/L (3.3-5.1); Sodium 127 mmol/L (135-145)
[2024-05-04] MEDS: Cholecalciferol (Vitamin D3) 25 MCG TABLET 50 MCG PO (08:29)
[2024-05-04] MEDS: Aspirin Enteric Coated 81 MG TABLET.DR PO (08:29)
[2024-05-04] MEDS: Losartan Potassium 50 MG TABLET 100 MG PO (08:29)
[2024-05-04] MEDS: Calcium Oyster Shell Elemental 500 MG TABLET PO (08:29)
[2024-05-04] MEDS: Enoxaparin Sodium 40 MG/0.4 ML SYRINGE SUBCUT (08:30)
--- NOTE | 2024-05-04 09:27 | P.PNIM_ITS ---
Subjective Subjective Date of Service: 05/04/24 Interval History: f/u on symptomatic hyponatremia She is doing well, no confusion, sodium is up to 127 from 121 yesterday Physical Exam 2 Vital Signs: Vital Signs: Last Vital Signs Temp 97.1 F 05/04/24 07:27 Pulse 75 05/04/24 07:27 Resp 18 05/04/24 07:27 BP 137/75 05/04/24 07:27 Pulse Ox 100 05/04/24 07:27 O2 Del Method Room Air 05/04/24 07:27 BMI result Body Mass Index 28.4 General: AO X 3, no acute distress Resp: CTA bilateral CVS: S1,S2,RRR GI: +BS, NT, no distention Skin: No rash Neuro: motor grossly intact Psych: appropriate affect Objective Data Active Medications Aspirin (Aspirin Enteric Coated 81 Mg Tablet.) 81 mg PO DAILY [facility] Last Admin: 05/04/24 08:29 Dose: 81 mg Documented By: JEANETTE Calcium Carbonate (Calcium Oyster Shell Elemental 500 Mg Tablet) 500 mg PO DAILY [facility] Last Admin: 05/04/24 08:29 Dose: 500 mg Documented By: JEANETTE Enoxaparin Sodium (Enoxaparin Sodium 40 Mg/0.4 Ml Syringe) 40 mg SUBCUT Q24H [facility] Last Admin: 05/04/24 08:30 Dose: 40 mg Documented By: JEANETTE Fluticasone/Vilanterol (Fluticasone/Vilanterol 100/25 Blst.W.Dev) 1 puff INHALE RDAILY [facility] Last Admin: 05/04/24 07:55 Dose: Not Given Documented By: KAREN Non-Admin Reason: Patient Asleep Levothyroxine Sodium (Levothyroxine Sodium 25 Mcg Tablet) 25 mcg PO DAILY@0600 [facility] Last Admin: 05/04/24 05:13 Dose: 25 mcg Documented By: CARLOS Losartan Potassium (Losartan Potassium 50 Mg Tablet) 100 mg PO DAILY [facility]; Protocol Last Admin: 05/04/24 08:29 Dose: 100 mg Documented By: JEANETTE Mirtazapine (Mirtazapine 7.5 Mg Tablet) 7.5 mg PO BEDTIME [facility] Last Admin: 05/03/24 21:11 Dose: 7.5 mg Documented By: TAMMIE Omeprazole (Omeprazole 40 Mg Capsule.) 40 mg PO DAILY@0630 [facility] Last Admin: 05/04/24 06:25 Dose: 40 mg Documented By: CARLOS Urea (Urea 15 Gm Powder) 15 gm PO BID [facility] Vitamin D (Cholecalciferol (Vitamin D3) 25 Mcg Tablet) 50 mcg PO DAILY [facility] Last Admin: 05/04/24 08:29 Dose: 50 mcg Documented By: JEANETTE Labs 05/04/24 06:40 05/04/24 06:40 Labs: Laboratory Results - last 24 hr 05/04/24 06:40 MCV 78.3 L MCH 26.2 L MCHC 33.4 RDW 14.6 Plt Count 212 MPV 11.3 Immature Gran % (Auto) 0.7 H Neut % (Auto) 68.6 Lymph % (Auto) 20.4 [place] % (Auto) 7.9 Eos % (Auto) 1.8 Baso % (Auto) 0.6 Lymph # (Auto) 2.1 [place] # (Auto) 0.8 Eos # (Auto) 0.2 Baso # (Auto) 0.1 Abs Immat Gran (auto) 0.07 H Absolute Neuts (auto) 7.1 Absolute Nucleated RBC 0.000 Nucleated RBC % (auto) 0.0 Anion Gap 14 Estim Creat Clear Calc 50.3 Estimated GFR > 60 Random Glucose 110 Calcium 9.8 D Phosphorus 2.6 L Magnesium 2.1 Assessment and Plan (1) Primary polydipsia: Status: Acute (2) Hypokalemia: Status: Acute (3) Acute hyponatremia: Status: Acute Plan 78-year-old female patient with past medical history significant for hypothyroidism/hypertension, hyperlipidemia, prior colon cancer admitted to ICU for hyponatremia with a sodium of 111, patient treated with IV normal saline 75 mL/hours sodium gradually improved to 122 today therefore downgraded to [facility] on IV normal saline 50 mL/hour patient noted to have mild hypokalemia that is being repleted. Acute symptomatic Hyponatremia likely due to excessive water intake and agravated by chlorthalidone -stopped chlorthalidone -has been on urea powder 15 twice daily, increased to 30 bid yesterday, sodium up to 127 from 121, holding urea powder and discuss with Nephro -continue water restriction -BMP daily Acute hypOkalemia, corrected and resolved. Hypertension , continue losartan, add Norvasc if peristently high Hypothyroidism continue Synthroid Full code need for inpatient: severe hyponatremia needing close monitoring and frequent lab draws Quality Stroke Does the patient have a stroke diagnosis?: No VTE Prior VTE?: No VTE Risk Level:: Medical - moderate - high VTE Device Contraindication: N/A - Device Ordered VTE Drug Contraindication: N/A - Med Ordered
[2024-05-04] MEDS: Urea 15 GM POWDER PO ×2 (12:22→20:09)
[2024-05-04] MEDS: Mirtazapine 7.5 MG TABLET PO (20:09)
[2024-05-05 03:09] VITALS: BP 122/58; PULSE 88; RESP 20; TEMP 36.4; O2SAT 96
[2024-05-05] MEDS: Levothyroxine Sodium 25 MCG TABLET PO (05:33)
[2024-05-05] MEDS: Omeprazole 40 MG CAPSULE.DR PO (05:33)
[2024-05-05 06:00] VITALS: BMI 28.4
[2024-05-05 07:04] LABS: MANUAL DIFF FLAG NO
[2024-05-05] MEDS: Fluticasone/Vilanterol 100/25 BLST.W.DEV 1 PUFF INHALE (07:05)
[2024-05-05 07:07] VITALS: PULSE 78; RESP 16; O2SAT 91
[2024-05-05 07:07] LABS: Basophils Absolute Auto 0.1 X10*3/uL (0.0-0.2); Basophils Percent Auto 0.4 % (0-2); Eosinophils Absolute Auto 0.4 X10*3/uL (0.0-0.4); Eosinophils Percent Auto 3.3 % (0-4); Hematocrit 32.5 % (37.0-47.0); Hemoglobin 10.7 g/dl (12.0-16.0); Imm Gran Abs Auto 0.07 X10*3/uL (0.00-0.03); Imm Gran Pct Auto 0.6 % (0.0-0.4); Lymphocytes Absolute Auto 2.7 X10*3/uL (1.2-4.9); Lymphocytes Percent Auto 23.7 % (20-40); Mean Corpuscular HGB Conc 32.9 g/dl (31.0-35.0); Mean Corpuscular Volume 79.1 fL (80.0-98.0); Mean Platelet Volume 10.7 fL (9.4-12.3); Monocytes Absolute Auto 0.8 X10*3/uL (0.1-1.2); Monocytes Percent Auto 7.3 % (2-11); Neutrophils Absolute Auto 7.2 x10*3/uL (2.0-8.3); Neutrophils Percent Auto 64.7 % (45-73); Platelet Count 203 X10*3/uL (160-400); Red Blood Count 4.11 X10*6/uL (4.20-5.50); Red Cell Distribution Width 14.8 % (11.0-16.0); White Blood Count 11.2 X10*3/uL (4.8-10.8)
[2024-05-05 07:20] LABS: Anion Gap 12 (12-20); Blood Urea Nitrogen 57 mg/dL (9-16); Calcium 9.7 mg/dL (8.4-10.2); Carbon Dioxide 28 mmol/L (22-29); Chloride 93 mmol/L (96-108); Creatinine Clr Calc Pharmacy 42.8; Estimated Glomerular Filt Rate > 60; Glucose Random 105 mg/dL (60-115); Magnesium 1.9 mg/dL (1.6-2.6); Phosphorus 2.5 mg/dL (2.7-4.5); Potassium 3.8 mmol/L (3.3-5.1); Sodium 129 mmol/L (135-145)
[2024-05-05 07:44] VITALS: BP 107/59; PULSE 80; RESP 16; TEMP 36.3; O2SAT 99
[2024-05-05] MEDS: Aspirin Enteric Coated 81 MG TABLET.DR PO (08:46)
[2024-05-05] MEDS: Enoxaparin Sodium 40 MG/0.4 ML SYRINGE SUBCUT (08:46)
[2024-05-05] MEDS: Calcium Oyster Shell Elemental 500 MG TABLET PO (08:46)
[2024-05-05] MEDS: Urea 15 GM POWDER PO (08:46)
[2024-05-05] MEDS: Cholecalciferol (Vitamin D3) 25 MCG TABLET 50 MCG PO (08:47)
[2024-05-05] MEDS: Losartan Potassium 50 MG TABLET 100 MG PO (08:47)
[2024-05-05] MEDS: Milk of Magnesia 30 ML ORAL.SUSP PO (08:51)
--- NOTE | 2024-05-05 10:27 | P.HPHOSP_ITS ---
History of Present Illness Date of Service: 05/05/24 Chief Complaint: confusion admission hpi Chief Complaint: Dizziness ?The patient is a 78-year-old female with a past medical history of hypertension, hypothyroidism, hyperlipidemia,? iron-deficiency anemia, history of colon cancer and depression who presented to the emergency department for evaluation of dizziness and weakness.? Patient reported not feeling well in the past 5 days, she reports decreased appetite, drinking lots of water despite not eating much and frequent urination. ?On arrival to the emergency department patient was hypertensive? to systolic of 200s, ? alert and oriented x3 can only reporting mild dizziness. Laboratory data was significant for serum sodium of 111, potassium 2.6 and chloride 72 Imaging: ?Abdominal CT with no acute findings Patient takes a combination of losartan with hydrochlorothiazide, zolpidem and no loop diuretics,? ED provider consulted Nephrology who advised for normal saline 75 mL/hour.? ?Patient admitted to ICU for hemodynamic monitoring acute hyponatremia Hospital course: Hyponatremia: 78-year-old female patient with a past medical history significant for hypothyroidism, hypertension, hyperlipidemia, and prior colon cancer, was admitted to the ICU for hyponatremia with a sodium level of 111. The hyponatremia was primarily attributed to polydipsia and the use of Chlorthalidone. The patient was treated with IV normal saline , and her sodium level gradually improved to 122. She was started on urea powder along with water restriction, and her sodium level has steadily risen to 129, up from 127 yesterday. Chlorthalidone was discontinued. She has been advised to adhere to water restriction and will continue on urea powder, with follow-up by nephrology on an outpatient basis. Her metabolic encephalopathy due to hyponatremia has resolved, and she is presently back at her baseline. Metabolic encephalopathy due to above: resolved. Acute hypokalemia :was corrected and has resolved. Hypertension: Continue Losartan. Blood pressure is on the lower side, so Chlorthalidone has been stopped. Hypothyroidism: Continue Synthroid. Poor appetite: Remeron was added with good effect, also helping her sleep. [facility] Medical History FH: cholecystectomy Prediabetes Allergic rhinitis Depression Iron deficiency anemia Colon cancer Insomnia High cholesterol HTN (hypertension) Asthma Family History Other No family history of cancer Surgical History H/O resection of liver H/O right hemicolectomy H/O: hysterectomy H/O colonoscopy History of surgery of liver Social History Household Members: Family and Caregiver Housing: House Are you a primary account executive healthcare to a significant other at home: No Do you presently have visiting nurse or other home services: Yes (pt son is MANAGER [employer]STRU[employer]) Alcohol intake: never Comment: Family member bedside Patient Tobacco Use Status: Never used Tobacco Smoked in Last 30 Days: No Use of substances other than those prescribed or required for medical reasons: No Currently Displaying Signs/Symptoms of Drug Intoxication Withdrawal: No Have you been hit, kicked, punched, or otherwise hurt by someone within the past year? If so, by whom?: No Is there a partner from a previous relationship who is making you feel unsafe now?: No Are you made to feel afraid or neglected: No Advance Directives: Yes Advance Directives on File: Yes Advance Directives Date on File: 02/04/22 Do you have a plan to hurt others: No Plan Recently lost weight without trying: Unsure Patient : No Poor oral hygiene: No service: No Current occupational status: disabled Meds Allergies Allergy/AdvReac Type Severity Reaction Status Date / Time No Known Allergies Allergy Verified 04/30/24 17:00 Active Medications: Current Medications Aspirin (Aspirin Enteric Coated 81 Mg Tablet.) 81 mg PO DAILY [facility] Last Admin: 05/05/24 08:46 Dose: 81 mg Calcium Carbonate (Calcium Oyster Shell Elemental 500 Mg Tablet) 500 mg PO DAILY [facility] Last Admin: 05/05/24 08:46 Dose: 500 mg Enoxaparin Sodium (Enoxaparin Sodium 40 Mg/0.4 Ml Syringe) 40 mg SUBCUT Q24H [facility] Last Admin: 05/05/24 08:46 Dose: 40 mg Fluticasone/Vilanterol (Fluticasone/Vilanterol 100/25 Blst.W.Dev) 1 puff INHALE RDAILY [facility] Last Admin: 05/05/24 07:05 Dose: 1 puff Levothyroxine Sodium (Levothyroxine Sodium 25 Mcg Tablet) 25 mcg PO DAILY@0600 [facility] Last Admin: 05/05/24 05:33 Dose: 25 mcg Losartan Potassium (Losartan Potassium 50 Mg Tablet) 100 mg PO DAILY [facility]; Protocol Last Admin: 05/05/24 08:47 Dose: 100 mg Magnesium Hydroxide (Milk Of Magnesia 30 Ml Oral.Susp) 30 ml PO DAILY PRN PRN Reason: Constipation Last Admin: 05/05/24 08:51 Dose: 30 ml Mirtazapine (Mirtazapine 7.5 Mg Tablet) 7.5 mg PO BEDTIME [facility] Last Admin: 05/04/24 20:09 Dose: 7.5 mg Omeprazole (Omeprazole 40 Mg Capsule.Dr) 40 mg PO DAILY@0630 [facility] Last Admin: 05/05/24 05:33 Dose: 40 mg Polyethylene Glycol (Polyethylene Glycol 3350 17 Gm Powd.Pack) 17 gm PO DAILY PRN PRN Reason: Constipation Urea (Urea 15 Gm Powder) 15 gm PO BID [facility] Last Admin: 05/05/24 08:46 Dose: 15 gm Vitamin D (Cholecalciferol (Vitamin D3) 25 Mcg Tablet) 50 mcg PO DAILY [facility] Last Admin: 05/05/24 08:47 Dose: 50 mcg Home Medications ?Medication ?Instructions ?Recorded ?Confirmed ?Last Taken ?Type aspirin 81 mg tablet,delayed 1 tab PO DAILY 08/10/20 05/01/24 04/29/24 History release cholecalciferol (vitamin D3) 50 1 cap PO DAILY 08/10/20 05/01/24 04/29/24 History mcg (2,000 unit) capsule (Vitamin D3) fluticasone propionate 115 2 puff inhalation BID 08/10/20 05/01/24 04/29/24 History mcg-salmeterol 21 mcg/actuation HFA inhaler (Advair HFA) omeprazole 40 mg capsule,delayed 1 cap PO DAILY 08/10/20 05/01/24 04/29/24 History release zolpidem 5 mg tablet 1 tab PO BEDTIME PRN Insomnia 08/10/20 05/01/24 Unknown History calcium carbonate 500 mg PO DAILY 05/01/24 05/01/24 04/29/24 History levothyroxine 25 mcg tablet 25 mcg PO DAILY 05/01/24 05/01/24 04/30/24 History losartan 100 mg tablet 100 mg PO DAILY 05/01/24 05/01/24 04/30/24 History oxycodone 5 mg tablet 5 mg PO BID PRN severe pain 05/01/24 05/01/24 Unknown History Physical Exam 2 Vital Signs and Narrative: Vital Signs: Last Vital Signs Temp 97.3 F 05/05/24 07:44 Pulse 80 05/05/24 07:44 Resp 16 05/05/24 07:44 BP 107/59 L 05/05/24 07:44 Pulse Ox 99 05/05/24 07:44 O2 Del Method Room Air 05/05/24 07:44 BMI result Body Mass Index 28.4 Const: Other: General: AO X 3, no acute distress Resp: CTA bilateral CVS: S1,S2,RRR GI: +BS, NT, no distention Skin: No rash Neuro: motor grossly intact Psych: appropriate affect Results Labs 05/05/24 06:31 05/05/24 06:31 Labs: Laboratory Results - last 24 hr 05/05/24 06:31 MCV 79.1 L MCH 26.0 L MCHC 32.9 RDW 14.8 Plt Count 203 MPV 10.7 Immature Gran % (Auto) 0.6 H Neut % (Auto) 64.7 Lymph % (Auto) 23.7 [place] % (Auto) 7.3 Eos % (Auto) 3.3 Baso % (Auto) 0.4 Lymph # (Auto) 2.7 [place] # (Auto) 0.8 Eos # (Auto) 0.4 Baso # (Auto) 0.1 Abs Immat Gran (auto) 0.07 H Absolute Neuts (auto) 7.2 Absolute Nucleated RBC 0.000 Nucleated RBC % (auto) 0.0 Anion Gap 12 Estim Creat Clear Calc 42.8 Estimated GFR > 60 Random Glucose 105 Calcium 9.7 Phosphorus 2.5 L Magnesium 1.9 Quality Stroke Does the patient have a stroke diagnosis?: No VTE Prior VTE?: No VTE Risk Level:: Medical - moderate - high VTE Device Contraindication: N/A - Device Ordered VTE Drug Contraindication: N/A - Med Ordered
--- NOTE | 2024-05-05 10:43 | MHC.CM.PN ---
Patient has been medically cleared for dc to home today, self care;([facility] services should resume as before).CM met with Patient and her Daughter/HCP/[facility] and addressed IMM with them; original was given to Patient and a copy has been placed on the chart). [facility] will transport to home.
--- NOTE | 2024-05-08 07:29 | PM.DS ---
DS: Providers Provider Date of Service: 05/05/24 Date of admission: 04/30/24 23:25 Primary care physician: [facility] DS: Diagnosis Discharge Diagnosis (1) Acute hyponatremia: Status: Acute (2) Hypokalemia: Status: Acute DS: Summary Hospital Course Hospital Course: Chief Complaint: Dizziness ?The patient is a 78-year-old female with a past medical history of hypertension, hypothyroidism, hyperlipidemia,? iron-deficiency anemia, history of colon cancer and depression who presented to the emergency department for evaluation of dizziness and weakness.? Patient reported not feeling well in the past 5 days, she reports decreased appetite, drinking lots of water despite not eating much and frequent urination. ?On arrival to the emergency department patient was hypertensive? to systolic of 200s, ? alert and oriented x3 can only reporting mild dizziness. Laboratory data was significant for serum sodium of 111, potassium 2.6 and chloride 72 Imaging: ?Abdominal CT with no acute findings Patient takes a combination of losartan with hydrochlorothiazide, zolpidem and no loop diuretics,? ED provider consulted Nephrology who advised for normal saline 75 mL/hour.? ?Patient admitted to ICU for hemodynamic monitoring acute hyponatremia Hospital course: Hyponatremia: 78-year-old female patient with a past medical history significant for hypothyroidism, hypertension, hyperlipidemia, and prior colon cancer, was admitted to the ICU for hyponatremia with a sodium level of 111. The hyponatremia was primarily attributed to polydipsia and the use of Chlorthalidone. The patient was treated with IV normal saline , and her sodium level gradually improved to 122. She was started on urea powder along with water restriction, and her sodium level has steadily risen to 129, up from 127 yesterday. Chlorthalidone was discontinued. She has been advised to adhere to water restriction and will continue on urea powder, with follow-up by nephrology on an outpatient basis. Her metabolic encephalopathy due to hyponatremia has resolved, and she is presently back at her baseline. Metabolic encephalopathy due to above: resolved. Acute hypokalemia :was corrected and has resolved. Hypertension: Continue Losartan. Blood pressure is on the lower side, so Chlorthalidone has been stopped. Hypothyroidism: Continue Synthroid. Poor appetite: Remeron was added with good effect, also helping her sleep. Time Attestation Discharge Coordination Time (in mins): 45 Quality: Safe Use of Opioids Does Pt have an Active Cancer Diagnosis on the Problem List?: No Quality: Stroke Does the patient have a stroke diagnosis?: No Physical Exam Vital Signs: Vital Signs: Last Vital Signs Temp 97.3 F 05/05/24 07:44 Pulse 80 05/05/24 07:44 Resp 16 05/05/24 07:44 BP 107/59 L 05/05/24 07:44 Pulse Ox 99 05/05/24 07:44 O2 Del Method Room Air 05/05/24 07:44 BMI result Body Mass Index 28.4 General: AO X 3, no acute distress Resp: CTA bilateral CVS: S1,S2,RRR GI: +BS, NT, no distention Skin: No rash Neuro: motor grossly intact Psych: appropriate affect Discharge Plan Discharge Anticipated Discharge Date/Time: 05/05/24 10:15 Patient Disposition: Home, Self-Care Discharge Diagnosis: Acute Hyponatremia Referrals: Carmine Haskins MD [Physician] - 1 Week Center,[facility] [Primary Care Provider] - 1 Week Discharge Medications: New mirtazapine 7.5 mg Tablet 7.5 mg PO BEDTIME Qty: 90 0RF urea 15 gram powder in packet 1 packet PO BID Qty: 14 0RF Continued ferrous sulfate 325 mg (65 mg iron) Tablet 325 mg PO BID Qty: 60 6RF omeprazole 40 mg capsule,delayed release(DR/EC) 1 cap PO DAILY fluticasone propion-salmeterol [Advair HFA] 115-21 mcg/actuation HFA aerosol inhaler 2 puff inhalation BID aspirin 81 mg tablet,delayed release (DR/EC) 1 tab PO DAILY zolpidem 5 mg tablet 1 tab PO BEDTIME PRN (Reason: Insomnia) cholecalciferol (vitamin D3) [Vitamin D3] 50 mcg (2,000 unit) capsule 1 cap PO DAILY calcium carbonate 500 mg calcium (1,250 mg) tablet 500 mg PO DAILY losartan 100 mg tablet 100 mg PO DAILY oxycodone 5 mg tablet 5 mg PO BID PRN (Reason: severe pain) levothyroxine 25 mcg tablet 25 mcg PO DAILY Discontinued chlorthalidone 25 mg tablet 25 mg PO DAILY Discharge Orders: Discharge Order (Routine); Ordered 05/05/24 Ordered By: Zak Caballero Diet: Advance to usual diet Activity on Discharge: As tolerated Stand Alone Forms: Patient Portal Discharge page Print Language: Polish Care Plan Goals: recovery from low sodium level Health Concerns: hyponatremia polydipsia (excess water drinking) Plan of Treatment: take Urea powder as recommended Follow up with Kidney Doctor (Dr. Lou) Assessment: see above Discharge Date/Time: 05/05/24 12:00
== END 2024-05-05 12:00 | disposition home or self-care (01) | DRG 640 ==
LOC: HO.ED 22:55 → HO.EDOVER 23:33 → HO.ICU 23:34 → HO.IMC 05-02 11:12
PROVIDERS: Internal Medicine Critical Care Medicine; Physician Assistant; Physician Assistant Medical; Admitting Provider Registered Nurse Community Health; Emergency Provider Internal Medicine; PCP Registered Nurse; Visit Provider Internal Medicine
DX: E87.1 Hypo-osmolality and hyponatremia (principal); G93.41 Metabolic encephalopathy; I10 Essential (primary) hypertension; R63.1 Polydipsia; T50.2X5A Adverse effect of carbonic-anhydrase inhibitors, benzothiadiazides and other diuretics, initial encounter; E03.9 Hypothyroidism, unspecified; E87.6 Hypokalemia; E78.5 Hyperlipidemia, unspecified; Z20.822 Contact with and (suspected) exposure to COVID-19; Z85.038 Personal history of other malignant neoplasm of large intestine; Z79.51 Long term (current) use of inhaled steroids; Z79.82 Long term (current) use of aspirin; Z79.890 Hormone replacement therapy; Z79.899 Other long term (current) drug therapy
CPT/HCPCS: 0241U; 36415; 74176; 80048; 80076; 81001; 82570; 83690; 83735; 83930; 83935; 84100; 84133; 84300; 84436; 84439; 84443; 84484; 85025; 93005; 94640; 99285; C1758; J1650; J2597; J3475

== ENCOUNTER → 2024-04-30 16:58 | Outpatient (BNV) | payer OTHER, SELFPAY | PROVIDERS: Admitting Provider Registered Nurse Community Health; Emergency Provider Internal Medicine; Visit Provider Internal Medicine Cardiovascular Disease | DX: I47.10 Supraventricular tachycardia, unspecified (principal) | CPT/HCPCS: 93010 ==

== ENCOUNTER → 2024-04-30 23:25 | Outpatient (BNV) | payer OTHER, SELFPAY | PROVIDERS: Admitting Provider Registered Nurse Community Health; Emergency Provider Internal Medicine; Visit Provider Registered Nurse Community Health | DX: E87.1 Hypo-osmolality and hyponatremia (principal); R63.1 Polydipsia; F54 Psychological and behavioral factors associated with disorders or diseases classified elsewhere; E87.6 Hypokalemia | CPT/HCPCS: 99291 ==

== ENCOUNTER → 2024-04-30 23:25 | Outpatient (BNV) | payer OTHER, SELFPAY | PROVIDERS: Admitting Provider Registered Nurse Community Health; Emergency Provider Internal Medicine; Visit Provider Internal Medicine Hypertension Specialist | DX: E87.1 Hypo-osmolality and hyponatremia (principal); T50.2X5A Adverse effect of carbonic-anhydrase inhibitors, benzothiadiazides and other diuretics, initial encounter; E87.6 Hypokalemia | CPT/HCPCS: 99223; 99232 ==

== ENCOUNTER → 2024-04-30 23:25 | Outpatient (BNV) | payer OTHER, SELFPAY | PROVIDERS: Admitting Provider Registered Nurse Community Health; Emergency Provider Internal Medicine; Visit Provider Hospitalist | DX: E87.1 Hypo-osmolality and hyponatremia (principal); E87.6 Hypokalemia | CPT/HCPCS: 99232; 99239; 99499 ==

== ENCOUNTER 2024-05-16 15:24 | Outpatient (AMB) | payer OTHER, SELFPAY ==
--- NOTE | 2024-05-16 15:26 | HO.NEPHOV ---
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 The hyponatremia was primarily attributed to polydipsia and the use of Chlorthalidone. The patient was treated with IV normal saline , and her sodium level gradually improved to 122. She was started on urea powder along with water restriction, and her sodium level has steadily risen to 129. Chlorthalidone was discontinued. She has been advised to adhere to water restriction. Her metabolic encephalopathy due to hyponatremia has resolved, and she is presently back at her baseline. She did not have any new systemic complaint atthe time of this office visit [facility] Medical History (Updated 05/20/24 @ 09:01 by Carmine Haskins MD) FH: cholecystectomy Prediabetes Allergic rhinitis Depression Iron deficiency anemia Colon cancer Insomnia High cholesterol HTN (hypertension) Asthma Surgical History H/O resection of liver H/O right hemicolectomy H/O: hysterectomy H/O colonoscopy History of surgery of liver Family History Other No family history of cancer Social History Household Members: Family and Caregiver Housing: House Are you a primary senior care assistant to a significant other at home: No Do you presently have visiting nurse or other home services: Yes (pt son is HIGH SCHOOL SOCIAL STUDIES TEACHER) Alcohol intake: never Comment: Family member bedside Patient Tobacco Use Status: Never used Tobacco Advance Directives Date on File: 02/04/22 service: No Current occupational status: disabled Review of Systems Const All systems reviewed & are unremarkable except as noted in HPI and below Physical Exam Vital Signs: Last Vital Signs BP 150/64 H 05/16/24 15:28 BMI result Body Mass Index 25.7 Const General: comfortable and no acute distress Orientation/consciousness: patient oriented x3 HEENT Head: Yes normocephalic Mouth: Normal oral and palatal mucosa present Eyes EOM: EOMs intact bilaterally Neck Neck: Yes supple Resp Auscultation: clear to auscultation bilaterally Cardio Jugular venous distension: no JVD Rate: regular rate GI Palpation (GI): Soft to palpation Auscultation: normal bowel sounds General: Yes no CVA tenderness Back/Spine/Pelvis Back: no CVA tenderness Skin General skin exam: no rashes or lesions noted Neuro General: patient oriented x3 and moves all extremities Extrem General: Yes no pedal edema Results Reviewed Nephrology Results: Hgb 10.7 g/dl (12.0-16.0) L 05/05/24 WBC 11.2 X10*3/uL (4.8-10.8) H 05/05/24 Plt Count 203 X10*3/uL (160-400) 05/05/24 Sodium 140 mmol/L (135-145) 05/19/24 Potassium 4.1 mmol/L (3.3-5.1) 05/19/24 Chloride 103 mmol/L (96-108) 05/19/24 Carbon Dioxide 25 mmol/L (22-29) 05/19/24 BUN 13 mg/dL (9-16) 05/19/24 Creatinine 0.74 mg/dL (0.5-1.4) 05/19/24 Calcium 10.2 mg/dL (8.4-10.2) 05/19/24 Phosphorus 2.5 mg/dL (2.7-4.5) L 05/05/24 Urine Protein Negative mg/dL (Neg-Trace) 04/30/24 Urine Creatinine 42.99 mg/dL 04/30/24 Assessment & Plan Assessment & Plan (1) Acute hyponatremia: Code(s): E87.1 - Hypo-osmolality and hyponatremia Category: Medical (2) HTN (hypertension): Code(s): I10 - Essential (primary) hypertension Category: Medical Qualifiers: Hypertension type: primary hypertension Qualified Code(s): I10 - Essential (primary) hypertension Plan H/O severe hyponatremia with hypokalemia due to use of thiazide Increase in free water intake could have contributed to the worsening hyponatremia at that time. Thyroid well controlled; Sodium appropriately corrected; No weakness/ mentation issues DO NOT TAKE THIAZIDE DIURETICS; Blood pressure at goal. Renal function at baseline Did not make any medication changes today. All questions answered; F/U given Orders: Orders Blood Urea Nitrogen 05/19/24 E87.1 - Hypo-osmolality and hyponatremia Calcium 05/19/24 E87.1 - Hypo-osmolality and hyponatremia Immunofixation Pnl, Serum 05/19/24 E87.1 - Hypo-osmolality and hyponatremia Cortisol Random 05/19/24 E87.1 - Hypo-osmolality and hyponatremia Sodium Urine Random 05/19/24 E87.1 - Hypo-osmolality and hyponatremia Osmolality Urine 05/19/24 E87.1 - Hypo-osmolality and hyponatremia Creatinine 05/19/24 E87.1 - Hypo-osmolality and hyponatremia Electrolytes 05/19/24 E87.1 - Hypo-osmolality and hyponatremia Coding Level of Care Code Est Pt Level 4 (49434) Diagnoses Acute hyponatremia E87.1 Primary hypertension I10 Hypertension type: primary hypertension
[2024-05-16 15:28] VITALS: BP 150/64; BMI 25.7
== END 2024-05-16 16:03 | disposition home or self-care (01) ==
LOC: HO.HKA 15:24
PROVIDERS: PCP Registered Nurse; Visit Provider Internal Medicine Nephrology
DX: E87.1 Hypo-osmolality and hyponatremia (principal); I10 Essential (primary) hypertension
CPT/HCPCS: 99214

== ENCOUNTER → 2024-05-16 15:24 | Outpatient (BNVA) | payer OTHER, SELFPAY | PROVIDERS: PCP Registered Nurse; Visit Provider Internal Medicine Nephrology | DX: E87.1 Hypo-osmolality and hyponatremia (principal); I10 Essential (primary) hypertension | CPT/HCPCS: 99212 ==

== ENCOUNTER 2024-05-19 10:36 | Outpatient (REF) | payer OTHER, SELFPAY ==
[2024-05-19 12:21] LABS: Anion Gap 16 (12-20); Blood Urea Nitrogen 13 mg/dL (9-16); Calcium 10.2 mg/dL (8.4-10.2); Carbon Dioxide 25 mmol/L (22-29); Chloride 103 mmol/L (96-108); Estimated Glomerular Filt Rate > 60; Potassium 4.1 mmol/L (3.3-5.1); Sodium 140 mmol/L (135-145)
[2024-05-19 12:42] LABS: Cortisol Random 13.6 ug/dL
[2024-05-19 14:43] LABS: Osmolality Urine 473 mosm/kg (373-1093)
[2024-05-22 14:58] LABS: IgA 238 mg/dL (70-320); IgG 981 mg/dL (600-1540); IgM 150 mg/dL (50-300)
== END 2024-05-19 10:37 | disposition home or self-care (01) ==
LOC: HO.LAB 10:36
PROVIDERS: Absent Provider Internal Medicine Nephrology; PCP Registered Nurse; Visit Provider Registered Nurse
DX: E87.1 Hypo-osmolality and hyponatremia (principal)
CPT/HCPCS: 36415; 80051; 82310; 82533; 82565; 82784; 83935; 84300; 84520; 86334

== ENCOUNTER 2024-06-27 10:04 | Outpatient (AMB) | payer OTHER, SELFPAY ==
[2024-06-27 10:10] VITALS: BP 160/80; PULSE 114; O2SAT 97; BMI 25.1
--- NOTE | 2024-06-27 10:10 | HO.NEPHOV ---
Vital Signs 06/27/24 10:10 Height 4 ft 8 in Weight 112 lb BMI 25.1 BP 160/80 H Blood Pressure Location Rt brachial Position Sitting Pulse 114 H Pulse Source Pulse Oximeter Pulse Oximetry (%) 97 Oxygen Delivery Method Room Air Intake Visit Reasons: Acute hyponatremia- Conf Stylist Assistant Required: Yes Stylist Assistant Name: Abelardo [id number] Accompanied by: Self / Same As Patient Allergies No Known Allergies Allergy (Verified 06/27/24 10:12) HPI Comments Details: 78-year-old female patient with a past medical history significant for hypothyroidism, hypertension, hyperlipidemia, and prior colon cancer who recently was admitted to the ICU for hyponatremia with a sodium level of 111. The hyponatremia was primarily attributed to polydipsia and the use of Chlorthalidone. The patient was treated with IV normal saline , and her sodium level gradually improved to 122. She was started on urea powder along with water restriction, and her sodium level has steadily risen to 129. Chlorthalidone was discontinued. She has been advised to adhere to water restriction. Her metabolic encephalopathy due to hyponatremia has resolved, and she is presently back at her baseline. She did not have any new systemic complaint at he time of this office visit [facility] Medical History (Updated 05/20/24 @ 09:01 by Carmine Haskins MD) FH: cholecystectomy Prediabetes Allergic rhinitis Depression Iron deficiency anemia Colon cancer Insomnia High cholesterol HTN (hypertension) Asthma Surgical History H/O resection of liver H/O right hemicolectomy H/O: hysterectomy H/O colonoscopy History of surgery of liver Family History Other No family history of cancer Social History Household Members: Family and Caregiver Housing: House Are you a primary director of managed care to a significant other at home: No Do you presently have visiting nurse or other home services: Yes (pt son is AUTOMOTIVE UPHOLSTERER) Alcohol intake: never Comment: Family member bedside Patient Tobacco Use Status: Never used Tobacco Advance Directives Date on File: 02/04/22 service: No Current occupational status: disabled Review of Systems Const All systems reviewed & are unremarkable except as noted in HPI and below Physical Exam Vital Signs: Last Vital Signs Pulse 114 H 06/27/24 10:10 BP 160/80 H 06/27/24 10:10 Pulse Ox 97 06/27/24 10:10 Oxygen Delivery Method Room Air 06/27/24 10:10 BMI result Body Mass Index 25.1 Const General: comfortable and no acute distress Orientation/consciousness: patient oriented x3 HEENT Head: Yes normocephalic Mouth: Normal oral and palatal mucosa present Eyes EOM: EOMs intact bilaterally Neck Neck: Yes supple Resp Auscultation: clear to auscultation bilaterally Cardio Jugular venous distension: no JVD Rate: regular rate GI Palpation (GI): Soft to palpation Auscultation: normal bowel sounds General: Yes no CVA tenderness Back/Spine/Pelvis Back: no CVA tenderness Skin General skin exam: no rashes or lesions noted Neuro General: patient oriented x3 and moves all extremities Extrem General: Yes no pedal edema Results Reviewed Nephrology Results: Hgb 10.7 g/dl (12.0-16.0) L 05/05/24 WBC 11.2 X10*3/uL (4.8-10.8) H 05/05/24 Plt Count 203 X10*3/uL (160-400) 05/05/24 Sodium 140 mmol/L (135-145) 05/19/24 Potassium 4.1 mmol/L (3.3-5.1) 05/19/24 Chloride 103 mmol/L (96-108) 05/19/24 Carbon Dioxide 25 mmol/L (22-29) 05/19/24 BUN 13 mg/dL (9-16) 05/19/24 Creatinine 0.74 mg/dL (0.5-1.4) 05/19/24 Calcium 10.2 mg/dL (8.4-10.2) 05/19/24 Phosphorus 2.5 mg/dL (2.7-4.5) L 05/05/24 Urine Protein Negative mg/dL (Neg-Trace) 04/30/24 Urine Creatinine 42.99 mg/dL 04/30/24 Assessment & Plan Assessment & Plan (1) Acute hyponatremia: Code(s): E87.1 - Hypo-osmolality and hyponatremia Category: Medical (2) HTN (hypertension): Code(s): I10 - Essential (primary) hypertension Category: Medical Qualifiers: Hypertension type: primary hypertension Qualified Code(s): I10 - Essential (primary) hypertension Plan H/O severe hyponatremia with hypokalemia due to use of thiazide Increase in free water intake could have contributed to the worsening hyponatremia at that time. Thyroid well controlled; Sodium appropriately corrected; No weakness/ mentation issues DO NOT TAKE THIAZIDE DIURETICS; Blood pressure at goal at home. Renal function at baseline Did not make any medication changes today. All questions answered; F/U given Coding Level of Care Code Est Pt Level 4 (91398) Diagnoses Acute hyponatremia E87.1 Primary hypertension I10 Hypertension type: primary hypertension
== END 2024-06-27 10:40 | disposition home or self-care (01) ==
PROVIDERS: PCP Registered Nurse; Visit Provider Internal Medicine Nephrology
DX: E87.1 Hypo-osmolality and hyponatremia (principal); I10 Essential (primary) hypertension
CPT/HCPCS: 99214

== ENCOUNTER → 2024-06-27 10:04 | Outpatient (BNVA) | payer OTHER, SELFPAY | PROVIDERS: PCP Registered Nurse; Visit Provider Internal Medicine Nephrology | DX: E87.1 Hypo-osmolality and hyponatremia (principal); E78.5 Hyperlipidemia, unspecified; E03.9 Hypothyroidism, unspecified; I10 Essential (primary) hypertension | CPT/HCPCS: 99212 ==

== ENCOUNTER 2024-09-26 10:22 | Outpatient (AMB) | payer OTHER, SELFPAY ==
--- NOTE | 2024-09-26 10:31 | HO.NEPHOV_ITS ---
Vital Signs 09/26/24 10:32 Height 4 ft 8 in Weight 117 lb 2 oz BMI 26.3 BP 146/70 H Blood Pressure Location Lt brachial Position Sitting Pulse 69 Pulse Source Pulse Oximeter Intake Visit Reasons: 3 mon follow up-[facility] Filler Leaf Cutter Long Required: Yes Filler Leaf Cutter Long Language: Biodiesel Engine Specialist Services: Filler Leaf Cutter Long Present Filler Leaf Cutter Long Name: Esdras [id number] Accompanied by: Self / Same As Patient Allergies No Known Allergies Allergy (Verified 09/26/24 10:32) HPI Comments Details: 78-year-old female patient with a past medical history significant for hypothyroidism, hypertension, hyperlipidemia, and prior colon cancer who recently has H/O hyponatremia with a sodium level of 111, which has been treated and resolved. She denied headache, double vision, nausea, vomiting, diarrhea, dizziness, chest pain, SOB, edema or any new systemic complaint at he time of this office visit. She checks her BP at home and has been at goal. [facility] Medical History FH: cholecystectomy Prediabetes Allergic rhinitis Depression Iron deficiency anemia Colon cancer Insomnia High cholesterol HTN (hypertension) Asthma Surgical History H/O resection of liver H/O right hemicolectomy H/O: hysterectomy H/O colonoscopy History of surgery of liver Family History Other No family history of cancer Social History Household Members: Family and Caregiver Housing: House Are you a primary behavioral health care coordinator to a significant other at home: No Do you presently have visiting nurse or other home services: Yes (pt son is SCIENTIFIC TECHNICAL WRITER) Alcohol intake: never Comment: Family member bedside Patient Tobacco Use Status: Never used Tobacco Advance Directives Date on File: 02/04/22 service: No Current occupational status: disabled Review of Systems Const All systems reviewed & are unremarkable except as noted in HPI and below Physical Exam Vital Signs: Last Vital Signs Pulse 69 09/26/24 10:32 BP 146/70 H 09/26/24 10:32 BMI result Body Mass Index 26.3 Const General: comfortable and no acute distress Orientation/consciousness: patient oriented x3 HEENT Head: Yes normocephalic Mouth: Normal oral and palatal mucosa present Eyes EOM: EOMs intact bilaterally Neck Neck: Yes supple Resp Auscultation: clear to auscultation bilaterally Cardio Jugular venous distension: no JVD Rate: regular rate GI Palpation (GI): Soft to palpation Auscultation: normal bowel sounds General: Yes no CVA tenderness Back/Spine/Pelvis Back: no CVA tenderness Skin General skin exam: no rashes or lesions noted Neuro General: patient oriented x3 and moves all extremities Extrem General: Yes no pedal edema Results Reviewed Nephrology Results: Hgb 11.0 g/dl (12.0-16.0) L 07/22/24 WBC 7.9 X10*3/uL (4.8-10.8) 07/22/24 Plt Count 222 X10*3/uL (160-400) 07/22/24 Sodium 142 mmol/L (135-145) 07/22/24 Potassium 3.8 mmol/L (3.3-5.1) 07/22/24 Chloride 105 mmol/L (96-108) 07/22/24 Carbon Dioxide 28 mmol/L (22-29) 07/22/24 BUN 12 mg/dL (9-16) 07/22/24 Creatinine 0.74 mg/dL (0.5-1.4) 07/22/24 Calcium 9.7 mg/dL (8.4-10.2) 07/22/24 Phosphorus 2.5 mg/dL (2.7-4.5) L 05/05/24 Urine Protein Negative mg/dL (Neg-Trace) 04/30/24 Urine Creatinine 42.99 mg/dL 04/30/24 Assessment & Plan Assessment & Plan (1) HTN (hypertension): Code(s): I10 - Essential (primary) hypertension Category: Medical Qualifiers: Hypertension type: primary hypertension Qualified Code(s): I10 - Essential (primary) hypertension Plan H/O severe hyponatremia with hypokalemia due to use of thiazide- resolved Increase in free water intake could have contributed to the worsening hyponatremia at that time. Thyroid well controlled; Sodium stable; No weakness/ mentation issues DO NOT TAKE THIAZIDE DIURETICS; Blood pressure at goal at home. Renal function at baseline Did not make any medication changes today. All questions answered; F/U given Orders: Orders Protein Creatinine Ratio, Ur 6 Months I10 - Essential (primary) hypertension Creatinine 6 Months I10 - Essential (primary) hypertension Blood Urea Nitrogen 6 Months I10 - Essential (primary) hypertension Electrolytes 6 Months I10 - Essential (primary) hypertension Coding Level of Care Code Est Pt Level 4 (41980) Diagnoses Primary hypertension I10 Hypertension type: primary hypertension
[2024-09-26 10:32] VITALS: BP 146/70; PULSE 69; BMI 26.3
== END 2024-09-26 11:00 | disposition home or self-care (01) ==
PROVIDERS: PCP Registered Nurse; Visit Provider Internal Medicine Nephrology
DX: I10 Essential (primary) hypertension (principal)
CPT/HCPCS: 99214

== ENCOUNTER → 2024-09-26 10:22 | Outpatient (BNVA) | payer OTHER, SELFPAY | PROVIDERS: PCP Registered Nurse; Visit Provider Internal Medicine Nephrology | DX: I10 Essential (primary) hypertension (principal) | CPT/HCPCS: 99212 ==

== ENCOUNTER 2024-10-03 13:43 | Outpatient (REF) | payer OTHER, SELFPAY | END 2024-10-03 13:44 | disposition home or self-care (01) | LOC: HO.MAMMO 13:43 | PROVIDERS: PCP Registered Nurse; Visit Provider Registered Nurse | DX: Z12.31 Encounter for screening mammogram for malignant neoplasm of breast (principal) | CPT/HCPCS: 77063; 77067 ==

== ENCOUNTER → 2024-10-03 14:15 | Outpatient (BNV) | payer OTHER, SELFPAY | PROVIDERS: PCP Registered Nurse; Visit Provider Internal Medicine | DX: Z12.31 Encounter for screening mammogram for malignant neoplasm of breast (principal) | CPT/HCPCS: 77063; 77067 ==

== ENCOUNTER → 2024-10-27 08:41 | Outpatient (REF) | payer OTHER, SELFPAY ==
--- NOTE | 2024-10-27 08:44 | HM_ITS ---
* Total monitoring time 2 days. * Underlying rhythm is sinus with an average rate of 86/Min. * Frequent supraventricular ectopy with a burden of 17%. * Rare ventricular ectopy. * No significant pauses or high-grade AV blocks. * No patient markers or diary events. MTDD
== END ==
LOC: HO.CARD 08:41
PROVIDERS: PCP Registered Nurse; Visit Provider Registered Nurse
DX: I49.9 Cardiac arrhythmia, unspecified (principal); I47.10 Supraventricular tachycardia, unspecified
CPT/HCPCS: 93225

== ENCOUNTER → 2024-10-27 08:44 | Outpatient (BNV) | payer OTHER, SELFPAY | PROVIDERS: PCP Registered Nurse; Visit Provider Internal Medicine | DX: I47.10 Supraventricular tachycardia, unspecified (principal) | CPT/HCPCS: 93227 ==

== ENCOUNTER 2025-01-05 09:01 | Outpatient (REF) | payer OTHER, SELFPAY ==
[2025-01-05 11:23] LABS: MANUAL DIFF FLAG NO
[2025-01-05 11:35] LABS: Basophils Absolute Auto 0.1 X10*3/uL (0.0-0.2); Basophils Percent Auto 0.6 % (0-2); Eosinophils Absolute Auto 0.3 X10*3/uL (0.0-0.4); Eosinophils Percent Auto 3.1 % (0-4); Hematocrit 33.6 % (37.0-47.0); Hemoglobin 9.9 g/dl (12.0-16.0); Imm Gran Abs Auto 0.05 X10*3/uL (0.00-0.03); Imm Gran Pct Auto 0.6 % (0.0-0.4); Lymphocytes Absolute Auto 1.7 X10*3/uL (1.2-4.9); Lymphocytes Percent Auto 19.1 % (20-40); Mean Corpuscular HGB Conc 29.5 g/dl (31.0-35.0); Mean Corpuscular Volume 81.4 fL (80.0-98.0); Mean Platelet Volume 11.2 fL (9.4-12.3); Monocytes Absolute Auto 0.7 X10*3/uL (0.1-1.2); Monocytes Percent Auto 7.5 % (2-11); Neutrophils Absolute Auto 6.1 x10*3/uL (2.0-8.3); Neutrophils Percent Auto 69.1 % (45-73); Platelet Count 230 X10*3/uL (160-400); Red Blood Count 4.13 X10*6/uL (4.20-5.50); Red Cell Distribution Width 16.1 % (11.0-16.0); White Blood Count 8.8 X10*3/uL (4.8-10.8)
[2025-01-05 11:36] LABS: Basophils Percent Auto 0.4 % (0-2); Eosinophils Absolute Auto 0.3 X10*3/uL (0.0-0.4); Eosinophils Percent Auto 3.3 % (0-4); Hematocrit 32.8 % (37.0-47.0); Imm Gran Abs Auto 0.05 X10*3/uL (0.00-0.03); Imm Gran Pct Auto 0.6 % (0.0-0.4); Lymphocytes Absolute Auto 1.7 X10*3/uL (1.2-4.9); Lymphocytes Percent Auto 18.8 % (20-40); Mean Corpuscular HGB Conc 30.5 g/dl (31.0-35.0); Mean Corpuscular Hemoglobin 24.6 pg (27.0-33.0); Mean Corpuscular Volume 80.8 fL (80.0-98.0); Mean Platelet Volume 10.9 fL (9.4-12.3); Monocytes Absolute Auto 0.6 X10*3/uL (0.1-1.2); Monocytes Percent Auto 7.2 % (2-11); Neutrophils Absolute Auto 6.2 x10*3/uL (2.0-8.3); Neutrophils Percent Auto 69.7 % (45-73); Platelet Count 232 X10*3/uL (160-400); Red Blood Count 4.06 X10*6/uL (4.20-5.50); Red Cell Distribution Width 16.2 % (11.0-16.0); White Blood Count 8.9 X10*3/uL (4.8-10.8)
[2025-01-05 11:55] LABS: Estimated Average Glucose 120 mg/dL; Hemoglobin A1c % 5.8 % (<6.0)
[2025-01-05 12:31] LABS: Creatinine Urine 101.97 mg/dL; Microalbum/Creatinine Ratio Ur 24.5 ug/mg cr (<30)
[2025-01-05 12:36] LABS: TSH reflex Free T4 2.72 uIU/mL (0.32-4.0)
[2025-01-05 12:58] LABS: Alanine Aminotransferase 13 U/L (0-31); Albumin Level 3.9 g/dL (3.5-5.0); Alkaline Phosphatase 72 U/L (39-117); Anion Gap 11 (12-20); Aspartate Amino Transferase 19 U/L (5-31); Bilirubin Total 0.6 mg/dL (0.0-1.0); Blood Urea Nitrogen 17 mg/dL (9-16); Calcium 9.4 mg/dL (8.4-10.2); Carbon Dioxide 28 mmol/L (22-29); Chloride 107 mmol/L (96-108); Cholesterol 107 mg/dL (<200); Estimated Glomerular Filt Rate > 60; Glucose Random 117 mg/dL (60-115); HDL Cholesterol 43 mg/dL (>40); LDL Cholesterol Calculated 45 mg/dL (<100); Potassium 4.4 mmol/L (3.3-5.1); Sodium 142 mmol/L (135-145); Total Protein 7.4 g/dL (6.5-8.0); Triglycerides 96 mg/dL (<150)
[2025-01-05 13:05] LABS: Anion Gap 14 (12-20)
[2025-01-05 13:09] LABS: Alanine Aminotransferase 11 U/L (0-31); Albumin Level 3.9 g/dL (3.5-5.0); Alkaline Phosphatase 73 U/L (39-117); Aspartate Amino Transferase 21 U/L (5-31); Bilirubin Total 0.6 mg/dL (0.0-1.0); Blood Urea Nitrogen 17 mg/dL (9-16); Calcium 9.2 mg/dL (8.4-10.2); Carbon Dioxide 27 mmol/L (22-29); Chloride 106 mmol/L (96-108); Estimated Glomerular Filt Rate > 60; Glucose Random 117 mg/dL (60-115); Potassium 4.3 mmol/L (3.3-5.1); Sodium 143 mmol/L (135-145); Total Protein 7.3 g/dL (6.5-8.0)
[2025-01-05 13:46] LABS: Carcinoembryonic Antigen < 1.73 ng/mL
== END 2025-01-05 09:02 | disposition home or self-care (01) ==
LOC: HO.HHCL 09:01
PROVIDERS: Registered Nurse; Visit Provider Internal Medicine Medical Oncology
DX: Z00.00 Encounter for general adult medical examination without abnormal findings (principal); C18.9 Malignant neoplasm of colon, unspecified; Z13.1 Encounter for screening for diabetes mellitus
CPT/HCPCS: 36415; 80053; 80061; 82043; 82378; 82570; 83036; 84443; 85025

== ENCOUNTER 2025-07-22 08:58 | Outpatient (REF) | payer OTHER, SELFPAY ==
--- OUTSIDE RECORDS SUMMARY | 2025-07-22 09:37 | XMS_ITS | Encounter Summary ---
Author Organization [employer] Address [address] [place] [address] Care Team Providers Care Colliery Clerk Name Role Phone Karla Sheth Primary Care Provider [phone] Carmine Haskins MD Unavailable Aakash Lopez MD Unavailable [phone] Reason for Visit * Reason Onset Date Comments Med Refill 09/17/2024 Encounter Details Date Type Department Care Team (Late st Contact Info) Description 09/17/2024 Telephone [facility] [address] [place] [address] Karla Sheth FNP [address] [place], [place] [phone] Med Refill Social History Tobacco Use Types Packs/Day Years Used Date Smoking Tobacco: Never Smokeless Tobacco: Never Comments:20 years ago. 2022 Alcohol Use Standard Drinks/Week Comments Never 0 (1 standard drink = 0.6 oz pur e alcohol) Depression Answer Date Recorded Patient Health Questionnaire-9 Score 12 04/16/2024 Patient Health Questionnaire-9 Score 12 04/16/2024 Last PHQ-9: Questionnaire Data Not on file 0 04/16/2024 Housing Stability Answer Date Recorded What is your housing situati on today? I have housing today, but I am worried about losing housing in the future 04/16/[address] you li ve. Do you have problems with any of the following? Pests such as bugs, ants, or mice;No or not working smoke detectors 04/16/2024 Food Insecurity Answer Date Recorded Within the past 12 months, y ou worried that your food would run out before you got money to buy more: Never True 04/16/2024 Within the past 12 months,th e food you bought just didn't last and you didn't have enough money to get more: Never True Transportation Answer Date Recorded In the past 12 months, has l ack of transportation kept you from medical appts, meetings, work or from getting things needed for daily living? No 04/16/2024 Utilities Answer Date Recorded In the past 12 months, has t he electric, gas, oil or water company threatened to shut off services in your home? No 04/16/2024 Depression Answer Date Recorded Patient Health Questionnaire-2 Score 2 04/16/2024 Internet Access Answer Date Recorded Internet Access Q1 Yes 06/22/2024 Internet Access Q2 Not on file 06/22/2024 Comments Unknown Sex and Gender Information Value Date Recorded Sex Assigned at Female 08/21/2022 10:16 AM EDT Legal Sex Female 10:16 AM EDT Gender Identity Female 08/21/2022 10:16 AM EDT Sexual Orientation Straight 08/21/2022 10 :16 AM EDT documented as of this encounter Miscellaneous Notes * Telephone Encounter - Josesito Santamaria - 09/17/2024 11:44 AM EST TC from pt requesting medication refill. Medications needing refill : oxyCODONE (Roxicodone) 5 MG immediate release tablet To be sent to: [facility]/pharmacy #[id number] [place] [address] - [address] [place] [address] documented in this encounter Plan of Treatment Upcoming Encounters Date Type Department Care Team (Late st Contact Info) Description 07/22/2025 10:30 AM EDT Office Visit [facility] [address] [place], [place] [phone] Karla Sheth FNP [address] [place], [place] [phone] Arrived 08/11/2025 10:00 AM EDT Clinical Support [facility] [address] [place] [address] Thuy Grajeda, CHERYL [address] [place] [address] documented as of this encounter Visit Diagnoses Not on filedocumented in this encounter Additional Health Concerns Assessment Noted Time PHQ-9 Depression Total Score: 12 024 5:34 PM EDT documented as of this encounter Care Teams Colliery Clerk Relationship Specialty Start Date End Date Karla Sheth FNP [address] [place] [address] PCP - General Family Medicine 06/13/22 Carmine Haskins MD [address] [place] [address] Drive [address] [place] [id number] Nephrology 10/01/24 Aakash Lopez MD [address] [place] [id number] Hematology and Oncology 10/01/24 Ravindra Carbajal Patient Photogeologist 10/01/24 documented as of this encounter
--- OUTSIDE RECORDS SUMMARY | 2025-07-22 09:37 | XMS_ITS | Encounter Summary ---
Author Organization [employer] Address 75 [facility] 7t [place] [address] Care Team Providers Care Distillery Miller Name Role Phone Karla Sheth Primary Care Provider [phone] Carmine Haskins MD Unavailable Aakash Lopez MD Unavailable [phone] Encounter Details Date Type Department Care Team (Late st Contact Info) Description 01/19/2023 Orders Only [facility] MEDICINE [address] [place] [address] Karla Sheth FNP [address] [place], [place] [phone] Social History Tobacco Use Types Packs/Day Years Used Date Smoking Tobacco: Never Smokeless Tobacco: Never Alcohol Use Standard Drinks/Week Comments Never 0 (1 standard drink = 0.6 oz pur e alcohol) Depression Answer Date Recorded Patient Health Questionnaire-9 Score 0 12/07/2022 Depression Answer Date Recorded Patient Health Questionnaire-2 Score 0 12/07/2022 Comments Unknown Sex and Gender Information Value Date Recorded Sex Assigned at Female 08/21/2022 10:16 AM EDT Legal Sex Female 10:16 AM EDT Gender Identity Female 08/21/2022 10:16 AM EDT Sexual Orientation Straight 08/21/2022 10 :16 AM EDT COVID-19 Exposure Response Date Recorded In the last 10 days, have yo u been in contact with someone who was confirmed or suspected to have Coronavirus/COVID-19? No / Unsure 01/08/2023 10:31 AM EDT documented as of this encounter Plan of Treatment Upcoming Encounters Date Type Department Care Team (Late st Contact Info) Description 07/22/2025 10:30 AM EDT Office Visit [facility] MEDICINE [address] [place] [address] Karla Sheth FNP 505 [place] [address] Arrived 08/11/2025 10:00 AM EDT Clinical Support [facility] MED & PEDS 505 [place] [address] Thuy Grajeda, CEHRYL 505 [place], [place] [phone] documented as of this encounter Visit Diagnoses Not on filedocumented in this encounter Additional Health Concerns Assessment Noted Time PHQ-9 Depression Total Score: 0 12/07/19 10:51 AM EST documented as of this encounter Care Teams Distillery Miller Relationship Specialty Start Date End Date Karla Sheth FNP [address] [place] [address] PCP - General Family Medicine 06/13/22 Carmine Haskins MD [address] [place] [address] Nephrology 10/01/24 Aakash Lopez MD [address] [place] [address] Hematology and Oncology 10/01/24 Ravindra Carbajal Patient Monkey Breeder 10/01/24 documented as of this encounter
--- OUTSIDE RECORDS SUMMARY | 2025-07-22 09:37 | XMS_ITS | Encounter Summary ---
Author Organization [employer] Address 75 [facility] 7 [place] [address] Care Team Providers Care Crosscutter Rolled Glass Name Role Phone Karla Sheth Primary Care Provider [phone] Carmine Haskins MD Unavailable Aakash Lopez MD Unavailable [phone] Reason for Visit * Reason Onset Date Comments Med Refill 01/18/2023 Encounter Details Date Type Department Care Team (Late st Contact Info) Description 01/18/[address] [facility] MEDICINE [address] [place] [address] Karla Sheth FNP [address] [place], [place] [phone] Med Refill Social History Tobacco Use Types [...] encounter Miscellaneous Notes * Telephone Encounter - Jensen Thomas - 01/18/2023 3:26 PM EDT Tc from daughter requesting med refill Oxycodone 5 mg documented in this encounter Plan of Treatment Upcoming Encounters Date Type Department Care Team (Late st Contact Info) Description 07/22/2025 10:30 AM EDT Office Visit [facility] MEDICINE [address] [place] [address] Karla Sheth FNP 505 [place] [address] Arrived 08/11/2025 10:00 AM EDT Clinical Support [facility] MED & PEDS 505 [place] [address] Thuy Grajeda RN 505 [place] [address] documented as of this encounter Visit Diagnoses Not on filedocumented in this encounter Additional Health Concerns Assessment Noted Time PHQ-9 Depression Total Score: 0 12/07/19 23 10:51 AM EST documented as of this encounter Care Teams Crosscutter Rolled Glass Relationship Specialty Start Date End Date Karla Sheth FNP 230 [place] [address] PCP - General Family Medicine 06/13/22 Carmine Haskins MD [address] [place] [address] Nephrology 10/01/24 Aakash Lopez MD [address] [place] [address] Hematology and Oncology 10/01/24 Ravindra Carbajal Patient Delinquent Tax Collector Assistant 10/01/24 documented as of this encounter
--- OUTSIDE RECORDS SUMMARY | 2025-07-22 09:37 | XMS_ITS | Encounter Summary ---
Author Organization [employer] Address 75 [facility] 7 [place] [address] Care Team Providers Care Pharmacy Scheduler Name Role Phone Karla Sheth Primary Care Provider [phone] Carmine Haskins MD Unavailable Aakash Lopez MD Unavailable [phone] Reason for Visit * Reason Onset Date Comments Med Refill 04/19/2023 Encounter Details Date Type Department Care Team (Late st Contact Info) Description 04/19/2023 Telephone [facility] MEDICINE 230 [place] [address] Karla Sheth FNP [address] [place], [place] [phone] Med Refill Social History Tobacco Use Types [...] encounter Miscellaneous Notes * Telephone Encounter - Sanjay West - 04/19/2023 4:48 PM EDT Tc from pt requesting med refill on oxyCODONE (Roxicodone) 5 MG immediate release tablet Please sent to [facility]/pharmacy #[id number] - [place], [place] - [address] [place] [address] documented in this encounter Plan of Treatment Upcoming Encounters Date Type Department Care Team (Late st Contact Info) Description 07/22/2025 10:30 AM EDT Office Visit [facility] MEDICINE 230 [place] [address] Karla Sheth FNP 505 [place] [address] Arrived 08/11/2025 10:00 AM EDT Clinical Support [facility] MED & PEDS 505 [place] [address] Thuy Grajeda, RN 505 [place], [place] [phone] documented as of this encounter Visit Diagnoses Not on filedocumented in this encounter Additional Health Concerns Assessment Noted Time PHQ-9 Depression Total Score: 0 12/07/19 23 10:51 AM EST documented as of this encounter Care Teams Pharmacy Scheduler Relationship Specialty Start Date End Date Karla Sheth FNP 230 [place] [address] PCP - General Family Medicine 06/13/22 Carmine Haskins MD [address] [place] [address] Nephrology 10/01/24 Aakash Lopez MD [address] [place] [address] Hematology and Oncology 10/01/24 Ravindra Carbajal Patient Senior National Account Manager 10/01/24 documented as of this encounter
--- OUTSIDE RECORDS SUMMARY | 2025-07-22 09:37 | XMS_ITS | Encounter Summary ---
Author Organization [employer] Address 75 [facility] 7t [place] [address] Care Team Providers Care Duct Layer Helper Name Role Phone Karla Sheth Primary Care Provider [phone] Carmine Haskins MD Unavailable Aakash Lopez MD Unavailable [phone] Reason for Visit * Reason Onset Date Comments Med Refill 03/18/2025 Encounter Details Date Type Department Care Team (Late st Contact Info) Description 03/18/2025 Telephone [facility] MEDICINE [address] [place] [address] Karla Sheth FNP [address] [place], [place] [phone] Med Refill Social History Tobacco Use Types Packs/Day Years Used Date Smoking Tobacco: Never Smokeless Tobacco: Never Comments:20 years ago. 2022 Alcohol Use Standard Drinks/Week Comments Never 0 (1 standard drink = 0.6 oz pur e alcohol) Depression Answer Date Recorded Patient Health Questionnaire-9 Score 0 10/01/2024 Patient Health Questionnaire-9 Score 0 10/01/2024 Last PHQ-9: Questionnaire Data Not on file 1 12/02/2023 Housing Stability Answer Date Recorded What is your housing situation today? I have gudelia beauchamp 10/01/[address] you li ve. Do you have problems with any of the following? None of the above 10/01/2024 Food Insecurity Answer Date Recorded Within the [...] Date Recorded Patient Health Questionnaire-2 Score 0 10/01/2024 Internet Access Answer Date Recorded Internet Access [...] encounter Miscellaneous Notes * Telephone Encounter - Channing Huff - 03/18/2025 1:15 PM EDT TC from pt requesting medication refill. Medications needing refill : oxyCODONE (Roxicodone) 5 MG immediate release tablet To be sent to: [facility]/pharmacy #[id number] documented in this encounter Plan of Treatment Upcoming Encounters Date Type Department Care Team (Late st Contact Info) Description 07/22/2025 10:30 AM EDT Office Visit [facility] MEDICINE 230 [place] [address] Karla Sheth FNP 505 [place] [address] Arrived 08/11/2025 10:00 AM EDT Clinical Support [facility] MED & PEDS 505 [place] [address] Thuy Grajeda, CHERYL 505 [place] [address] documented as of this encounter Visit Diagnoses Not on filedocumented in this encounter Additional Health Concerns Assessment Noted Time PHQ-9 Depression Total Score: 0 10/01/20 9:35 AM EST documented as of this encounter Care Teams Duct Layer Helper Relationship Specialty Start Date End Date Karla Sheth FNP 230 [place] [address] PCP - General Family Medicine 06/13/22 Carmine Haskins MD [address] [place] [address] Nephrology 10/01/24 Aakash Lopez MD [address] [place] [address] Hematology and Oncology 10/01/24 Ravindra Carbajal Patient Marine Farmer 10/01/24 documented as of this encounter
--- OUTSIDE RECORDS SUMMARY | 2025-07-22 09:37 | XMS_ITS | Encounter Summary ---
Author Organization [employer] Address 75 [facility] 7t [place] [address] Care Team Providers Care Wealth Management Advisor Name Role Phone Karla Sheth Primary Care Provider [phone] Carmine Haskins MD Unavailable Aakash Lopez MD Unavailable [phone] Reason for Visit * Reason Onset Date Comments Med Refill 02/13/2025 Encounter Details Date Type Department Care Team (Late st Contact Info) Description 02/13/2025 Telephone [facility] MEDICINE [address] [place] [address] Karla Sheth FNP [address] [place], [place] [phone] Med Refill Social History Tobacco Use Types [...] * Telephone Encounter - Channing Huff - 02/13/2025 10:23 AM EDT TC from pt requesting medication refill. Medications needing refill : oxyCODONE (Roxicodone) 5 MG immediate release tablet To be sent to: [facility]/pharmacy #[id number] documented in this encounter Plan of Treatment Upcoming Encounters Date Type Department Care Team ([facility] st Contact Info) Description 07/22/2025 10:30 AM EDT Office Visit [facility] MEDICINE 230 [place] [address] Karla Sheth FNP 505 [place] [address] Arrived 08/11/2025 10:00 AM EDT Clinical Support [facility] MED & PEDS 505 [place] [address] Thuy Grajeda, RN 505 [place] [address] documented as of this encounter Visit Diagnoses Not on filedocumented in this encounter Additional Health Concerns Assessment Noted Time PHQ-9 Depression Total Score: 0 10/01/20 9:35 AM EST documented as of this encounter Care Teams Wealth Management Advisor Relationship Specialty Start Date End Date Karla Sheth FNP 230 [place] [address] PCP - General Family Medicine 06/13/22 Carmine Haskins MD [address] [place] [address] Nephrology 10/01/24 Aakash Lopez MD [address] [place] [address] Hematology and Oncology 10/01/24 Ravindra Carbajal Patient User Interface Engineer 10/01/24 documented as of this encounter
--- OUTSIDE RECORDS SUMMARY | 2025-07-22 09:37 | XMS_ITS | Encounter Summary ---
Author Organization [employer] Address [address] [facility] 7t [place] [address] Care Team Providers Care Silk Blocker Name Role Phone Karla Sheth Primary Care Provider [phone] Carmine Haskins MD Unavailable Aakash Lopez MD Unavailable [phone] Reason for Visit * Reason Onset Date Comments Med Refill 09/11/2023 Encounter Details Date Type Department Care Team (Late st Contact Info) Description 09/11/2023 Telephone [facility] MEDICINE 230 [place] [address] Karla Sheth FNP [address] [place], [place] [phone] Med Refill Social History Tobacco Use Types Packs/Day Years Used Date Smoking Tobacco: Never Smokeless Tobacco: Never Comments:20 years ago. 2022 Alcohol Use Standard Drinks/Week Comments Never 0 (1 standard drink = 0.6 oz pur e alcohol) Depression Answer Date Recorded Patient Health Questionnaire-9 Score 0 12/07/2022 Housing Stability Answer Date Recorded What is your housing situation today? I have gudeliatoib beauchamp 08/06/[address] you li ve. Do you have problems with any of the following? None of the above 08/06/2023 Food Insecurity Answer Date Recorded Within the past 12 months, y ou worried that your food would run out before you got money to buy more: Never True 08/06/2023 Within the past 12 months,th e food you bought just didn't last and you didn't have enough money to get more: Never True Transportation Answer Date Recorded In the past 12 months, has l ack of transportation kept you from medical appts, meetings, work or from getting things needed for daily living? No 08/06/2023 Utilities Answer Date Recorded In the past 12 months, has t he electric, gas, oil or water company threatened to shut off services in your home? No 08/06/2023 Depression Answer Date Recorded Patient Health Questionnaire-2 Score 0 12/07/2022 Comments Unknown Sex and Gender Information Value Date Recorded Sex Assigned at Female 08/21/2022 10:16 AM EDT Legal Sex Female 10:16 AM EDT Gender Identity Female 08/21/2022 10:16 AM EDT Sexual Orientation Straight 08/21/2022 10 :16 AM EDT documented as of this encounter Miscellaneous Notes * Telephone Encounter - Akosua Smalls - 09/11/2023 12:23 PM EST Tc from pt requesting med refill on; oxyCODONE (Roxicodone) 5 MG immediate release tablet [facility] [place] [address] - [address] [place] [address] documented in this encounter Plan of Treatment Upcoming Encounters Date Type Department Care Team (Late st Contact Info) Description 07/22/2025 10:30 AM EDT Office Visit [facility] MEDICINE 230 [place] [address] Karla Sheth FNP 505 [place] [address] Arrived 08/11/2025 10:00 AM EDT Clinical Support [facility] MED & PEDS 505 [place] [address] Thuy Grajeda RN 505 [place] [address] documented as of this encounter Visit Diagnoses Not on filedocumented in this encounter Additional Health Concerns Assessment Noted Time PHQ-9 Depression Total Score: 0 12/07/19 10:51 AM EST documented as of this encounter Care Teams Silk Blocker Relationship Specialty Start Date End Date Karla Sheth FNP [address] [place] [address] PCP - General Family Medicine 06/13/22 Carmine Haskins MD [address] [place] [address] Nephrology 10/01/24 Aakash Lopez MD [address] [place] [address] Hematology and Oncology 10/01/24 Ravindra Carbajal Patient Dietary Aide 10/01/24 documented as of this encounter
--- OUTSIDE RECORDS SUMMARY | 2025-07-22 09:37 | XMS_ITS | Encounter Summary ---
Author Organization [employer] Address 75 [facility] 7t [place] [address] Care Team Providers Care Manager Product Name Role Phone Karla Sheth Primary Care Provider [phone] Carmine Haskins MD Unavailable Aakash Lopez MD Unavailable [phone] Reason for Visit * Reason Onset Date Comments Med Refill 01/15/2025 Encounter Details Date Type Department Care Team (Late st Contact Info) Description 01/15/2025 Telephone [facility] MEDICINE 230 [place] [address] Karla Sheth FNP [address] [place], [place] [phone] Med Refill Social History Tobacco Use Types [...] * Telephone Encounter - Channing Huff - 01/15/2025 2:15 PM EDT TC from pt requesting medication refill. Medications needing refill : oxyCODONE (Roxicodone) 5 MG immediate release tablet To be sent to: [facility]/pharmacy #[id number] documented in this encounter Plan of Treatment Upcoming Encounters Date Type Department Care Team (Late st Contact Info) Description 07/22/2025 10:30 AM EDT Office Visit [facility] MEDICINE 230 [place] [address] Karla Sheth FNP 505 [place] [address] Arrived 08/11/2025 10:00 AM EDT Clinical Support [facility] MED & PEDS 505 [place] [address] Thuy Grajeda, CHERYL 505 [place] [address] documented as of this encounter Visit Diagnoses Not on filedocumented in this encounter Additional Health Concerns Assessment Noted Time PHQ-9 Depression Total Score: 0 10/01/20 9:35 AM EST documented as of this encounter Care Teams Manager Product Relationship Specialty Start Date End Date Karla Sheth FNP [address] [place] [address] PCP - General Family Medicine 06/13/22 Carmine Haskins MD [address] [place] [address] Nephrology 10/01/24 Aakash Lopez MD [address] [place] [address] Hematology and Oncology 10/01/24 Raivndra Carbajal Patient Physical Science Teacher 10/01/24 documented as of this encounter
--- OUTSIDE RECORDS SUMMARY | 2025-07-22 09:37 | XMS_ITS | Encounter Summary ---
Author Organization [employer] Address 75 [facility] 7t [place] [address] Care Team Providers Care Apartment House Manager Name Role Phone Karla Sheth Primary Care Provider [phone] Carmine Haskins MD Unavailable Aakash Lopez MD Unavailable [phone] Reason for Visit * Reason Onset Date Comments Med Refill 02/13/2025 Encounter Details Date Type Department Care Team (Late st Contact Info) Description 02/13/2025 Telephone [facility] MEDICINE [address] [place] [address] Karla Sheth FNP [address] [place], [place] [phone] Med Refill Social History Tobacco Use Types [...] Telephone Encounter - Channing Huff - 02/13/2025 10:26 AM EDT TC from pt requesting medication refill. Medications needing refill : zolpidem (Ambien) 5 MG tablet To be sent to: [facility]/pharmacy #[id number] documented in this encounter Plan of Treatment Upcoming Encounters Date Type Department Care Team (Late st Contact Info) Description 07/22/2025 10:30 AM EDT Office Visit [facility] MEDICINE [address] [place] [address] Karla Sheth FNP 505 [place] [address] Arrived 08/11/2025 10:00 AM EDT Clinical Support [facility] MED & PEDS 505 [place] [address] Thuy Grajeda, RN [address] [place] [address] documented as of this encounter Visit Diagnoses Not on filedocumented in this encounter Additional Health Concerns Assessment Noted Time PHQ-9 Depression Total Score: 0 10/01/20 9:35 AM EST documented as of this encounter Care Teams Apartment House Manager Relationship Specialty Start Date End Date Karla Sheth FNP [address] [place] [address] PCP - General Family Medicine 06/13/22 Carmine Haskins MD [address] [place] [address] Nephrology 10/01/24 Aakash Lopez MD [address] [place] [address] Hematology and Oncology 10/01/24 Ravindra Carbajal Patient Animal Humane Agent Supervisor 10/01/24 documented as of this encounter
--- OUTSIDE RECORDS SUMMARY | 2025-07-22 09:37 | XMS_ITS | Encounter Summary ---
Author Organization [employer] Address 75 [facility] 7t [place] [address] Care Team Providers Care Traffic Control Technician Name Role Phone Karla Sheth Primary Care Provider [phone] Carmine Haskins MD Unavailable Aakash Lopez MD Unavailable [phone] Reason for Visit * Reason Onset Date Comments Med Refill 07/14/2024 Encounter Details Date Type Department Care Team (Late st Contact Info) Description 07/14/2024 Telephone [facility] MEDICINE 230 [place] [address] Karla Sheth FNP [address] [place], [place] [phone] Med Refill Social History Tobacco Use Types [...] encounter Miscellaneous Notes * Telephone Encounter - Abraham Hankins - 07/14/2024 12:35 PM EDT TC from pt requesting medication refill. Medications needing refill : oxyCODONE (Roxicodone) 5 MG immediate release tablet To be sent to: [facility]/pharmacy #[id number] [place], [place] - [address] [facility] Mobile Heavy Equipment Mechanic did see it was a partial and was resent on 07/08 with the remainder however patient stated had just call [facility] and was told is nothing there documented in this encounter Plan of Treatment Upcoming Encounters Date Type Department Care Team ([facility] st Contact Info) Description 07/22/2025 10:30 AM EDT Office Visit [facility] MEDICINE [address] [place], [place] [phone] Karla Sheth FNP 505 [place], [place] [phone] Arrived 08/11/2025 10:00 AM EDT Clinical Support [facility] MED & PEDS [address] [place] [address] Thuy Grajeda, CHERYL [address] [place] [address] documented as of this encounter Visit Diagnoses Not on filedocumented in this encounter Additional Health Concerns Assessment Noted Time PHQ-9 Depression Total Score: 12 024 5:34 PM EDT documented as of this encounter Care Teams Traffic Control Technician Relationship Specialty Start Date End Date Karla Sheth FNP [address] [place] [address] PCP - General Family Medicine 06/13/22 Carmine Haskins MD [address] [place] [address] Nephrology 10/01/24 Aakash Lopez MD [address] [place] [address] Hematology and Oncology 10/01/24 Ravindra Carbajal Patient Operational Risk Consultant 10/01/24 documented as of this encounter
--- OUTSIDE RECORDS SUMMARY | 2025-07-22 09:37 | XMS_ITS | Encounter Summary ---
Author Organization [employer] Address [address] [facility] 7 [place] [address] Care Team Providers Care Quarry Plant Crusher Operator Name Role Phone Karla Sheth Primary Care Provider [phone] Carmine Haskins MD Unavailable Aakash Lopez MD Unavailable [phone] Reason for Visit * Reason Onset Date Comments Hospital Follow-up 05/08/2024 Encounter Details Date Type Department Care Team (Late st Contact Info) Description 05/08/2024 Telephone [facility] MED[facility]INE [address] [place] [address] aKrla Sheth FNP [address] [place], [place] [phone] Hospital Follow-up Social History Tobacco Use Types Packs/Day Years [...] the past 12 months, has t he [email or web address], gas, oil or water [employer] threatened to shut off services in your home? No 04/16/2024 Depression Answer Date Recorded Patient Health Questionnaire-2 Score 2 04/16/2024 Comments Unknown Sex and Gender Information Value Date Recorded Sex Assigned at Female 08/21/2022 10:16 AM EDT Legal Sex Female 10:16 AM EDT Gender Identity Female 08/21/2022 10:16 AM EDT Sexual Orientation Straight 08/21/2022 10 :16 AM EDT documented as of this encounter Miscellaneous Notes * Telephone Encounter - Jhoana Olguin RN - 05/09/2024 11:38 AM EDT Per [facility] discharge note pt admitted 04/30 and discharged 05/05. Dx of Acute hyponatremia. Per notes plan Chlorthalidone was discontinued. She has been advised to adhere to water restriction and will continue on urea powder, with follow-up by nephrology on an outpatient basis. Her metabolic encephalopathy due to hyponatremia has resolved, and she is presently back at her baseline. Metabolic encephalopathy due to above: resolved. Acute hypokalemia :was corrected and has resolved. Hypertension: Continue Losartan. Blood pressure is on the lower side, so Chlorthalidone has been stopped. Hypothyroidism: Continue Synthroid. Poor appetite: Remeron was added with good effect, also helping her sleep. Call returned to Ismael Krishnan for HDF appt request below. No answer LVM to return call to [facility] team nurses line [phone]. * Telephone Encounter - Abraham Hankins - 05/08/2024 11:09 AM EDT Tc from pt requesting a HDF appt. Hospital: [facility] Date of admission: 04/30 Discharge date: 05/05 Diagnosed: Acute hyponatremia, Acute Hypokalemia documented in this encounter Plan of Treatment Upcoming Encounters Date Type Department Care Team (Late st Contact Info) Description 07/22/2025 10:30 AM EDT Office Visit [facility] [address] [place] [address] Karla Sheth FNP [address] [place] [address] Arrived 08/11/2025 10:00 AM EDT Clinical Support [facility] [address] [place] [address] Thuy Grajeda, RN [address] [place], [place] [phone] documented as of this encounter Visit Diagnoses Not on filedocumented in this encounter Additional Health Concerns Assessment Noted Time PHQ-9 Depression Total Score: 12 024 5:34 PM EDT documented as of this encounter Care Teams Quarry Plant Crusher Operator Relationship Specialty Start Date End Date Karla Sheth FNP [address] [place] [address] PCP - General Family Medicine 06/13/22 Carmine Haskins MD [address] [place] [phone] Nephrology 10/01/24 Aakash Lopez MD [address] [place] [address] Hematology and Oncology 10/01/24 Ravindra Carbajal Patient Brush Stainer 10/01/24 documented as of this encounter
--- OUTSIDE RECORDS SUMMARY | 2025-07-22 09:37 | XMS_ITS | Encounter Summary ---
Author Organization [employer] Address [address] [facility] [address] [place] [address] Care Team Providers Care Real Estate Director Name Role Phone Karla Sheth Primary Care Provider [phone] Carmine Haskins MD Unavailable Aakash Lopez MD Unavailable [phone] Reason for Visit * Reason Onset Date Comments Med Refill 11/16/2023 Encounter Details Date Type Department Care Team (Late st Contact Info) Description 11/16/2023 Telephone [facility] MEDICINE [address] [place] [address] Karla Sheth FNP [address] [place], [place] [phone] Med Refill Social History Tobacco Use Types Packs/Day Years Used Date Smoking Tobacco: Never Smokeless Tobacco: Never Comments:20 years ago. 2022 Alcohol Use Standard Drinks/Week Comments Never 0 (1 standard drink = 0.6 oz pur e alcohol) Depression Answer Date Recorded Patient Health Questionnaire-9 Score 0 12/07/2022 Housing Stability Answer Date Recorded What is your housing situation today? I have gudeliatobi beauchamp 08/06/[address] you [...] encounter Miscellaneous Notes * Telephone Encounter - Bossman Purcell - 11/16/2023 12:21 PM EST TC from pt requesting medication refill. Medications needing refill: zolpidem (Ambien) 5 MG tablet and fluticasone- salmeterol (Advair) 115-21 MCG/ACT inhaler To be sent to: [facility]/pharmacy #[id number] documented in this encounter Plan of Treatment Upcoming Encounters Date Type Department Care Team (Late st Contact Info) Description 07/22/2025 10:30 AM EDT Office Visit [facility] MEDICINE [address] [place] [address] Karla Sheth FNP [address] [place] [address] Arrived 08/11/2025 10:00 AM EDT Clinical Support [facility] [address] [place] [address] Thuy Grajeda, RN [address] [place] [address] documented as of this encounter Visit Diagnoses Not on filedocumented in this encounter Additional Health Concerns Assessment Noted Time PHQ-9 Depression Total Score: 0 12/07/19 23 10:51 AM EST documented as of this encounter Care Teams Real Estate Director Relationship Specialty Start Date End Date Karla Sheth FNP [address] [place] [address] PCP - General Family Medicine 06/13/22 Carmine Haskins MD [address] [place] [address] Nephrology 10/01/24 Aakash Lopez MD [address] [place] [address] Hematology and Oncology 10/01/24 Ravindra Carbajal Patient Car Sealer 10/01/24 documented as of this encounter
--- OUTSIDE RECORDS SUMMARY | 2025-07-22 09:37 | XMS_ITS | Clinical Summary ---
Author Organization [employer] Address [address] [facility] [address] [place] [address] Care Team Providers Care Review Appraiser Name Role Phone Kellyvishal Karla [place] Primary Care Provider [phone] Carmine Haskins MD Unavailable Aakash Lopez MD Unavailable [phone] Allergies No known active allergies Medications albuterol (Ventolin HFA) 108 (90 Base) MCG/ACT inhaler inhale 2 puffs by Inhalation route every 4 hours as needed 020 Active FreeStyle lancets 28 gauge Use 1 each as directed route every day Active melatonin 3 MG tablet TAKE 1 TABLET BY MOUTH AT BEDTIME IF NEEDED FOR SLEEP 90 tablet 1 024 Active OneTouch Delica Lancets 33G miscIndications: Prediabetes Use to test blood sugar 1 time daily 100 each 3 024 Active Alcohol Swabs 70 % padsIndications: Prediabetes Use to test blood sugar 1 times daily 100 each 11 024 Active Blood Glucose Monitoring Suppl (ONE TOUCH ULTRA 2) w/Device kitIndications:P rediabetes Use to test blood sugar 1 times daily 1 kit 024 Active atorvastatin (Lipitor) 10 MG tablet TOME BETTY TABLETA TODOS LOS ISABEL 90 tablet 3 024 Active omeprazole (PriLOSEC) [address] capsule TOME 1 CAPSULA TODOS LOS ISABEL 90 capsule 2 024 Active lidocaine-priloc alma (Emla) 2.5-2.5 % creamIndications :Chronic pain syndrome Apply topically if needed in the morning, at noon, and at bedtime (pain). 30 g 3 024 Active levothyroxine (Synthroid, Levoxyl) 25 MCG tablet TOME 1 TABLETA POR VIA ORAL TODOS LOS ISABEL ANTES DEL DESAYUNO 90 tablet 1 025 Active Wixela Inhub 250-50 MCG/ACT aerosol powderIndication s:Asthma in adult, moderate persistent, uncomplicated INHALE 1 PUFF BY MOUTH 2 TIMES DAILY. 60 each 1 025 Active olmesartan (Benicar) 20 MG tabletIndication s:Essential hypertension Take 1 tablet (20 mg) by mouth Once per day. 90 tablet 1 025 2025 Active amLODIPine (Norvasc) 5 MG tabletIndication s:Essential hypertension Take 1 tablet (5 mg) by mouth Once per day. 90 tablet 1 025 2025 Active levothyroxine (Synthroid) 25 MCG tabletIndication s:Hypothyroidism , unspecified type Take 0.5 tablets (12.5 mcg) by mouth before breakfast. 30 tablet 1 025 2025 Active mirtazapine (Remeron) 7.5 MG tabletIndication s:Primary insomnia TAKE 1 TABLET BY MOUTH AT BEDTIME. 90 tablet 1 025 Active Oyster Shell Calcium 500 MG tabletIndication s:Other osteoporosis, unspecified pathological fracture presence TOME 1 TABLETA POR VIA ORAL DOS VECES AL STELLA 180 tablet 3 025 Active aspirin (Aspirin Low Dose) 81 MG EC tabletIndication s:Dyslipidemia TOME 1 TABLETA POR VIA ORAL TODOS LOS ISABEL 90 tablet 1 025 Active naloxone (Narcan) 4 mg/0.1 mL nasal spray Administer 1 spray (4 mg) into affected nostril(s) if needed for opioid reversal. May repeat every 2-3 minutes if needed, alternating nostrils, until medical assistance becomes available. 2 each 1 025 Active zolpidem (Ambien) 5 MG tabletIndication s:Primary insomnia TAKE 1 TABLET BY MOUTH AT BEDTIME NEEDED 30 tablet 1 025 Active oxyCODONE (Roxicodone) 5 MG immediate release tabletIndication s:Chronic Pain Take 1 tablet (5 mg) by mouth if needed in the morning and at bedtime for severe pain. 60 tablet 025 2024 Active oxyCODONE (Roxicodone) 5 MG immediate release tabletIndication s:Chronic Pain Take 1 tablet (5 mg) by mouth if needed in the morning and at bedtime for severe pain. 60 tablet 025 2024 Discontinued(R eorder (will not trigger notification to Pharmacy)) Active Problems Problem Noted Date Diagnosed Date Cardiac arrhythmia 10/02/2024 Assessment & Plan (10/13/2024 6:11 PM EST): - Newly identified Irregular HR noted on exam 10/01/24 (also with questions of gallop) - EKG (+) arrhythmia. Consideration of AC. - Plan: Holter monitor, Cards referral urgent pending. Given information to contact office today. - ED precautions Assessment & Plan (10/02/2024 12:37 PM EST): - Newly identified Irregular HR noted on exam (also with questions of gallop), pt asymptomatic in office but does report hx of palpitations in past. - EKG (+) arrhythmia. Consideration of AC. - Plan: Holter monitor, Cards referral urgent - ED precautions Long-term current use of opiate analgesic 2023 Overview (10/02/2024): Medication: oxycodone 5mg BID Indication: chronic pain syndrome, chronic bilateral knee pain and low back pain Last [employer] Agreement: 07/03/24 Tier I (monthly [employer] visits as had been out of program. May advance to Tier II if results as expected) Prediabetes 04/16/2024 Assessment & Plan (10/02/2024 12:12 PM EST): Lab Results Component Value Date HGBA1C 6.0 (H) 04/27/2022 -Repeat A1c ordered Assessment & Plan (04/16/2024 4:56 PM EDT): Lab Results Component Value Date HGBA1C 6.0 (H) 04/27/2022 -Repeat A1c ordered -BG monitoring supplies sent to pharmacy per pt request Mixed stress and urge urinary incontinence 04/16 Assessment & Plan (04/16/2024 5:00 PM EDT): UA in office WNL, not suggestive of infx DME requests sent on 04/16/24 Adult Pull Ups (Size small) Wipes Disposable Incont Pads Gloves History of fall 04/16/2024 Assessment & Plan (10/02/2024 12:15 PM EST): Approx 1 fall in the past 12 months High risk of fracture or injury w/ osteoporosis Letter generated for request of first floor apartment on 04/16/25 Physical therapy referral placed 04/16/24 DME Request for quad cane placed: 10/02/24 Fall precautions Assessment & Plan (04/16/2024 5:01 PM EDT): Approx 2 falls in the past 12 months High risk of fracture or injury w/ osteoporosis Letter generated for request of first floor apartment on 04/16/25 Physical therapy referral placed 04/16/24 DME Request for reclining chair placed 04/16/24 Chronic pain syndrome 04/16/2024 Assessment & Plan (10/02/2024 12:10 PM EST): - Sites of pain: low back, bilateral knees, generalized pain - Continues with sparing use of oxycodone PRN severe pain. Engaged with [employer] Program. Revoewed ,ed safety and SE. - Reviewed importance of pharm and non-pharm modalities for the tx of chronic pain, encouraged to consider physical therapy and/or ortho eval. She will think about it Assessment & Plan (04/16/2024 5:05 PM EDT): - Sites of pain: low back, bilateral knees, generalized pain - Refill of oxycodone on hold until pt had UTOX result on file. Pt UTOX today as expected, refill of oxycodone sent to the pharmacy. Reviewed judicious use of medication - Reviewed importance of pharm and non-pharm modalities for the tx of chronic pain, encouraged to consider [employer] group visits - Follow up with [employer] Program Healthcare maintenance 08/02/2023 Overview (03/20/2025): Mammo: BIRADS 1 on 10/03/24 OPH: 01/04/24: [facility]. CEE. No retinopathy seen. Last comprehensive eval: 10/01/24 Colonoscopy: December 2022 Assessment & Plan (10/01/2024 11:09 AM EST): COVID and flu vaccine administered today Assessment & Plan (08/02/2023 11:47 AM EDT): Plan to get influenza and shingles dose #2 in the [facility] pharmacy today after visit History of malignant neoplasm of colon Overview (10/01/2024): -Hx of colon carcinoma s/p surgery in 2002. Adjuvant chemotherapy with 5-FU and leucovorin, completed December 2003 -Followed by [facility] Heme/Onc, Dr. Lopez -Colonoscopy Jul 2015 Dr. 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 Ojeda, tubular adenomas, otherwise unremarkable Assessment & Plan (08/02/2023 11:54 AM EDT): Weight range 108-110lbs since April 2022 Reports adequate appetite and food consumption. Continues with ensure supplement drinks Continue following with [facility] Heme/Onc and GI Asthma in adult, moderate persistent, uncomplica vinicius 10/02/2022 Overview (10/02/2024): Maintenance: Advair 115-21 mcg/act 2 puffs BID Rescue: Albuterol PRN Assessment & Plan (10/02/2024 12:11 PM EST): -Well controlled with current regimen -Return precautions reviewed Assessment & Plan (10/06/2023 12:11 PM EST): -Pt preference to switch from current Breo Ellipta inhalation powder back to Advair HFA. Sent to pharmacy. -Continue albuterol PRN -Return precautions reviewed Assessment & Plan (01/22/2023 8:11 AM EDT): -Well controlled with current regimen, although pt preference for Diskus over HFA inhaler -Discontinue Advair HFA -Start Breo Ellipta inhalation powder. Reviewed med safety and use -Continue albuterol PRN Follow up in 1 month, sooner PRN Hypothyroidism 09/03/2021 Overview (03/20/2025): Lab Results Component Value Date TSH 2.72 01/05/2025 Assessment & Plan (03/20/2025 1:08 PM EDT): -Goal serum TSH 4-6 mIU/L given age (per [employer]) -Will dec from levo 25mcg to levo 12.5mcg daily Assessment & Plan (10/02/2024 12:13 PM EST): Repeat pending Assessment & Plan (04/16/2024 3:18 PM EDT): Repeat pending Assessment & Plan (10/06/2023 12:13 PM EST): Repeat pending Backache 09/06/2015 Chronic anemia 09/06/2015 Dyslipidemia 09/06/2015 Assessment & Plan (10/02/2024 12:15 PM EST): -Fasting lipid panel ordered Essential hypertension 09/06/2015 Assessment & Plan (03/20/2025 1:12 PM EDT): Elevated per home and office readings DISCONTINUE losartan 100mg daily INCREASE to amlodipine 5mg daily START olmesartan 20mg daily Referral to Cards 10/01/24 and order for Holter placed for arrhythmia ED/urgent care precautions Check BMP in 2 weeks. Lifestyle interventions encouraged. Follow up in 4 weeks to check BP. Previous meds: Chlorthalidone 25mg daily (Dc April 2024 d/t hyponatremia) Assessment & Plan (10/13/2024 6:10 PM EST): Well controlled per home readings Cont losartan 100mg daily Cont amlodipine 2.5mg daily Referral to Cards 10/01/24 and order for Holter placed for arrhythmia ED/urgent care precautions Previous meds: Chlorthalidone 25mg daily (Dc April 2024 d/t hyponatremia) Assessment & Plan (10/02/2024 12:12 PM EST): Cont losartan 100mg daily Start amlodipine 2.5mg daily Referral to Cards 10/01/24 and order for Holter placed for arrhythmia ED/urgent care precautions BP elevated, start amlodipine. Follow up in 2-3 weeks to review home readings. Reviewed med safety and SE. Previous meds: Chlorthalidone 25mg daily (Or April 2024 d/t hyponatremia) Assessment & Plan (05/18/2024 8:18 AM EDT): Home readings well controlled Denies any chest pain, palpitation, HANCOCK, blurry vision, N/V/D Cont losartan 100mg daily ED/urgent care precautions Previous meds: Chlorthalidone 25mg daily (Or April 2024 d/t hyponatremia) Assessment & Plan (04/16/2024 5:12 PM EDT): BP elevated upon initial and repeat in clinic. Pt asymptomatic. Has not been taking both medications consistently BP improved to 154/74 s/p clonidine 0.1mg Denies any chest pain, palpitation, HANCOCK, blurry vision, N/V/D Cont losartan 100mg daily Cont chlorthalidone 25mg daily. Reviewed med safety and SE Follow up in 2-3 weeks with home blood pressure readings ED/urgent care precautions Assessment & Plan (10/06/2023 12:11 PM EST): Home BP readings much improved with addition of chlorthalidone Denies any chest pain, palpitation, HANCOCK, blurry vision, N/V/D Cont losartan 100mg daily Cont chlorthalidone 25mg daily. Reviewed med safety and SE ED/urgent care precautions Assessment & Plan (08/26/2023 11:18 AM EST): Initial and repeat BP elevated during last office visit. Home BP readings elevated as well Denies any chest pain, palpitation, HANCOCK, blurry vision, N/V/D Continues losartan 100mg daily START chlorthalidone 25mg daily. Reviewed med safety and SE ED/urgent care precautions BP monitor sent to pharmacy, home BP log provided Assessment & Plan (08/02/2023 11:49 AM EDT): Initial and repeat BP elevated in office. Pt does not have home monitor so has not been checking home BP Denies any chest pain, palpitation, HANCOCK, blurry vision, N/V/D Continues with losartan 100mg daily ED/urgent care precautions BP monitor sent to pharmacy, home BP log provided Plan: follow up in 3 weeks to review readings via telehealth. Med adjustments if appropriate. Gastro-esophageal reflux disease with esophagiti s 09/06/2015 Osteoporosis 09/06/2015 Overview (04/16/2024): -DEXA Aug 2018: Osteoporosis based on the lowest T-score value of -4.0 in the lumbar spine -DEXA Sep 2023: Osteoporosis based on the lowest T-score value of -3.9 in the femoral neck and lumbar spine Treatment: -Currently taking calcium (through PCP) with vitamin D daily (OTC). Management with oral bisphosphonate is not appropriate given history of Su's esophagus -Encourage lifestyle interventions Assessment & Plan (10/06/2023 12:22 PM EST): Consider injectable anabolic agent (maven consult placed 10/06/23) Primary insomnia 09/06/2015 Overview (10/02/2024): Well controlled with mirtazapine 7.5mg nightly Previously using melatonin 3mg and Ambien PRN. Has decreased use of Ambien significantly since starting mirtazapine. Consider removal from med list in future Reviewed med safety and SE. Encouraged behavioral interventions Assessment & Plan (05/18/2024 8:16 AM EDT): Initiated on mirtazapine 7.5mg nightly during hospitalization in April 2024 with good effect. Also helpful for appetite. Hearing loss 03/06/2014 Allergic rhinitis 03/07/2012 Resolved Problems Problem Noted Date Diagnosed Date Resolved Date Amnesia 02/26/2019 08/26/2023 Impaired glucose tolerance 07/09/2014 0 04/16/2024 Encounters Date Type Department Care Team Description 07/22/2025 Travel 07/17/2025 Refill [facility] [address] [place] [address] Karla Sheth, SUPERVISOR HARVESTING Chronic pain syndrome 06/17/2025 Refill [facility] [address] [place] [address] Thuy Grajeda RN Chronic pain syndrome 06/17/2025 Refill [facility] [address] [place] [phone] Karla Sheth, SUPERVISOR HARVESTING Primary insomnia 06/17/2025 Telephone [facility] [address] [place] [phone] Karla Sheth, SUPERVISOR HARVESTING Med Refill 05/18/2025 Refill [facility] [address] [place] [phone] Karla Sheth, SUPERVISOR HARVESTING Chronic pain syndrome 05/05/2025 10:00 AM EDT Clinical Support [facility] [address] [place] [address] Thuy Grajeda RN Chronic pain syndrome (Primary Dx) 05/05/2025 Refill [facility] [address] [place] [address] Thuy Grajeda RN 05/05/2025 Travel from Last 3 Months Immunizations Immunization Administration Dates Next Due Influenza High-dose Quadriva lent Preservative Free 08/01/2023,08/04/2022 Influenza Quadrivalent Adjuvanted 07/31/2021,02/2020 Influenza injectable quadriv alent preservative free 07/20/2015 Influenza, High Dose Seasona l, Preservative Free 06/20/2017,07/18/2016 Influenza, IIV3, injectable 07/09/2014, 1 Influenza, Split (incl. maryan fied surface antigen) 07/15/2013,08/05/2012 Influenza, seasonal, injecta ble, preservative free 10/01/2024 Influenza, trivalent, adjuvanted 06/16/2019,06/23 Moderna Covid-19 Vaccine 12+ 05/02/2022, 06/10/2021,01/06/2021,12/09 Moderna Covid-19 Vaccine 6+ Bivalent 12/28/2022 Pfizer Covid-19 Vaccine 12+ 10/01/2024 Pneumococcal Conjugate PCV 13 01/27/2022 Pneumococcal Polysaccharide PPSV23 02/01/2012, Tdap 04/27/2022,02/01/2012 Zoster, Recombinant 10/03/2023,08/01/2023 Zoster, live 03/06/2014 Social History Tobacco Use Types Packs/Day Years Used Date Smoking Tobacco: Never Smokeless Tobacco: Never Tobacco Cessation:Counseling Given: Not Answered Comments:20 years ago. 08/24/2023 Alcohol Use Standard Drinks/Week Comments Never 0 [...] Orientation Straight 08/21/2022 10 :16 AM EDT Last Filed Vital Signs Vital Sign Reading Time Taken Comments Blood Pressure 161/79 03/20/2025 10:49 AM EDT Pulse 80 03/20/2025 10:49 AM EDT Temperature 36.9 C (98.4 F) 03/20/2025 10:49 AM EDT Respiratory Rate 16 03/20/2025 10:49 AM EDT Oxygen Saturation 98% 10/01/2024 9:26 AM EST Inhaled Oxygen Concentration - - Weight 50 kg (110 lb 3.2 oz) 03/20/2025 10:49 AM EDT Height 142.2 cm (4' 8 ) 03/20/2025 10:49 AM EDT Body Mass Index 24.71 03/20/2025 10:49 AM EDT Plan of Treatment Upcoming Encounters Date Type Department Care Team (Late st Contact Info) Description 07/22/2025 10:30 AM EDT Office Visit [facility] [address] [place] [address] Karla Sheth FNP [address] [place] [address] Arrived 08/11/2025 10:00 AM EDT Clinical Support [facility] [address] [place] [address] Thuy Grajeda, RN [address] [place] [address] Health Maintenance Due Date Last Done Comments RSV Patients and Patients Aged 60 years or older (1 - 1-dose 75+ series) 2018 SDOH Screening 04/16/2025 04/16/2024 COVID-19 Vaccine ( season) 2025 10/01/2024, 12/28/2022, 05/02/2022, Additional history exists Influenza Vaccine (#1) 2025 , 08/01/2023, 08/09/2022, Additional history exists Alcohol/Substance Use Screening 10/01/2025 10/01/2024 Depression Screening 10/01/2025 10/01/2024, 10/01/20 Tobacco Screening 10/13/2025 10/13/2024 Diabetes: Hemoglobin A1C 01/05/2026 025, 04/27/2022, 09/14/2021, Additional history exists Lipid Panel 01/05/2030 01/05/2025, 0704/2022, 09/14/2021 DTaP/Tdap/Td Vaccines (3 - Td or Tdap) 04/27/2032 04/27/2022, 02/01/2012 Pneumococcal Vaccine: 50+ Years Completed 01/27/2022, 02/01/2012, 08/15/2002 Zoster Vaccines Completed 10/03/2023, 07/22, 03/06/2014 HIB Vaccines Aged Out No longer eligi ble based on patient's age to complete this topic HPV Vaccines Aged Out No longer eligi ble based on patient's age to complete this topic Hepatitis A Vaccines Aged Out No long er eligible based on patient's age to complete this topic Hepatitis B Vaccines Aged Out No long er eligible based on patient's age to complete this topic IPV Vaccines Aged Out No longer eligi ble based on patient's age to complete this topic Meningococcal B Vaccine Aged Out No l onger eligible based on patient's age to complete this topic Meningococcal Vaccine Aged Out No hue leila eligible based on patient's age to complete this topic RSV under 20 months Aged Out No longe r eligible based on patient's age to complete this topic Rotavirus Vaccines Aged Out No longer eligible based on patient's age to complete this topic Procedures Procedure Name Priority Date/Time Associated Diagnosis Comments POCT TOPHER-14 URINE DRUG SCREEN Routine 05/05/2025 10:10 AM EDT Chronic pain syndrome HEMOGLOBIN A1C Routine 01/05/2025 9:05 AM EDT Healthcare maintenance LIPID PANEL, STANDARD Routine 01/05/2025 9:05 AM EDT Healthcare maintenance from Last 3 Months or Most Recently Relevant to Health Maintenance Results * (ABNORMAL) POCT TOPHER-14 Urine Drug Screen (05/05/2025 10:10 AM EDT) THC Positive(A) Negative Cocaine Screen, Urine Negative Negative Opiate Screen, Urine Negative Negative Methamphetamine Screen Urine Negative Negative Amphetamine Screen, Urine Negative Negative Benzodiazepines Screen, Urine Negative Negative Barbiturate Screen, Urine Negative Negative Methadone Screen, Urine Negative Negative Buprenophine Screen, Urine Negative Negative TCA, Urine Negative Negative MDMA Urine Negative Negative ng/mL Oxycodone Screen, Urine Positive(A) Negative Phencyclidine (PCP), Urine Negative Negative Propoxyphene, Urine Negative Negative Fentanyl, Urine Negative Negative Urine Urine specimen obtained by clean catch procedure / Unknown 05/05/2025 10:10 AM EDT Thuy Glez RN - 05/05/2025 10:10 AM EDT Internal Pass Control Lot# [id number] Exp: 08-21-26 Karla Sheth SUPERVISOR HARVESTING POINT OF CARE TEST ENTER/EDIT ORDERABLES Final Result * Hemoglobin A1c (01/05/2025 9:05 AM EDT) Hemoglobin A1c 5.8 <6.0 % [facility] Comment:Hemoglobin A1C Refer ence Range Adults: 4.8 - 6.0 % Non diabetic: < 6.0 % Goal: < 7.0 %Additional Action Suggested: > 8.0 %Note: Hemoglobin A1c results are invalid for patients with abnormal amounts of HbF. Blood transfusions may impact the HbA1c concentration in the patient sample. Estimated Average Glucose 120 mg/dL [facility] Comment:eAG = Estimated ave rage glucose which is %A1C expressed asaverage glucose, using the formula of the [id number] Glucose study (ADAG), Diabetes Care, Vol.31,#8,2007 Blood Venous blood specimen / Unknown 01/05/2025 9:05 AM EDT 01/05/2025 11:18 AM EDT Karla Sheth [facility] BLOOD ORDERABLES Final Res ult Performing Organization Address [facility] Co de Phone Number [facility] [address] [place] [address] [phone] * Lipid Panel, Standard (01/05/2025 9:05 AM EDT) Triglycerides 96 <150 mg/dL [facility] Comment:Desirable Triglyceri de: less than 150 mg/dLBorderline High Triglyceride 150-199 mg/dLHigh Triglyceride: 200-499 mg/dLVery High Triglyceride: greater than or equal to 5OO mg/dL Cholesterol 107 <200 mg/dL [facility] Comment:Desirable Cholestero l: less than 200 mg/dLBorderline High Cholesterol: 200-239 mg/dLHigh Cholesterol: greater than 239 mg/dL LDL Cholesterol Calculated 45 <100 mg/dL [facility] Comment:Desirable LDL: less than 100 mg/dLNear Optimal/Above Optimal LDL: 110- 129 mg/dLBorderline High LDL: 130-159 mg/dLHigh LDL: 160-189 mg/dLVery High LDL: greater than or equal to 190 mg/dL HDL Cholesterol 43 >40 mg/dL [facility] Comment:Desirable HDL: great er than 40 mg/dL Note: This HDL assay may give artificially low results in patients with liver disease. Blood Venous blood specimen / Unknown 01/05/2025 9:05 AM EDT 01/05/2025 11:18 AM EDT Karla Sheth SUPERVISOR HARVESTING LAB BLOOD ORDERABLES Final Res ult Performing Organization Address [facility] Co de Phone Number [facility] [address] [place] [address] [phone] from Last 3 Months or Most Recently Relevant to Health Maintenance Insurance [facility] [employer] (HMO D-SNP) PJ SAMANO [id number] Care Teams Review Appraiser Relationship Specialty Start Date End Date Karla Sheth FNP [address] [place] [address] PCP - General Family Medicine 06/13/22 Carmine Haskins MD [address] [place] [address] Nephrology 10/01/24 Aakash Lopez MD [address] [place] [phone] Hematology and Oncology 10/01/24 Raivndra Carbajal Patient Biomedical Engineering Director 10/01/24
--- OUTSIDE RECORDS SUMMARY | 2025-07-22 09:37 | XMS_ITS | Clinical Summary ---
Author Organization [facility] ity Address [address] [place] [phone] Care Team Providers Care Drum Builder Name Role Phone Unavailable Primary Care Provider Unavailabl e Social History Tobacco Use Types Packs/Day Years Used Date Smoking Tobacco: Never Assessed Comments Unknown Sex and Gender Information Value Date Recorded Sex Assigned at Not on file Legal Sex Female 2:17 AM EST Gender Identity Not on file Sexual Orientation Not on file Plan of Treatment Health Maintenance Due Date Last Done Comments DTaP,Tdap,and Td Vaccines (1 - Tdap) 1962 Pneumococcal Vaccine: 50+ Ye ars (1 of 1 - PCV) 1993 Zoster Vaccines (1 of 2) 1993 RSV Immunization Adult Patie nts (1 - 1-dose 75+ series) 2018 Depression Screening 10/22/2024 COVID-19 Vaccine (1 - 2023-2 5 season) 2025 Influenza Vaccine (#1) 2025 HIB Vaccines Aged Out No longer eligi [...] on patient's age to complete this topic MMR Vaccines Aged Out No longer eligi ble based on patient's age to complete this topic Meningococcal ACWY Vaccine Aged Out N o longer eligible based on patient's age to complete this topic Meningococcal B Vaccine Aged Out No l onger eligible based on patient's age to complete this topic RSV Immunization Patients Un mary kay 20 months Aged Out No longer eligible b ased on patient's age to complete this topic Varicella Vaccines Aged Out No longer eligible based on patient's age to complete this topic
--- OUTSIDE RECORDS SUMMARY | 2025-07-22 09:37 | XMS_ITS | Encounter Summary ---
Author Organization [employer] Address [address] [facility] 7t [place] [address] Care Team Providers Care Shellfish Checker Name Role Phone Karla Sheth Primary Care Provider [phone] Carmine Haskins MD Unavailable Aakash Lopez MD Unavailable [phone] Reason for Visit * Reason Onset Date Comments Med Refill 05/19/2024 Encounter Details Date Type Department Care Team (Late st Contact Info) Description 05/19/2024 Telephone [facility] MEDICINE [address] [place] [address] Karla Sheth FNP [address] [place], [place] [phone] Med Refill Social History Tobacco Use Types [...] the past 12 months, has t he [employer], gas, oil or water company threatened to [...] * Telephone Encounter - Bossman Purcell - 05/19/2024 2:18 PM EDT TC from pt requesting medication refill. Medications needing refill: oxyCODONE (Roxicodone) 5 MG immediate release tablet To be sent to: [facility]/pharmacy #[id number] [place] [address] documented in this encounter Plan of Treatment Upcoming Encounters Date Type Department Care Team (Late st Contact Info) Description 07/22/2025 10:30 AM EDT Office Visit [facility] MEDICINE [address] [place] [address] Karla Sheth FNP 505 [place] [address] Arrived 08/11/2025 10:00 AM EDT Clinical Support [facility] CHC MED & PEDS [address] [place] [address] Thuy Grajeda, RN 505 [place] [address] documented as of this encounter Visit Diagnoses Not on filedocumented in this encounter Additional Health Concerns Assessment Noted Time PHQ-9 Depression Total Score: 12 024 5:34 PM EDT documented as of this encounter Care Teams Shellfish Checker Relationship Specialty Start Date End Date Karla Sheth FNP [address] [place] [address] PCP - General Family Medicine 06/13/22 Carmine Haskins MD [address] [place] [address] Nephrology 10/01/24 Aakash Lopez MD [address] [place] [address] Hematology and Oncology 10/01/24 Ravindra Carbajal Patient Rippler 10/01/24 documented as of this encounter
--- OUTSIDE RECORDS SUMMARY | 2025-07-22 09:37 | XMS_ITS | Encounter Summary ---
Author Organization [employer] Address [address] [place] [address] 7 [place] [address] Care Team Providers Care Fabric Inspector Name Role Phone Karla Sheth Primary Care Provider [phone] Carmine Haskins MD Unavailable Aakash Lopez MD Unavailable [phone] Reason for Visit * Reason Onset Date Comments Med Refill 07/18/2023 Encounter Details Date Type Department Care Team (Late st Contact Info) Description 07/18/2023 Telephone [facility] MEDICINE [address] [place] [address] Karla Sheth FNP [address] [place], [place] [phone] Med Refill Social History Tobacco Use Types [...] encounter Miscellaneous Notes * Telephone Encounter - Kirstin Morrison - 07/18/2023 11:09 AM EDT Tc from patient requesting a med refill for medication oxycodone [address] Sheth documented in this encounter Plan of Treatment Upcoming Encounters Date Type Department Care Team (Late st Contact Info) Description 07/22/2025 10:30 AM EDT Office Visit [facility] MEDICINE [address] [place] [address] Karla Sheth FNP 505 [place] [address] Arrived 08/11/2025 10:00 AM EDT Clinical Support [facility] CHC MED & PEDS 505 [place], [place] [phone] Thuy Grajeda RN 505 [place], [place] [phone] documented as of this encounter Visit Diagnoses Not on filedocumented in this encounter Additional Health Concerns Assessment Noted Time PHQ-9 Depression Total Score: 0 12/07/19 10:51 AM EST documented as of this encounter Care Teams Fabric Inspector Relationship Specialty Start Date End Date Karla Sheth FNP [address] [place] [address] PCP - General Family Medicine 06/13/22 Carmine Haskins MD [address] [place] [address] Nephrology 10/01/24 Aakash Lopez MD [address] [place] [address] Hematology and Oncology 10/01/24 Ravindra Carbajal Patient Room Server 10/01/24 documented as of this encounter
--- OUTSIDE RECORDS SUMMARY | 2025-07-22 09:37 | XMS_ITS | Encounter Summary ---
Author Organization [employer] Address 75 [facility] 7t [place] [address] Care Team Providers Care Videogame Tester Name Role Phone Karla Sheth Primary Care Provider [phone] Carmine Haskins MD Unavailable Aakash Lopez MD Unavailable [phone] Reason for Visit * Reason Onset Date Comments Med Refill 04/17/2025 Encounter Details Date Type Department Care Team (Late st Contact Info) Description 04/17/2025 Telephone [facility] MEDICINE [address] [place] [address] Karla Sheth FNP [address] [place], [place] [phone] Med Refill Social History Tobacco Use Types [...] * Telephone Encounter - Channing Huff - 04/17/2025 9:49 AM EDT TC from pt requesting medication refill. Medications needing refill : oxyCODONE (Roxicodone) 5 MG immediate release tablet To be sent to: [facility]/pharmacy #[id number] documented in this encounter Plan of Treatment Upcoming Encounters Date Type Department Care Team (Late st Contact Info) Description 07/22/2025 10:30 AM EDT Office Visit [facility] MEDICINE [address] [place] [address] Karla Sheth FNP 505 [place] [address] Arrived 08/11/2025 10:00 AM EDT Clinical Support [facility] CHC MED & PEDS 505 [place] [address] Thuy Grajeda, CHERYL 505 [place] [address] documented as of this encounter Visit Diagnoses Not on filedocumented in this encounter Additional Health Concerns Assessment Noted Time PHQ-9 Depression Total Score: 0 10/01/20 9:35 AM EST documented as of this encounter Care Teams Videogame Tester Relationship Specialty Start Date End Date Karla Sheth FNP 230 [place] [address] PCP - General Family Medicine 06/13/22 Carmine Haskins MD [address] [place] [address] Nephrology 10/01/24 Aakash Lopez MD [address] [place] [address] Hematology and Oncology 10/01/24 Raivndra Carbajal Patient Greenhouse Instructor 10/01/24 documented as of this encounter
--- OUTSIDE RECORDS SUMMARY | 2025-07-22 09:37 | XMS_ITS | Encounter Summary ---
Author Organization [employer] Address [address] [facility] 7t [place] [address] Care Team Providers Care Environmental Attorney Name Role Phone Karla Sheth Primary Care Provider [phone] Carmine Haskins MD Unavailable Aakash Lopez MD Unavailable [phone] Reason for Visit * Reason Onset Date Comments Med Refill 08/18/2024 Encounter Details Date Type Department Care Team (Late st Contact Info) Description 08/18/2024 Telephone [facility] MEDICINE 230 [place] [address] Karla Sheth FNP [address] [place], [place] [phone] Med Refill Social History Tobacco Use Types [...] * Telephone Encounter - Channing Huff - 08/18/2024 11:14 AM EDT TC from pt requesting medication refill. Medications needing refill : oxyCODONE (Roxicodone) 5 MG To be sent to: [facility]pharmacy #[id number] documented in this encounter Plan of Treatment Upcoming Encounters Date Type Department Care Team (Late st Contact Info) Description 07/22/2025 10:30 AM EDT Office Visit [facility] MEDICINE [address] [place], [place] [phone] Karla Sheth FNP 505 [place] [address] Arrived 08/11/2025 10:00 AM EDT Clinical Support [facility] CHC MED & PEDS 505 [place] [address] Thuy Grajeda, RN 505 [place] [address] documented as of this encounter Visit Diagnoses Not on filedocumented in this encounter Additional Health Concerns Assessment Noted Time PHQ-9 Depression Total Score: 12 04/16/ 024 5:34 PM EDT documented as of this encounter Care Teams Environmental Attorney Relationship Specialty Start Date End Date Karla Sheth FNP 230 [place] [address] PCP - General Family Medicine 06/13/22 Carmine Haskins MD [address] [place] [address] Nephrology 10/01/24 Aakash Lopez MD [address] [place] [address] Hematology and Oncology 10/01/24 Ravindra Carbajal Patient Offset Pressman 10/01/24 documented as of this encounter
--- OUTSIDE RECORDS SUMMARY | 2025-07-22 09:38 | XMS_ITS | Encounter Summary ---
Author Organization [employer] Address 75 [facility] 7t [place] [address] Care Team Providers Care Food Service Name Role Phone Karla Sheth Primary Care Provider [phone] Carmine Haskins MD Unavailable Aakash Lopez MD Unavailable [phone] Encounter Details Date Type Department Care Team (Late st Contact Info) Description 12/08/2022 Orders Only [facility] MEDICINE 230 [place] [address] Karla Sheth FNP [address] [place], [place] [phone] Other specified hypothyroidism (Primary Dx) Social History Tobacco Use Types Packs/Day Years [...] suspected to have Coronavirus/COVID-19? No / Unsure 12/07/2022 10:03 AM EST documented as of this encounter Plan of Treatment Upcoming Encounters Date Type Department Care Team (Late st Contact Info) Description 07/22/2025 10:30 AM EDT Office Visit [facility] MEDICINE [address] [place], [place] [phone] Karla Sheth FNP 505 [place], [place] [phone] Arrived 08/11/2025 10:00 AM EDT Clinical Support [facility] CHC MED & PEDS [address] [place], [place] [phone] Thuy Graejda, RN 505 [place], [place] [phone] Scheduled Orders Name Type Priority Associated Diagnoses Orde r Schedule TSH W/Reflex to FT4 Lab Routine Other specified hypothyroidism Expected: 12/08/2022 (Approximate), Expires: 12/08/2023 documented as of this encounter Procedures Procedure Name Priority Date/Time Associated Diagnosis Comments HEMATOXYLIN AND EOSIN STAIN Routine 01/12/2023 11:31 AM EDT Other specified hypothyroidism documented in this encounter Results * Hematoxylin and Eosin Stain (01/12/2023 11:31 AM EDT) 01/12/2023 11:3 1 AM EDT 01/12/2023 1:00 PM EDT [facility] - 01/16/2023 6:42 AM EDT ----- ------- Name: Ismael Krishnan Age/Sex: 77/F : 1945 Unit#: [id number] Attend Dr: OMAR VEGAS MD Re01/12/23 Status: [facility] Location: [facility].SS[facility] Disch: ----- ------- SPEC : [id number] RECD: 01/12/23 STATUS: ANJEL MEADE NUM: [id number] JOE: 01/12/[address]: OMAR VEGAS MD ENTERED: 01/12/23 SP TYPE: Surgical OTHR DR: Minal Ngo MD ORDERED: HE Stain/15, Gross Micro L4/5 Diagnosis A. Ileocolonic anastomosis, polypectomy: Colonic mucosa with prominent lymphoid aggregate; no dysplasia seen. B. Colon, 35 cm, polypectomy: Fragments of tubular adenoma; negative for high-grade dysplasia or carcinoma. C. Colon, 30 cm, polypectomy: Tubular adenoma; negative for high-grade dysplasia or carcinoma. D. Colon, 25 cm, polypectomy: Tubular adenoma; negative for high-grade dysplasia or carcinoma. E. Colon, 20 cm, polypectomy: Tubular adenoma; negative for high-grade dysplasia or carcinoma. Clinical History Pre-Op Dx: Screening Post-Op Dx: Colon polyps Microscopic Description A-E. Microscopic sections reviewed. Material Received A: Polyp ileocolonic anastomosis B: Polyp at 35 cm. C: Polyp at 30 cm. D: Polyp at 25 cm. E: Polyp at 20 cm. Gross Description Received in five parts. Part A: Received in formalin labeled Polyp ileocolonic anastomosis are two glistening, semitranslucent, soft, kendall, irregular tissue fragments, each measuring 0.3 cm. in greatest dimension, which are submitted in toto in a single cassette labeled A. Part B: Received in formalin labeled Polyp at 35 cm. are multiple glistening, semitranslucent, soft, kendall and kendall-pink, irregular, papular and polypoid tissue fragments, CONTINUED ON NEXT PAGE ----- ------- Name: Ismael Krishnan Age/Sex: 77/F : 1945 Unit#: [id number] Attend Dr: OMAR VEGAS MD Re01/12/23 Status: [facility] Location: [facility] Disch: ----- ------- SPEC : [id number] RECD: 01/12/23 STATUS: ANJEL MEADE NUM: [id number] JOE: 01/12/23-11[address] [facility] [address]: OMAR VEGAS MD ENTERED: 01/12/23 SP TYPE: Surgical OTHR DR: Minal Ngo MD ORDERED: HE Stain/15, Gross Micro L4/5 Gross Description (Continued) ranging from 0.3 to 1.2 cm. in greatest dimension and aggregating 2.0 x 2.0 x 0.45 cm. The larger, papular and polypoid tissue fragments are sectioned and the specimen is entirely submitted in a single cassette labeled B. Part C: Received in formalin labeled Polyp at 30 cm. is a 1.2 x 1.0 x 0.4 cm., velvety, hyperemic and congested, kendall-red, broad-based, papular tissue fragment. The resected base is inked and the specimen is sectioned and entirely submitted in a single cassette labeled C. Part D: Received in formalin labeled Polyp at 25 cm. is a 0.5 cm. in greatest dimension, hyperemic, kendall-pink, papular tissue fragment, which is submitted in toto in a single cassette labeled D. Part E: Received in formalin labeled Polyp at 20 cm. is a 0.6 cm. in greatest dimension, hyperemic, pink-red, papular tissue fragment, which is bisected and entirely submitted in a single cassette labeled E. EL Copies To: OMAR VEGAS MD [address] [place] [address] [address] [place] [address] Minal Ngo MD [address] [place] [address] ----- ------- Signed (signature on file) Erwin Noland MD 01/16/23 0642 ----- ------- END OF REPORT [facility] External Provider LAB BLO OD ORDERABLES Final Result [facility] [address] [place] [phone] documented in this encounter Visit Diagnoses Diagnosis Other specified hypothyroidism- Primary documented in this encounter Additional Health Concerns Assessment Noted Time PHQ-9 Depression Total Score: 0 12/07/19 23 10:51 AM EST documented as of this encounter Care Teams Food Service Relationship Specialty Start Date End Date Karla Sheth FNP [address] [place] [address] PCP - General Family Medicine 06/13/22 Carmine Haskins MD [address] [place] [address] Drive [address] [place] [address] Nephrology 10/01/24 Aakash Lopez MD [address] [place] [address] Hematology and Oncology 10/01/24 Ravindra Carbajal Patient Radio Frequency Design Engineer 10/01/24 documented as of this encounter
--- OUTSIDE RECORDS SUMMARY | 2025-07-22 09:38 | XMS_ITS | Encounter Summary ---
Author Organization [employer] Address 75 [facility] 7t [place] [address] Care Team Providers Care Business Office Technician Name Role Phone Karla Sheth Primary Care Provider [phone] Carmine Haskins MD Unavailable Aakash Lopez MD Unavailable [phone] Reason for Visit * Reason Onset Date Comments Med Refill 06/17/2025 Encounter Details Date Type Department Care Team (Late st Contact Info) Description 06/17/2025 Telephone [facility] MEDICINE [address] [place] [address] Karla Sheth FNP [address] [place], [place] [phone] Med Refill Social History Tobacco Use Types [...] encounter Miscellaneous Notes * Telephone Encounter - Cain Horta - 06/17/2025 2:17 PM EDT TC from pt requesting medication refill. Medications needing refill : oxyCODONE (Roxicodone) 5 MG immediate release tablet To be sent to: [facility]/pharmacy #[id number] [place] [address] documented in this encounter Plan of Treatment Upcoming Encounters Date Type Department Care Team (Late st Contact Info) Description 07/22/2025 10:30 AM EDT Office Visit [facility] MEDICINE [address] [place], [place] [phone] Karla Sheth FNP 505 [place], [place] [phone] Arrived 08/11/2025 10:00 AM EDT Clinical Support [facility] CHC MED & PEDS 505 [place], [place] [phone] Thuy Grajeda, CHERYL 505 [place] [address] documented as of this encounter Visit Diagnoses Not on filedocumented in this encounter Additional Health Concerns Assessment Noted Time PHQ-9 Depression Total Score: 0 10/01/20 9:35 AM EST documented as of this encounter Care Teams Business Office Technician Relationship Specialty Start Date End Date Karla Sheth FNP [address] [place] [address] PCP - General Family Medicine 06/13/22 Carmine Haskins MD [address] [place] [address] Nephrology 10/01/24 Aakash Lopez MD [address] [place] [address] Hematology and Oncology 10/01/24 Ravindra Carbajal Patient Rn Nicu 10/01/24 documented as of this encounter
--- OUTSIDE RECORDS SUMMARY | 2025-07-22 09:38 | XMS_ITS | Encounter Summary ---
Author Organization [employer] Address 75 [facility] 7 [place] [address] Care Team Providers Care Gravity Prospecting Observer Helper Name Role Phone Karla Sheth Primary Care Provider [phone] Carmine Haskins MD Unavailable Aakash Lopez MD Unavailable [phone] Reason for Visit * Reason Onset Date Comments Med Refill 07/17/2025 Encounter Details Date Type Department Care Team (Late st Contact Info) Description 07/17/2025 Refill [facility] MED & PEDS 505 [place], [place] [phone] Karla Sheth FNP 505 [place], [place] [phone] Chronic pain syndrome Social History Tobacco Use Types Packs/Day Years [...] encounter Miscellaneous Notes * Telephone Encounter - Petros Rodriguez - 07/17/2025 9:51 AM EDT TC from pt requesting medication refill. Medications needing refill : oxyCODONE (Roxicodone) 5 MG immediate release tablet To be sent to: [facility]/pharmacy #[address] [place] [address] documented in this encounter Plan of Treatment Upcoming Encounters Date Type Department Care Team ([facility] st Contact Info) Description 07/22/2025 10:30 AM EDT Office Visit [facility] MEDICINE 230 [place] [address] Karla Sheth FNP 505 [place] [address] Arrived 08/11/2025 10:00 AM EDT Clinical Support [facility] MED & PEDS [address] [place], [place] [phone] Thuy Grajeda, CHERYL 505 [place] [address] documented as of this encounter Visit Diagnoses Diagnosis Chronic pain syndrome documented in this encounter Additional Health Concerns Assessment Noted Time PHQ-9 Depression Total Score: 0 10/01/20 24 9:35 AM EST documented as of this encounter Care Teams Gravity Prospecting Observer Helper Relationship Specialty Start Date End Date Karla Sheth FNP 230 [place] [address] PCP - General Family Medicine 06/13/22 Carmine Haskins MD [address] [place] [address] Nephrology 10/01/24 Aakash Lopez MD [address] [place] [address] Hematology and Oncology 10/01/24 Ravindra Carbajal Patient Tax Auditor 10/01/24 documented as of this encounter
--- OUTSIDE RECORDS SUMMARY | 2025-07-22 09:38 | XMS_ITS | Encounter Summary ---
Author Organization [employer] Address 75 [facility] 7t [place] [address] Care Team Providers Care Uniform Patrol Police Officer Name Role Phone KellyGulshan rodgersviral JOHNSON Primary Care Provider [phone] Carmine Haskins MD Unavailable Aakash Lopez MD Unavailable [phone] Encounter Details Date Type Department Care Team (Latest Contact Info) Description 07/22/2025 Travel Social History Tobacco Use Types Packs/Day Years [...] Description 07/22/2025 10:30 AM EDT Office Visit [facility] MEDICINE [address] [place] [address] Karla Sheth FNP [address] [place] [address] Arrived 08/11/2025 10:00 AM EDT Clinical Support [facility] CHC MED & PEDS 505 [place] [address] Thuy Grajeda, CHERYL [address] [place] [address] documented as of this encounter Visit Diagnoses Not on filedocumented in this encounter Additional Health Concerns Assessment Noted Time PHQ-9 Depression Total Score: 0 10/01/20 24 9:35 AM EST documented as of this encounter Care Teams Uniform Patrol Police Officer Relationship Specialty Start Date End Date Karla Sheth FNP [address] [place] [address] PCP - General Family Medicine 06/13/22 Carmine Haskins MD [address] [place] [address] Nephrology 10/01/24 Aakash Lopez MD [address] [place] [address] Hematology and Oncology 10/01/24 Ravindra Carbajal Patient Manager Terminal 10/01/24 documented as of this encounter
[2025-07-22 11:07] LABS: MANUAL DIFF FLAG NO
[2025-07-22 11:27] LABS: Hematocrit 31.1 % (37.0-47.0); Hemoglobin 9.5 g/dl (12.0-16.0); Imm Gran Abs Auto 0.09 X10*3/uL (0.00-0.03); Imm Gran Pct Auto 0.8 % (0.0-0.4); Lymphocytes Absolute Auto 2.0 X10*3/uL (1.2-4.9); Mean Corpuscular HGB Conc 30.5 g/dl (31.0-35.0); Mean Corpuscular Hemoglobin 24.2 pg (27.0-33.0); Mean Corpuscular Volume 79.1 fL (80.0-98.0); NRBC Abs Auto 0.000 X10*3/uL (0.0-0.012); NRBC Pct Auto 0.0 /100WBC (0.0-0.2); Platelet Count 309 X10*3/uL (160-400); Red Blood Count 3.93 X10*6/uL (4.20-5.50); White Blood Count 11.1 X10*3/uL (4.8-10.8)
[2025-07-22 11:50] LABS: Alanine Aminotransferase 13 U/L (0-31); Albumin Level 4.4 g/dL (3.5-5.0); Alkaline Phosphatase 88 U/L (39-117); Anion Gap 12 (12-20); Aspartate Amino Transferase 23 U/L (5-31); Blood Urea Nitrogen 10 mg/dL (9-16); Calcium 9.3 mg/dL (8.4-10.2); Carbon Dioxide 28 mmol/L (22-29); Chloride 104 mmol/L (96-108); Estimated Glomerular Filt Rate > 60; Potassium 3.9 mmol/L (3.3-5.1); Sodium 140 mmol/L (135-145); Total Protein 7.7 g/dL (6.5-8.0)
[2025-07-22 12:27] LABS: Protein/Creatinine Ratio, Ur 0.18 (<0.2); Total Protein Urine Random 13 mg/dL (<12)
[2025-07-23 10:39] LABS: Chlamydia pneumoniae PCR Not Detected (Not Detect.); Coronavirus 229E PCR Not Detected (Not Detect.); Coronavirus HKU1 PCR Not Detected (Not Detect.); Coronavirus NL63 PCR Not Detected (Not Detect.); Coronavirus OC43 PCR Not Detected (Not Detect.); RSV PCR Not Detected (Not Detect.); Rhino/Enterovirus PCR Not Detected (Not Detect.)
[2025-07-23 10:43] LABS: Influenza A H1 PCR Not Detected (Not Detect.); Influenza A H1-2009 PCR Not Detected (Not Detect.); Influenza A H3 PCR Not Detected (Not Detect.); SARS-CoV-2 PCR Not Detected (Not Detect.)
== END 2025-07-22 08:59 | disposition home or self-care (01) ==
LOC: HO.HHCL 08:58
PROVIDERS: Internal Medicine Medical Oncology; PCP Registered Nurse; Visit Provider Internal Medicine Nephrology
DX: I10 Essential (primary) hypertension (principal); C18.9 Malignant neoplasm of colon, unspecified; R05.1 Acute cough
CPT/HCPCS: 36415; 80053; 82570; 84156; 85025; 87633